=== PATIENT | male | born 1935 | race Caucasian/White ===

== ENCOUNTER → 2016-04-11 | Outpatient (REF) | payer MEDICARE, OTHER, MEDICAID ==
[2016-04-11 12:24] LABS: VITAMIN B12 LEVEL 876 PG/ML
[2016-04-11 12:25] LABS: FOLATE > 24.0 NG/ML
== END | disposition home or self-care (01) ==
LOC: M LABNEURO 11:05
PROVIDERS: ATTEND Psychiatry & Neurology Neurology
DX: G62.9 Polyneuropathy, unspecified (principal); E03.9 Hypothyroidism, unspecified; R41.3 Other amnesia

== ENCOUNTER 2017-04-18 11:20 | Inpatient (IN) | payer MEDICARE, OTHER, MEDICAID ==
[2017-04-18 11:52] LABS: BASO # 0.1 10^3/uL (0.0-0.2); BASO % 0.4 % (0.0-1.0); EOS # 0.2 10^3/uL (0.0-0.50); EOS % 1.3 % (0.0-3.0); HEMATOCRIT 38.5 % (42.0-52.0); HEMOGLOBIN 12.9 g/dl (14.0-18.0); IMMATURE GRANULOCYTE % 0.6 % (0-3.0); LYMPH # 1.1 10^3/uL (1.5-4.5); LYMPH % 8.5 % (24.0-44.0); MEAN CORPUSCULAR HEMOGLOBIN 30.1 pg (27.0-33.0); MEAN CORPUSCULAR HGB CONC 33.5 g/dl (32.0-36.5); MEAN CORPUSCULAR VOLUME 89.7 fl (80.0-96.0); MONO # 1.5 10^3/uL (0.0-0.8); NEUTROPHILS # 10.4 10^3/uL (1.8-7.7); NEUTROPHILS % 78.2 % (36.0-66.0); PLATELET COUNT, AUTOMATED 210 10^3/uL (150-450); RED BLOOD COUNT 4.29 10^6/uL (4.30-6.10); RED CELL DISTRIBUTION WIDTH 13.1 % (11.5-14.5); WHITE BLOOD COUNT 13.2 10^3/uL (4.0-10.0)
[2017-04-18 12:08] LABS: INR 0.98; PROTHROMBIN TIME 13.1 SECONDS (12.4-14.5)
[2017-04-18 12:16] LABS: CPK CREATINE PHOSPHOKINASE 37 U/L (39-308); TROPONIN I < 0.02 NG/ML (< 0.10)
[2017-04-18] MEDS: NS 500 ML IV (12:27)
[2017-04-18 13:41] LABS: ANION GAP 5 MEQ/L (8-16); BLOOD UREA NITROGEN 17 MG/DL (7-18); CALCIUM LEVEL 8.4 MG/DL (8.8-10.2); CARBON DIOXIDE LEVEL 31 MEQ/L (21-32); CHLORIDE LEVEL 94 MEQ/L (98-107); CREATININE FOR GFR 0.87 MG/DL (0.70-1.30); GLOMERULAR FILTRATION RATE > 60.0 (>35); GLUCOSE, FASTING 189 MG/DL (70-100); MAGNESIUM LEVEL 2.5 MG/DL (1.8-2.4); POTASSIUM SERUM 4.8 MEQ/L (3.5-5.1); SODIUM LEVEL 130 MEQ/L (136-145)
[2017-04-18] MEDS ORDERED: ONDANSETRON 4MG/2ML VIAL (J2405) IV (15:00)
[2017-04-18] MEDS: FUROSEMIDE 40 MG TAB PO (17:02)
[2017-04-18] MEDS: DOCUSATE SODIUM 100 MG CAP PO (17:02)
[2017-04-18] MEDS: ASPIRIN 81 MG ENTERIC TAB PO (17:03)
[2017-04-18] MEDS: CETIRIZINE (ZyrTEC) 10 MG TAB PO (17:03)
[2017-04-18 17:24] LABS: BEDSIDE GLUCOSE 148 MG/DL (83-110)
[2017-04-18] MEDS ORDERED: GLUCOSE 4 GM CHEW TABLET PO (17:45)
[2017-04-18] MEDS ORDERED: GLUCAGON FOR INJ 1 MG VIAL (J1610) SC (17:45)
[2017-04-18] MEDS ORDERED: DEXTROSE 50% 50 ML SYRINGE IV (17:45)
[2017-04-18] MEDS: HumaLOG INSULIN (NovoLOG) PER UNIT SC ×2 (18:07→21:00)
[2017-04-18 18:57] LABS: CK-MB VALUE MASS 1.1 NG/ML (0.0-3.6); CPK CREATINE PHOSPHOKINASE 36 U/L (39-308); MB/CK RELATIVE INDEX 3.05 (< OR =4); TROPONIN I < 0.02 NG/ML (< 0.10)
[2017-04-18] MEDS: HEPARIN SOD (PORCINE) 5000 UNITS/ML VIAL SC (22:08)
[2017-04-18] MEDS: COSOPT OCUMETER PLUS 10ML (DORZOLAMIDE/TIMOLOL) OU (22:08)
[2017-04-18] MEDS: LATANOPROST 0.005% OPHTH SOLN 2.5 ML OU (22:09)
[2017-04-18] MEDS: TAMSULOSIN 0.4 MG CAP PO (22:09)
[2017-04-18] MEDS: CARVedilol 3.125 MG TAB PO (22:09)
[2017-04-18] MEDS: MEMANTINE 5MG TABLET (NAMENDA) PO (22:09)
[2017-04-18] MEDS: SIMVASTATIN 20 MG TAB PO (22:10)
[2017-04-18] MEDS: FINASTERIDE 5 MG TAB PO (22:10)
[2017-04-18] MEDS: LACTOBACILLUS ACIDOPHILUS CAP (BACID) PO (22:10)
[2017-04-19 00:27] LABS: CPK CREATINE PHOSPHOKINASE 55 U/L (39-308); MB/CK RELATIVE INDEX 1.81 (< OR =4); TROPONIN I < 0.02 NG/ML (< 0.10)
[2017-04-19 06:08] LABS: HEMATOCRIT 36.3 % (42.0-52.0); HEMOGLOBIN 12.2 g/dl (14.0-18.0); MEAN CORPUSCULAR HEMOGLOBIN 29.8 pg (27.0-33.0); MEAN CORPUSCULAR HGB CONC 33.6 g/dl (32.0-36.5); MEAN CORPUSCULAR VOLUME 88.5 fl (80.0-96.0); PLATELET COUNT, AUTOMATED 193 10^3/uL (150-450); WHITE BLOOD COUNT 8.9 10^3/uL (4.0-10.0)
[2017-04-19 06:40] LABS: ESTIMATED AVERAGE GLUCOSE 143 MG/DL (60-110); HEMOGLOBIN A1c 6.6 %
[2017-04-19 07:01] LABS: ANION GAP 8 MEQ/L (8-16); BLOOD UREA NITROGEN 13 MG/DL (7-18); CALCIUM LEVEL 8.1 MG/DL (8.8-10.2); CARBON DIOXIDE LEVEL 28 MEQ/L (21-32); CHLORIDE LEVEL 93 MEQ/L (98-107); CREATININE FOR GFR 0.66 MG/DL (0.70-1.30); FREE THYROXINE INDEX 2.4 % (1.4-3.8); GLOMERULAR FILTRATION RATE > 60.0 (>35); GLUCOSE, FASTING 154 MG/DL (70-100); POTASSIUM SERUM 3.9 MEQ/L (3.5-5.1); SODIUM LEVEL 129 MEQ/L (136-145); T UPTAKE 36 % (33-40); THYROXINE (T4) 6.7 UG/DL (4.5-12.0)
[2017-04-19 08:37] LABS: BEDSIDE GLUCOSE 156 MG/DL (83-110)
[2017-04-19] MEDS: OCUVITE 1 TAB PO (09:01)
[2017-04-19] MEDS: BENZONATATE 100 MG CAP PO ×2 (09:03→21:03)
[2017-04-19] MEDS: ASPIRIN 81 MG ENTERIC TAB PO (09:03)
[2017-04-19] MEDS: MEMANTINE 5MG TABLET (NAMENDA) PO ×2 (09:03→21:04)
[2017-04-19] MEDS: DONEPEZIL 5 MG TAB PO (09:05)
[2017-04-19] MEDS: FUROSEMIDE 40 MG TAB PO (09:06)
[2017-04-19] MEDS: DOCUSATE SODIUM 100 MG CAP PO (09:06)
[2017-04-19] MEDS: CARVedilol 3.125 MG TAB PO ×2 (09:06→21:04)
[2017-04-19] MEDS: CETIRIZINE (ZyrTEC) 10 MG TAB PO (09:06)
[2017-04-19] MEDS: COSOPT OCUMETER PLUS 10ML (DORZOLAMIDE/TIMOLOL) OU ×2 (09:07→21:05)
[2017-04-19] MEDS: LATANOPROST 0.005% OPHTH SOLN 2.5 ML OU ×2 (09:07→21:05)
[2017-04-19] MEDS: HEPARIN SOD (PORCINE) 5000 UNITS/ML VIAL SC ×2 (09:07→21:03)
[2017-04-19] MEDS: HumaLOG INSULIN (NovoLOG) PER UNIT SC ×4 (09:11→21:00)
[2017-04-19 17:35] LABS: BEDSIDE GLUCOSE 237 MG/DL (83-110)
[2017-04-19 17:35] LABS: BEDSIDE GLUCOSE 165 MG/DL (83-110)
[2017-04-19] MEDS: FINASTERIDE 5 MG TAB PO (21:04)
[2017-04-19] MEDS: LACTOBACILLUS ACIDOPHILUS CAP (BACID) PO (21:04)
[2017-04-19] MEDS: SIMVASTATIN 20 MG TAB PO (21:05)
[2017-04-19] MEDS: TAMSULOSIN 0.4 MG CAP PO (21:05)
[2017-04-19 22:56] LABS: BEDSIDE GLUCOSE 170 MG/DL (83-110)
[2017-04-20] MEDS: ALBUTEROL SULFATE 2.5 MG/0.5 ML INH NEB SOLN NEB (03:18)
[2017-04-20 05:48] LABS: HEMATOCRIT 35.3 % (42.0-52.0); MEAN CORPUSCULAR HEMOGLOBIN 30.2 pg (27.0-33.0); MEAN CORPUSCULAR VOLUME 88.7 fl (80.0-96.0); PLATELET COUNT, AUTOMATED 177 10^3/uL (150-450); RED BLOOD COUNT 3.98 10^6/uL (4.30-6.10); RED CELL DISTRIBUTION WIDTH 12.8 % (11.5-14.5); WHITE BLOOD COUNT 9.6 10^3/uL (4.0-10.0)
[2017-04-20 06:06] LABS: ANION GAP 8 MEQ/L (8-16); BLOOD UREA NITROGEN 12 MG/DL (7-18); CALCIUM LEVEL 7.9 MG/DL (8.8-10.2); CARBON DIOXIDE LEVEL 28 MEQ/L (21-32); CHLORIDE LEVEL 90 MEQ/L (98-107); CREATININE FOR GFR 0.53 MG/DL (0.70-1.30); GLOMERULAR FILTRATION RATE > 60.0 (>35); GLUCOSE, FASTING 150 MG/DL (70-100); MAGNESIUM LEVEL 1.8 MG/DL (1.8-2.4); POTASSIUM SERUM 3.7 MEQ/L (3.5-5.1); SODIUM LEVEL 126 MEQ/L (136-145)
[2017-04-20] MEDS: HumaLOG INSULIN (NovoLOG) PER UNIT SC ×4 (07:30→20:45)
[2017-04-20 08:23] LABS: OSMOLALITY SERUM 260 MOSM/KG (280-301)
[2017-04-20] MEDS ORDERED: IPRATROPIUM 0.5MG/ALBUTEROL 2.5MG INH SOL UD 3ML (DUONEB)(J7620) NEB (10:30)
[2017-04-20] MEDS: DOCUSATE SODIUM 100 MG CAP PO (10:40)
[2017-04-20] MEDS: HEPARIN SOD (PORCINE) 5000 UNITS/ML VIAL SC ×2 (10:40→20:53)
[2017-04-20] MEDS: MEMANTINE 5MG TABLET (NAMENDA) PO ×2 (10:40→20:52)
[2017-04-20] MEDS: CARVedilol 3.125 MG TAB PO ×2 (10:41→20:52)
[2017-04-20] MEDS: CETIRIZINE (ZyrTEC) 10 MG TAB PO (10:42)
[2017-04-20] MEDS: FUROSEMIDE 40 MG TAB PO (10:42)
[2017-04-20] MEDS: ASPIRIN 81 MG ENTERIC TAB PO (10:42)
[2017-04-20] MEDS: DONEPEZIL 5 MG TAB PO (10:43)
[2017-04-20] MEDS: OCUVITE 1 TAB PO (10:43)
[2017-04-20] MEDS: NS 500 ML IV (10:44)
[2017-04-20 10:59] LABS: SODIUM,RANDOM URINE 94 MEQ/L
[2017-04-20] MEDS: LATANOPROST 0.005% OPHTH SOLN 2.5 ML OU ×2 (11:20→20:54)
[2017-04-20] MEDS: COSOPT OCUMETER PLUS 10ML (DORZOLAMIDE/TIMOLOL) OU ×2 (11:20→20:53)
[2017-04-20 11:35] LABS: OSMOLALITY URINE 670 MOSM/KG (500-800)
[2017-04-20 12:35] LABS: BEDSIDE GLUCOSE 191 MG/DL (83-110)
[2017-04-20 13:18] LABS: SODIUM LEVEL 125 MEQ/L (136-145)
[2017-04-20] MEDS: IPRATROPIUM 0.5MG/ALBUTEROL 2.5MG INH SOL UD 3ML (DUONEB)(J7620) NEB ×2 (13:31→21:03)
[2017-04-20] MEDS: CEFTRIAXONE SOD 1 GM in APPROPRIATE DILUENT 1 EA IV (17:22)
[2017-04-20 17:26] LABS: BEDSIDE GLUCOSE 150 MG/DL (83-110)
[2017-04-20] MEDS: TAMSULOSIN 0.4 MG CAP PO (20:52)
[2017-04-20] MEDS: LACTOBACILLUS ACIDOPHILUS CAP (BACID) PO (20:52)
[2017-04-20] MEDS: FINASTERIDE 5 MG TAB PO (20:52)
[2017-04-20] MEDS: SIMVASTATIN 20 MG TAB PO (20:52)
[2017-04-20] MEDS: SODIUM CHLORIDE 1 GM TAB PO (22:31)
[2017-04-21] MEDS: IPRATROPIUM 0.5MG/ALBUTEROL 2.5MG INH SOL UD 3ML (DUONEB)(J7620) NEB ×4 (01:21→21:19)
[2017-04-21 06:08] LABS: HEMATOCRIT 34.9 % (42.0-52.0); HEMOGLOBIN 11.9 g/dl (14.0-18.0); MEAN CORPUSCULAR HGB CONC 34.1 g/dl (32.0-36.5); MEAN CORPUSCULAR VOLUME 87.9 fl (80.0-96.0); PLATELET COUNT, AUTOMATED 162 10^3/uL (150-450); RED BLOOD COUNT 3.97 10^6/uL (4.30-6.10); RED CELL DISTRIBUTION WIDTH 12.6 % (11.5-14.5)
[2017-04-21 06:23] LABS: ANION GAP 9 MEQ/L (8-16); BLOOD UREA NITROGEN 15 MG/DL (7-18); CALCIUM LEVEL 7.8 MG/DL (8.8-10.2); CARBON DIOXIDE LEVEL 27 MEQ/L (21-32); CHLORIDE LEVEL 91 MEQ/L (98-107); GLOMERULAR FILTRATION RATE > 60.0 (>35); GLUCOSE, FASTING 131 MG/DL (70-100); MAGNESIUM LEVEL 1.9 MG/DL (1.8-2.4); POTASSIUM SERUM 3.3 MEQ/L (3.5-5.1); SODIUM LEVEL 127 MEQ/L (136-145)
[2017-04-21] MEDS: MEMANTINE 5MG TABLET (NAMENDA) PO ×2 (08:54→21:29)
[2017-04-21] MEDS: CETIRIZINE (ZyrTEC) 10 MG TAB PO (08:55)
[2017-04-21] MEDS: OCUVITE 1 TAB PO (08:55)
[2017-04-21] MEDS: ASPIRIN 81 MG ENTERIC TAB PO (08:55)
[2017-04-21] MEDS: DOCUSATE SODIUM 100 MG CAP PO (08:55)
[2017-04-21] MEDS: DONEPEZIL 5 MG TAB PO (08:55)
[2017-04-21] MEDS: FUROSEMIDE 40 MG TAB PO (08:55)
[2017-04-21] MEDS: CARVedilol 3.125 MG TAB PO ×2 (08:56→21:29)
[2017-04-21] MEDS: POTASSIUM CHLORIDE 10 MEQ SR TABLET PO (08:56)
[2017-04-21] MEDS: LATANOPROST 0.005% OPHTH SOLN 2.5 ML OU ×2 (08:57→21:29)
[2017-04-21] MEDS: HEPARIN SOD (PORCINE) 5000 UNITS/ML VIAL SC ×2 (08:57→21:29)
[2017-04-21] MEDS: HumaLOG INSULIN (NovoLOG) PER UNIT SC ×4 (08:57→20:31)
[2017-04-21] MEDS: SODIUM CHLORIDE 1 GM TAB PO ×2 (08:57→21:28)
[2017-04-21] MEDS: COSOPT OCUMETER PLUS 10ML (DORZOLAMIDE/TIMOLOL) OU ×2 (08:58→21:30)
[2017-04-21 14:21] LABS: BEDSIDE GLUCOSE 223 MG/DL (83-110)
[2017-04-21 14:21] LABS: BEDSIDE GLUCOSE 168 MG/DL (83-110)
[2017-04-21] MEDS: CEFTRIAXONE SOD 1 GM in APPROPRIATE DILUENT 1 EA IV (14:21)
[2017-04-21 16:45] LABS: BEDSIDE GLUCOSE 91 MG/DL (83-110)
[2017-04-21 20:37] LABS: BEDSIDE GLUCOSE 112 MG/DL (83-110)
[2017-04-21] MEDS: LACTOBACILLUS ACIDOPHILUS CAP (BACID) PO (21:28)
[2017-04-21] MEDS: TAMSULOSIN 0.4 MG CAP PO (21:29)
[2017-04-21] MEDS: SIMVASTATIN 20 MG TAB PO (21:29)
[2017-04-21] MEDS: FINASTERIDE 5 MG TAB PO (21:29)
[2017-04-22] MEDS: IPRATROPIUM 0.5MG/ALBUTEROL 2.5MG INH SOL UD 3ML (DUONEB)(J7620) NEB ×4 (01:42→21:18)
[2017-04-22 06:02] LABS: HEMATOCRIT 35.5 % (42.0-52.0); HEMOGLOBIN 12.1 g/dl (14.0-18.0); MEAN CORPUSCULAR HEMOGLOBIN 29.4 pg (27.0-33.0); MEAN CORPUSCULAR HGB CONC 34.1 g/dl (32.0-36.5); MEAN CORPUSCULAR VOLUME 86.4 fl (80.0-96.0); PLATELET COUNT, AUTOMATED 194 10^3/uL (150-450); RED BLOOD COUNT 4.11 10^6/uL (4.30-6.10); RED CELL DISTRIBUTION WIDTH 12.9 % (11.5-14.5); WHITE BLOOD COUNT 6.4 10^3/uL (4.0-10.0)
[2017-04-22 06:22] LABS: ANION GAP 7 MEQ/L (8-16); BLOOD UREA NITROGEN 12 MG/DL (7-18); CALCIUM LEVEL 7.8 MG/DL (8.8-10.2); CARBON DIOXIDE LEVEL 28 MEQ/L (21-32); CHLORIDE LEVEL 91 MEQ/L (98-107); CREATININE FOR GFR 0.52 MG/DL (0.70-1.30); GLOMERULAR FILTRATION RATE > 60.0 (>35); GLUCOSE, FASTING 144 MG/DL (70-100); MAGNESIUM LEVEL 1.9 MG/DL (1.8-2.4); POTASSIUM SERUM 3.8 MEQ/L (3.5-5.1); SODIUM LEVEL 126 MEQ/L (136-145)
[2017-04-22] MEDS: HumaLOG INSULIN (NovoLOG) PER UNIT SC ×4 (07:30→20:35)
[2017-04-22] MEDS: DONEPEZIL 5 MG TAB PO (08:27)
[2017-04-22] MEDS: CETIRIZINE (ZyrTEC) 10 MG TAB PO (08:28)
[2017-04-22] MEDS: DOCUSATE SODIUM 100 MG CAP PO (08:28)
[2017-04-22] MEDS: OCUVITE 1 TAB PO (08:28)
[2017-04-22] MEDS: MEMANTINE 5MG TABLET (NAMENDA) PO ×2 (08:28→22:25)
[2017-04-22] MEDS: ASPIRIN 81 MG ENTERIC TAB PO (08:28)
[2017-04-22] MEDS: COSOPT OCUMETER PLUS 10ML (DORZOLAMIDE/TIMOLOL) OU ×2 (08:29→22:26)
[2017-04-22] MEDS: HEPARIN SOD (PORCINE) 5000 UNITS/ML VIAL SC ×2 (08:29→22:24)
[2017-04-22] MEDS: LATANOPROST 0.005% OPHTH SOLN 2.5 ML OU ×2 (08:29→22:26)
[2017-04-22] MEDS: FUROSEMIDE 40 MG TAB PO ×2 (09:00)
[2017-04-22] MEDS: CARVedilol 3.125 MG TAB PO ×2 (09:00→22:25)
[2017-04-22 09:40] LABS: CORTISOL AM 22.4 UG/DL (4.3-22.4)
[2017-04-22] MEDS: SODIUM CHLORIDE 1 GM TAB PO ×3 (10:26→22:28)
[2017-04-22 12:01] LABS: BEDSIDE GLUCOSE 188 MG/DL (83-110)
[2017-04-22] MEDS: CEFTRIAXONE SOD 1 GM in APPROPRIATE DILUENT 1 EA IV (13:32)
[2017-04-22 17:07] LABS: BEDSIDE GLUCOSE 136 MG/DL (83-110)
[2017-04-22 20:31] LABS: BEDSIDE GLUCOSE 173 MG/DL (83-110)
[2017-04-22] MEDS: LACTOBACILLUS ACIDOPHILUS CAP (BACID) PO (22:24)
[2017-04-22] MEDS: TAMSULOSIN 0.4 MG CAP PO (22:25)
[2017-04-22] MEDS: SIMVASTATIN 20 MG TAB PO (22:25)
[2017-04-22] MEDS: FINASTERIDE 5 MG TAB PO (22:25)
[2017-04-23] MEDS: IPRATROPIUM 0.5MG/ALBUTEROL 2.5MG INH SOL UD 3ML (DUONEB)(J7620) NEB ×4 (01:29→19:44)
[2017-04-23 06:49] LABS: HEMATOCRIT 36.7 % (42.0-52.0); HEMOGLOBIN 12.5 g/dl (14.0-18.0); MEAN CORPUSCULAR HEMOGLOBIN 29.6 pg (27.0-33.0); MEAN CORPUSCULAR HGB CONC 34.1 g/dl (32.0-36.5); PLATELET COUNT, AUTOMATED 215 10^3/uL (150-450); RED BLOOD COUNT 4.22 10^6/uL (4.30-6.10); RED CELL DISTRIBUTION WIDTH 12.9 % (11.5-14.5); WHITE BLOOD COUNT 8.4 10^3/uL (4.0-10.0)
[2017-04-23 07:05] LABS: ANION GAP 7 MEQ/L (8-16); BLOOD UREA NITROGEN 11 MG/DL (7-18); CALCIUM LEVEL 8.1 MG/DL (8.8-10.2); CARBON DIOXIDE LEVEL 29 MEQ/L (21-32); CHLORIDE LEVEL 91 MEQ/L (98-107); CREATININE FOR GFR 0.58 MG/DL (0.70-1.30); GLOMERULAR FILTRATION RATE > 60.0 (>35); GLUCOSE, FASTING 141 MG/DL (70-100); MAGNESIUM LEVEL 1.9 MG/DL (1.8-2.4); POTASSIUM SERUM 3.9 MEQ/L (3.5-5.1); SODIUM LEVEL 127 MEQ/L (136-145)
[2017-04-23] MEDS: HumaLOG INSULIN (NovoLOG) PER UNIT SC ×4 (07:30→20:42)
[2017-04-23] MEDS: SODIUM CHLORIDE 1 GM TAB PO ×3 (09:47→20:53)
[2017-04-23] MEDS: HEPARIN SOD (PORCINE) 5000 UNITS/ML VIAL SC ×2 (09:47→20:53)
[2017-04-23] MEDS: DOCUSATE SODIUM 100 MG CAP PO (09:47)
[2017-04-23] MEDS: MEMANTINE 5MG TABLET (NAMENDA) PO ×2 (09:48→20:53)
[2017-04-23] MEDS: ASPIRIN 81 MG ENTERIC TAB PO (09:48)
[2017-04-23] MEDS: OCUVITE 1 TAB PO (09:48)
[2017-04-23] MEDS: FUROSEMIDE 40 MG TAB PO (09:49)
[2017-04-23] MEDS: CETIRIZINE (ZyrTEC) 10 MG TAB PO (09:49)
[2017-04-23] MEDS: DONEPEZIL 5 MG TAB PO (09:49)
[2017-04-23] MEDS: CARVedilol 3.125 MG TAB PO ×2 (09:50→20:54)
[2017-04-23] MEDS: LATANOPROST 0.005% OPHTH SOLN 2.5 ML OU ×2 (09:52→20:53)
[2017-04-23] MEDS: COSOPT OCUMETER PLUS 10ML (DORZOLAMIDE/TIMOLOL) OU ×2 (09:53→20:53)
[2017-04-23 11:57] LABS: BEDSIDE GLUCOSE 307 MG/DL (83-110)
[2017-04-23] MEDS: CEFTRIAXONE SOD 1 GM in APPROPRIATE DILUENT 1 EA IV (13:06)
[2017-04-23] MEDS: ACETAMINOPHEN TAB 650MG DOSE (2X325MG) PO (13:10)
[2017-04-23 17:34] LABS: BEDSIDE GLUCOSE 133 MG/DL (83-110)
[2017-04-23] MEDS: FINASTERIDE 5 MG TAB PO (20:53)
[2017-04-23] MEDS: LACTOBACILLUS ACIDOPHILUS CAP (BACID) PO (20:53)
[2017-04-23] MEDS: TAMSULOSIN 0.4 MG CAP PO (20:53)
[2017-04-23] MEDS: SIMVASTATIN 20 MG TAB PO (20:54)
[2017-04-23 21:22] LABS: BEDSIDE GLUCOSE 129 MG/DL (83-110)
[2017-04-24] MEDS: IPRATROPIUM 0.5MG/ALBUTEROL 2.5MG INH SOL UD 3ML (DUONEB)(J7620) NEB ×4 (01:21→21:49)
[2017-04-24 06:28] LABS: HEMATOCRIT 34.6 % (42.0-52.0); HEMOGLOBIN 11.8 g/dl (14.0-18.0); MEAN CORPUSCULAR HEMOGLOBIN 29.8 pg (27.0-33.0); MEAN CORPUSCULAR HGB CONC 34.1 g/dl (32.0-36.5); MEAN CORPUSCULAR VOLUME 87.4 fl (80.0-96.0); PLATELET COUNT, AUTOMATED 218 10^3/uL (150-450); RED BLOOD COUNT 3.96 10^6/uL (4.30-6.10); RED CELL DISTRIBUTION WIDTH 12.5 % (11.5-14.5); WHITE BLOOD COUNT 8.1 10^3/uL (4.0-10.0)
[2017-04-24 06:38] LABS: ANION GAP 7 MEQ/L (8-16); BLOOD UREA NITROGEN 10 MG/DL (7-18); CALCIUM LEVEL 8.1 MG/DL (8.8-10.2); CARBON DIOXIDE LEVEL 30 MEQ/L (21-32); CHLORIDE LEVEL 90 MEQ/L (98-107); CREATININE FOR GFR 0.46 MG/DL (0.70-1.30); GLOMERULAR FILTRATION RATE > 60.0 (>35); GLUCOSE, FASTING 129 MG/DL (70-100); MAGNESIUM LEVEL 1.8 MG/DL (1.8-2.4); POTASSIUM SERUM 3.7 MEQ/L (3.5-5.1); SODIUM LEVEL 127 MEQ/L (136-145)
[2017-04-24] MEDS: HumaLOG INSULIN (NovoLOG) PER UNIT SC ×4 (07:30→22:07)
[2017-04-24] MEDS: DONEPEZIL 5 MG TAB PO (10:31)
[2017-04-24] MEDS: OCUVITE 1 TAB PO (10:32)
[2017-04-24] MEDS: CARVedilol 3.125 MG TAB PO ×2 (10:32→22:08)
[2017-04-24] MEDS: ASPIRIN 81 MG ENTERIC TAB PO (10:32)
[2017-04-24] MEDS: DOCUSATE SODIUM 100 MG CAP PO (10:32)
[2017-04-24] MEDS: FUROSEMIDE 40 MG TAB PO (10:33)
[2017-04-24] MEDS: SODIUM CHLORIDE 1 GM TAB PO ×3 (10:33→22:07)
[2017-04-24] MEDS: MEMANTINE 5MG TABLET (NAMENDA) PO ×2 (10:33→22:08)
[2017-04-24] MEDS: CETIRIZINE (ZyrTEC) 10 MG TAB PO (10:33)
[2017-04-24] MEDS: HEPARIN SOD (PORCINE) 5000 UNITS/ML VIAL SC ×2 (10:34→22:07)
[2017-04-24] MEDS: COSOPT OCUMETER PLUS 10ML (DORZOLAMIDE/TIMOLOL) OU ×2 (10:34→22:06)
[2017-04-24] MEDS: LATANOPROST 0.005% OPHTH SOLN 2.5 ML OU ×2 (10:34→22:06)
[2017-04-24 12:09] LABS: BEDSIDE GLUCOSE 260 MG/DL (83-110)
[2017-04-24] MEDS: CEFTRIAXONE SOD 1 GM in APPROPRIATE DILUENT 1 EA IV (14:41)
[2017-04-24 20:53] LABS: BEDSIDE GLUCOSE 202 MG/DL (83-110)
[2017-04-24 21:30] LABS: BEDSIDE GLUCOSE 109 MG/DL (83-110)
[2017-04-24] MEDS: LACTOBACILLUS ACIDOPHILUS CAP (BACID) PO (22:07)
[2017-04-24] MEDS: TAMSULOSIN 0.4 MG CAP PO (22:08)
[2017-04-24] MEDS: SIMVASTATIN 20 MG TAB PO (22:08)
[2017-04-24] MEDS: FINASTERIDE 5 MG TAB PO (22:08)
[2017-04-25] MEDS: IPRATROPIUM 0.5MG/ALBUTEROL 2.5MG INH SOL UD 3ML (DUONEB)(J7620) NEB ×4 (02:00→21:55)
[2017-04-25 06:08] LABS: HEMATOCRIT 35.9 % (42.0-52.0); HEMOGLOBIN 12.2 g/dl (14.0-18.0); MEAN CORPUSCULAR HEMOGLOBIN 29.4 pg (27.0-33.0); MEAN CORPUSCULAR VOLUME 86.5 fl (80.0-96.0); PLATELET COUNT, AUTOMATED 244 10^3/uL (150-450); RED BLOOD COUNT 4.15 10^6/uL (4.30-6.10); RED CELL DISTRIBUTION WIDTH 12.7 % (11.5-14.5); WHITE BLOOD COUNT 7.8 10^3/uL (4.0-10.0)
[2017-04-25 06:25] LABS: ANION GAP 8 MEQ/L (8-16); BLOOD UREA NITROGEN 10 MG/DL (7-18); CALCIUM LEVEL 8.2 MG/DL (8.8-10.2); CARBON DIOXIDE LEVEL 28 MEQ/L (21-32); CHLORIDE LEVEL 92 MEQ/L (98-107); CREATININE FOR GFR 0.45 MG/DL (0.70-1.30); GLOMERULAR FILTRATION RATE > 60.0 (>35); GLUCOSE, FASTING 120 MG/DL (70-100); POTASSIUM SERUM 3.8 MEQ/L (3.5-5.1); SODIUM LEVEL 128 MEQ/L (136-145)
[2017-04-25] MEDS: HumaLOG INSULIN (NovoLOG) PER UNIT SC ×4 (07:13→21:00)
[2017-04-25] MEDS: FUROSEMIDE 40 MG TAB PO (08:13)
[2017-04-25] MEDS: ASPIRIN 81 MG ENTERIC TAB PO (08:13)
[2017-04-25] MEDS: DOCUSATE SODIUM 100 MG CAP PO (08:13)
[2017-04-25] MEDS: CARVedilol 3.125 MG TAB PO ×2 (08:14→21:33)
[2017-04-25] MEDS: DONEPEZIL 5 MG TAB PO (08:14)
[2017-04-25] MEDS: CETIRIZINE (ZyrTEC) 10 MG TAB PO (08:14)
[2017-04-25] MEDS: MEMANTINE 5MG TABLET (NAMENDA) PO ×2 (08:14→21:32)
[2017-04-25] MEDS: SODIUM CHLORIDE 1 GM TAB PO ×3 (08:14→21:32)
[2017-04-25] MEDS: OCUVITE 1 TAB PO (08:14)
[2017-04-25] MEDS: COSOPT OCUMETER PLUS 10ML (DORZOLAMIDE/TIMOLOL) OU ×2 (08:15→21:34)
[2017-04-25] MEDS: HEPARIN SOD (PORCINE) 5000 UNITS/ML VIAL SC ×2 (08:15→21:34)
[2017-04-25] MEDS: LATANOPROST 0.005% OPHTH SOLN 2.5 ML OU ×2 (08:15→21:34)
[2017-04-25 11:44] LABS: BEDSIDE GLUCOSE 159 MG/DL (83-110)
[2017-04-25] MEDS: CEFTRIAXONE SOD 1 GM in APPROPRIATE DILUENT 1 EA IV (14:33)
[2017-04-25 16:39] LABS: BEDSIDE GLUCOSE 152 MG/DL (83-110)
[2017-04-25] MEDS: FINASTERIDE 5 MG TAB PO (21:32)
[2017-04-25] MEDS: LACTOBACILLUS ACIDOPHILUS CAP (BACID) PO (21:32)
[2017-04-25] MEDS: TAMSULOSIN 0.4 MG CAP PO (21:33)
[2017-04-25] MEDS: SIMVASTATIN 20 MG TAB PO (21:33)
[2017-04-25 22:33] LABS: BEDSIDE GLUCOSE 163 MG/DL (83-110)
[2017-04-26] MEDS: IPRATROPIUM 0.5MG/ALBUTEROL 2.5MG INH SOL UD 3ML (DUONEB)(J7620) NEB ×4 (02:00→19:17)
[2017-04-26 06:07] LABS: BEDSIDE GLUCOSE 126 MG/DL (83-110)
[2017-04-26] MEDS: HumaLOG INSULIN (NovoLOG) PER UNIT SC ×4 (07:30→22:41)
[2017-04-26] MEDS: OCUVITE 1 TAB PO (09:50)
[2017-04-26] MEDS: DOCUSATE SODIUM 100 MG CAP PO (09:50)
[2017-04-26] MEDS: HEPARIN SOD (PORCINE) 5000 UNITS/ML VIAL SC ×2 (09:50→20:10)
[2017-04-26] MEDS: DONEPEZIL 5 MG TAB PO (09:50)
[2017-04-26] MEDS: LATANOPROST 0.005% OPHTH SOLN 2.5 ML OU ×2 (09:51→20:10)
[2017-04-26] MEDS: ASPIRIN 81 MG ENTERIC TAB PO (09:51)
[2017-04-26] MEDS: FUROSEMIDE 40 MG TAB PO (09:51)
[2017-04-26] MEDS: CETIRIZINE (ZyrTEC) 10 MG TAB PO (09:51)
[2017-04-26] MEDS: SODIUM CHLORIDE 1 GM TAB PO ×3 (09:51→20:12)
[2017-04-26] MEDS: MEMANTINE 5MG TABLET (NAMENDA) PO ×2 (09:51→20:11)
[2017-04-26] MEDS: CARVedilol 3.125 MG TAB PO ×2 (09:51→21:26)
[2017-04-26] MEDS: COSOPT OCUMETER PLUS 10ML (DORZOLAMIDE/TIMOLOL) OU ×2 (09:52→20:10)
[2017-04-26 12:55] LABS: BEDSIDE GLUCOSE 145 MG/DL (83-110)
[2017-04-26 18:00] LABS: BEDSIDE GLUCOSE 142 MG/DL (83-110)
[2017-04-26] MEDS: FINASTERIDE 5 MG TAB PO (20:11)
[2017-04-26] MEDS: SIMVASTATIN 20 MG TAB PO (20:11)
[2017-04-26] MEDS: TAMSULOSIN 0.4 MG CAP PO (20:11)
[2017-04-26] MEDS: CEFDINIR 300 MG CAP (OMNICEF) PO (20:12)
[2017-04-26] MEDS: LACTOBACILLUS ACIDOPHILUS CAP (BACID) PO (20:12)
[2017-04-26 22:20] LABS: BEDSIDE GLUCOSE 275 MG/DL (83-110)
[2017-04-27] MEDS: IPRATROPIUM 0.5MG/ALBUTEROL 2.5MG INH SOL UD 3ML (DUONEB)(J7620) NEB ×4 (01:27→20:00)
[2017-04-27 06:07] LABS: HEMATOCRIT 35.3 % (42.0-52.0); MEAN CORPUSCULAR HEMOGLOBIN 29.6 pg (27.0-33.0); MEAN CORPUSCULAR VOLUME 87.2 fl (80.0-96.0); PLATELET COUNT, AUTOMATED 270 10^3/uL (150-450); RED BLOOD COUNT 4.05 10^6/uL (4.30-6.10); RED CELL DISTRIBUTION WIDTH 12.8 % (11.5-14.5)
[2017-04-27 06:25] LABS: ANION GAP 6 MEQ/L (8-16); BLOOD UREA NITROGEN 16 MG/DL (7-18); CALCIUM LEVEL 8.3 MG/DL (8.8-10.2); CARBON DIOXIDE LEVEL 31 MEQ/L (21-32); CHLORIDE LEVEL 94 MEQ/L (98-107); CREATININE FOR GFR 0.62 MG/DL (0.70-1.30); GLOMERULAR FILTRATION RATE > 60.0 (>35); GLUCOSE, FASTING 104 MG/DL (70-100); POTASSIUM SERUM 3.9 MEQ/L (3.5-5.1); SODIUM LEVEL 131 MEQ/L (136-145)
[2017-04-27] MEDS: HumaLOG INSULIN (NovoLOG) PER UNIT SC ×4 (07:40→21:00)
[2017-04-27] MEDS: CARVedilol 3.125 MG TAB PO ×3 (08:23→21:31)
[2017-04-27] MEDS: OCUVITE 1 TAB PO (08:44)
[2017-04-27] MEDS: DOCUSATE SODIUM 100 MG CAP PO (08:44)
[2017-04-27] MEDS: MEMANTINE 5MG TABLET (NAMENDA) PO ×2 (08:44→21:31)
[2017-04-27] MEDS: CETIRIZINE (ZyrTEC) 10 MG TAB PO (08:45)
[2017-04-27] MEDS: CEFDINIR 300 MG CAP (OMNICEF) PO (08:45)
[2017-04-27] MEDS: SODIUM CHLORIDE 1 GM TAB PO ×3 (08:45→21:29)
[2017-04-27] MEDS: DONEPEZIL 5 MG TAB PO (08:45)
[2017-04-27] MEDS: ASPIRIN 81 MG ENTERIC TAB PO (08:45)
[2017-04-27] MEDS: FUROSEMIDE 40 MG TAB PO (08:45)
[2017-04-27] MEDS: LATANOPROST 0.005% OPHTH SOLN 2.5 ML OU ×2 (08:47→21:31)
[2017-04-27] MEDS: HEPARIN SOD (PORCINE) 5000 UNITS/ML VIAL SC ×2 (08:47→21:29)
[2017-04-27] MEDS: COSOPT OCUMETER PLUS 10ML (DORZOLAMIDE/TIMOLOL) OU ×2 (08:47→21:31)
[2017-04-27 12:03] LABS: BEDSIDE GLUCOSE 161 MG/DL (83-110)
[2017-04-27 17:31] LABS: BEDSIDE GLUCOSE 137 MG/DL (83-110)
[2017-04-27 20:41] LABS: BEDSIDE GLUCOSE 161 MG/DL (83-110)
[2017-04-27] MEDS: FINASTERIDE 5 MG TAB PO (21:29)
[2017-04-27] MEDS: LACTOBACILLUS ACIDOPHILUS CAP (BACID) PO (21:29)
[2017-04-27] MEDS: TAMSULOSIN 0.4 MG CAP PO (21:29)
[2017-04-27] MEDS: SIMVASTATIN 20 MG TAB PO (21:30)
[2017-04-28] MEDS: IPRATROPIUM 0.5MG/ALBUTEROL 2.5MG INH SOL UD 3ML (DUONEB)(J7620) NEB ×4 (01:52→19:53)
[2017-04-28 07:19] LABS: BEDSIDE GLUCOSE 112 MG/DL (83-110)
[2017-04-28] MEDS: HumaLOG INSULIN (NovoLOG) PER UNIT SC ×4 (07:30→21:00)
[2017-04-28] MEDS: OCUVITE 1 TAB PO (08:50)
[2017-04-28] MEDS: HEPARIN SOD (PORCINE) 5000 UNITS/ML VIAL SC ×2 (08:50→21:57)
[2017-04-28] MEDS: DONEPEZIL 5 MG TAB PO (08:51)
[2017-04-28] MEDS: DOCUSATE SODIUM 100 MG CAP PO (08:51)
[2017-04-28] MEDS: MEMANTINE 5MG TABLET (NAMENDA) PO ×2 (08:51→21:56)
[2017-04-28] MEDS: SODIUM CHLORIDE 1 GM TAB PO ×3 (08:51→22:00)
[2017-04-28] MEDS: FUROSEMIDE 40 MG TAB PO (08:51)
[2017-04-28] MEDS: CARVedilol 3.125 MG TAB PO ×2 (08:52→21:57)
[2017-04-28] MEDS: ASPIRIN 81 MG ENTERIC TAB PO (08:53)
[2017-04-28] MEDS: LATANOPROST 0.005% OPHTH SOLN 2.5 ML OU ×2 (08:53→21:00)
[2017-04-28] MEDS: CETIRIZINE (ZyrTEC) 10 MG TAB PO (08:53)
[2017-04-28] MEDS: COSOPT OCUMETER PLUS 10ML (DORZOLAMIDE/TIMOLOL) OU ×2 (08:53→21:00)
[2017-04-28 12:18] LABS: BEDSIDE GLUCOSE 182 MG/DL (83-110)
[2017-04-28 17:22] LABS: BEDSIDE GLUCOSE 131 MG/DL (83-110)
[2017-04-28 20:30] LABS: BEDSIDE GLUCOSE 241 MG/DL (83-110)
[2017-04-28] MEDS: LACTOBACILLUS ACIDOPHILUS CAP (BACID) PO (21:56)
[2017-04-28] MEDS: FINASTERIDE 5 MG TAB PO (21:56)
[2017-04-28] MEDS: TAMSULOSIN 0.4 MG CAP PO (21:56)
[2017-04-28] MEDS: SIMVASTATIN 20 MG TAB PO (21:57)
[2017-04-29] MEDS: IPRATROPIUM 0.5MG/ALBUTEROL 2.5MG INH SOL UD 3ML (DUONEB)(J7620) NEB ×4 (02:00→19:38)
[2017-04-29 05:55] LABS: BEDSIDE GLUCOSE 112 MG/DL (83-110)
[2017-04-29] MEDS: HumaLOG INSULIN (NovoLOG) PER UNIT SC ×4 (07:29→20:46)
[2017-04-29] MEDS: FUROSEMIDE 40 MG TAB PO ×2 (09:00→10:01)
[2017-04-29] MEDS: CARVedilol 3.125 MG TAB PO ×2 (09:00→21:26)
[2017-04-29] MEDS: CETIRIZINE (ZyrTEC) 10 MG TAB PO (10:00)
[2017-04-29] MEDS: SODIUM CHLORIDE 1 GM TAB PO (10:00)
[2017-04-29] MEDS: OCUVITE 1 TAB PO (10:01)
[2017-04-29] MEDS: MEMANTINE 5MG TABLET (NAMENDA) PO ×2 (10:01→21:25)
[2017-04-29] MEDS: ASPIRIN 81 MG ENTERIC TAB PO (10:01)
[2017-04-29] MEDS: HEPARIN SOD (PORCINE) 5000 UNITS/ML VIAL SC ×2 (10:02→21:26)
[2017-04-29] MEDS: DOCUSATE SODIUM 100 MG CAP PO (10:02)
[2017-04-29] MEDS: DONEPEZIL 5 MG TAB PO (10:02)
[2017-04-29] MEDS: COSOPT OCUMETER PLUS 10ML (DORZOLAMIDE/TIMOLOL) OU ×2 (10:05→21:27)
[2017-04-29] MEDS: LATANOPROST 0.005% OPHTH SOLN 2.5 ML OU ×2 (10:06→21:27)
[2017-04-29] MEDS: NS 500 ML IV (10:30)
[2017-04-29 13:31] LABS: HEMATOCRIT 37.4 % (42.0-52.0); HEMOGLOBIN 12.3 g/dl (14.0-18.0); MEAN CORPUSCULAR HEMOGLOBIN 29.6 pg (27.0-33.0); MEAN CORPUSCULAR HGB CONC 32.9 g/dl (32.0-36.5); MEAN CORPUSCULAR VOLUME 90.1 fl (80.0-96.0); PLATELET COUNT, AUTOMATED 278 10^3/uL (150-450); RED BLOOD COUNT 4.15 10^6/uL (4.30-6.10); RED CELL DISTRIBUTION WIDTH 13.2 % (11.5-14.5); WHITE BLOOD COUNT 9.3 10^3/uL (4.0-10.0)
[2017-04-29 13:51] LABS: ANION GAP 4 MEQ/L (8-16); BLOOD UREA NITROGEN 24 MG/DL (7-18); CALCIUM LEVEL 8.5 MG/DL (8.8-10.2); CARBON DIOXIDE LEVEL 31 MEQ/L (21-32); CHLORIDE LEVEL 101 MEQ/L (98-107); CREATININE FOR GFR 0.75 MG/DL (0.70-1.30); GLOMERULAR FILTRATION RATE > 60.0 (>35); GLUCOSE, FASTING 163 MG/DL (70-100); POTASSIUM SERUM 3.9 MEQ/L (3.5-5.1); SODIUM LEVEL 136 MEQ/L (136-145)
[2017-04-29] MEDS: LACTOBACILLUS ACIDOPHILUS CAP (BACID) PO (21:25)
[2017-04-29] MEDS: TAMSULOSIN 0.4 MG CAP PO (21:26)
[2017-04-29] MEDS: SIMVASTATIN 20 MG TAB PO (21:26)
[2017-04-29] MEDS: FINASTERIDE 5 MG TAB PO (21:26)
[2017-04-30] MEDS: IPRATROPIUM 0.5MG/ALBUTEROL 2.5MG INH SOL UD 3ML (DUONEB)(J7620) NEB ×4 (02:00→19:52)
[2017-04-30 05:56] LABS: HEMATOCRIT 35.9 % (42.0-52.0); HEMOGLOBIN 11.9 g/dl (14.0-18.0); MEAN CORPUSCULAR HEMOGLOBIN 29.8 pg (27.0-33.0); MEAN CORPUSCULAR HGB CONC 33.1 g/dl (32.0-36.5); PLATELET COUNT, AUTOMATED 273 10^3/uL (150-450); RED BLOOD COUNT 3.99 10^6/uL (4.30-6.10); RED CELL DISTRIBUTION WIDTH 13.2 % (11.5-14.5); WHITE BLOOD COUNT 8.9 10^3/uL (4.0-10.0)
[2017-04-30 06:15] LABS: ANION GAP 4 MEQ/L (8-16); BLOOD UREA NITROGEN 22 MG/DL (7-18); CALCIUM LEVEL 8.2 MG/DL (8.8-10.2); CARBON DIOXIDE LEVEL 33 MEQ/L (21-32); CHLORIDE LEVEL 100 MEQ/L (98-107); CREATININE FOR GFR 0.63 MG/DL (0.70-1.30); GLOMERULAR FILTRATION RATE > 60.0 (>35); GLUCOSE, FASTING 121 MG/DL (70-100); SODIUM LEVEL 137 MEQ/L (136-145)
[2017-04-30] MEDS: HumaLOG INSULIN (NovoLOG) PER UNIT SC ×4 (07:26→21:00)
[2017-04-30] MEDS: CARVedilol 3.125 MG TAB PO ×2 (08:51→20:29)
[2017-04-30] MEDS: FUROSEMIDE 40 MG TAB PO (08:52)
[2017-04-30 09:06] LABS: BEDSIDE GLUCOSE 168 MG/DL (83-110)
[2017-04-30 09:13] LABS: BEDSIDE GLUCOSE 141 MG/DL (83-110)
[2017-04-30 09:13] LABS: BEDSIDE GLUCOSE 189 MG/DL (83-110)
[2017-04-30] MEDS: CETIRIZINE (ZyrTEC) 10 MG TAB PO (09:17)
[2017-04-30] MEDS: DOCUSATE SODIUM 100 MG CAP PO (09:17)
[2017-04-30] MEDS: ASPIRIN 81 MG ENTERIC TAB PO (09:17)
[2017-04-30] MEDS: OCUVITE 1 TAB PO (09:17)
[2017-04-30] MEDS: MEMANTINE 5MG TABLET (NAMENDA) PO ×2 (09:17→20:28)
[2017-04-30] MEDS: DONEPEZIL 5 MG TAB PO (09:18)
[2017-04-30] MEDS: LATANOPROST 0.005% OPHTH SOLN 2.5 ML OU ×2 (09:18→20:29)
[2017-04-30] MEDS: HEPARIN SOD (PORCINE) 5000 UNITS/ML VIAL SC ×2 (09:18→20:28)
[2017-04-30] MEDS: COSOPT OCUMETER PLUS 10ML (DORZOLAMIDE/TIMOLOL) OU ×2 (09:18→20:29)
[2017-04-30] MEDS: SODIUM CHLORIDE 1 GM TAB PO (09:18)
[2017-04-30 12:40] LABS: BEDSIDE GLUCOSE 120 MG/DL (83-110)
[2017-04-30 17:07] LABS: BEDSIDE GLUCOSE 130 MG/DL (83-110)
[2017-04-30] MEDS: LACTOBACILLUS ACIDOPHILUS CAP (BACID) PO (20:27)
[2017-04-30] MEDS: TAMSULOSIN 0.4 MG CAP PO (20:28)
[2017-04-30] MEDS: FINASTERIDE 5 MG TAB PO (20:28)
[2017-04-30] MEDS: SIMVASTATIN 20 MG TAB PO (20:28)
[2017-04-30 21:12] LABS: BEDSIDE GLUCOSE 133 MG/DL (83-110)
[2017-05-01] MEDS: IPRATROPIUM 0.5MG/ALBUTEROL 2.5MG INH SOL UD 3ML (DUONEB)(J7620) NEB ×4 (00:35→20:00)
[2017-05-01 06:05] LABS: BEDSIDE GLUCOSE 116 MG/DL (83-110)
[2017-05-01] MEDS: ASPIRIN 81 MG ENTERIC TAB PO (08:43)
[2017-05-01] MEDS: HumaLOG INSULIN (NovoLOG) PER UNIT SC ×4 (08:43→21:00)
[2017-05-01] MEDS: CETIRIZINE (ZyrTEC) 10 MG TAB PO (08:43)
[2017-05-01] MEDS: OCUVITE 1 TAB PO (08:43)
[2017-05-01] MEDS: DONEPEZIL 5 MG TAB PO (08:43)
[2017-05-01] MEDS: MEMANTINE 5MG TABLET (NAMENDA) PO ×2 (08:44→20:25)
[2017-05-01] MEDS: FUROSEMIDE 40 MG TAB PO (08:44)
[2017-05-01] MEDS: DOCUSATE SODIUM 100 MG CAP PO (08:44)
[2017-05-01] MEDS: CARVedilol 3.125 MG TAB PO ×2 (08:44→20:26)
[2017-05-01] MEDS: HEPARIN SOD (PORCINE) 5000 UNITS/ML VIAL SC ×2 (08:45→20:26)
[2017-05-01] MEDS: COSOPT OCUMETER PLUS 10ML (DORZOLAMIDE/TIMOLOL) OU ×2 (08:45→20:27)
[2017-05-01] MEDS: LATANOPROST 0.005% OPHTH SOLN 2.5 ML OU ×2 (08:45→20:27)
[2017-05-01] MEDS: SODIUM CHLORIDE 1 GM TAB PO (08:47)
[2017-05-01 12:21] LABS: BEDSIDE GLUCOSE 176 MG/DL (83-110)
[2017-05-01 13:01] LABS: ANION GAP 8 MEQ/L (8-16); BLOOD UREA NITROGEN 23 MG/DL (7-18); CALCIUM LEVEL 8.6 MG/DL (8.8-10.2); CARBON DIOXIDE LEVEL 29 MEQ/L (21-32); CHLORIDE LEVEL 99 MEQ/L (98-107); CREATININE FOR GFR 1.06 MG/DL (0.70-1.30); GLUCOSE, FASTING 176 MG/DL (70-100); POTASSIUM SERUM 3.8 MEQ/L (3.5-5.1); SODIUM LEVEL 136 MEQ/L (136-145)
[2017-05-01 13:04] LABS: GLOMERULAR FILTRATION RATE > 60.0 (>35)
[2017-05-01 17:03] LABS: BEDSIDE GLUCOSE 114 MG/DL (83-110)
[2017-05-01] MEDS: TAMSULOSIN 0.4 MG CAP PO (20:25)
[2017-05-01] MEDS: LACTOBACILLUS ACIDOPHILUS CAP (BACID) PO (20:25)
[2017-05-01] MEDS: SIMVASTATIN 20 MG TAB PO (20:25)
[2017-05-01] MEDS: FINASTERIDE 5 MG TAB PO (20:25)
[2017-05-02 00:28] LABS: BEDSIDE GLUCOSE 202 MG/DL (83-110)
[2017-05-02] MEDS: IPRATROPIUM 0.5MG/ALBUTEROL 2.5MG INH SOL UD 3ML (DUONEB)(J7620) NEB ×4 (02:08→20:00)
[2017-05-02 06:42] LABS: BEDSIDE GLUCOSE 117 MG/DL (83-110)
[2017-05-02] MEDS: HumaLOG INSULIN (NovoLOG) PER UNIT SC ×4 (07:30→21:00)
[2017-05-02] MEDS: HEPARIN SOD (PORCINE) 5000 UNITS/ML VIAL SC ×2 (08:02→20:19)
[2017-05-02] MEDS: CETIRIZINE (ZyrTEC) 10 MG TAB PO (08:03)
[2017-05-02] MEDS: MEMANTINE 5MG TABLET (NAMENDA) PO ×2 (08:03→20:19)
[2017-05-02] MEDS: FUROSEMIDE 40 MG TAB PO (08:03)
[2017-05-02] MEDS: SODIUM CHLORIDE 1 GM TAB PO (08:03)
[2017-05-02] MEDS: CARVedilol 3.125 MG TAB PO ×2 (08:03→20:23)
[2017-05-02] MEDS: ASPIRIN 81 MG ENTERIC TAB PO (08:03)
[2017-05-02] MEDS: DOCUSATE SODIUM 100 MG CAP PO (08:03)
[2017-05-02] MEDS: DONEPEZIL 5 MG TAB PO (08:03)
[2017-05-02] MEDS: OCUVITE 1 TAB PO (08:03)
[2017-05-02] MEDS: COSOPT OCUMETER PLUS 10ML (DORZOLAMIDE/TIMOLOL) OU ×2 (08:04→20:20)
[2017-05-02] MEDS: LATANOPROST 0.005% OPHTH SOLN 2.5 ML OU ×2 (08:15→20:20)
[2017-05-02 12:07] LABS: BEDSIDE GLUCOSE 196 MG/DL (83-110)
[2017-05-02 17:16] LABS: BEDSIDE GLUCOSE 221 MG/DL (83-110)
[2017-05-02] MEDS: SIMVASTATIN 20 MG TAB PO (20:19)
[2017-05-02] MEDS: LACTOBACILLUS ACIDOPHILUS CAP (BACID) PO (20:19)
[2017-05-02] MEDS: FINASTERIDE 5 MG TAB PO (20:19)
[2017-05-02] MEDS: TAMSULOSIN 0.4 MG CAP PO (20:20)
[2017-05-02 21:24] LABS: BEDSIDE GLUCOSE 267 MG/DL (83-110)
[2017-05-03] MEDS: IPRATROPIUM 0.5MG/ALBUTEROL 2.5MG INH SOL UD 3ML (DUONEB)(J7620) NEB ×2 (02:00→07:07)
[2017-05-03 06:55] LABS: HEMATOCRIT 35.9 % (42.0-52.0); HEMOGLOBIN 11.8 g/dl (14.0-18.0); MEAN CORPUSCULAR HEMOGLOBIN 29.4 pg (27.0-33.0); MEAN CORPUSCULAR HGB CONC 32.9 g/dl (32.0-36.5); MEAN CORPUSCULAR VOLUME 89.5 fl (80.0-96.0); PLATELET COUNT, AUTOMATED 279 10^3/uL (150-450); RED BLOOD COUNT 4.01 10^6/uL (4.30-6.10); RED CELL DISTRIBUTION WIDTH 13.2 % (11.5-14.5); WHITE BLOOD COUNT 8.9 10^3/uL (4.0-10.0)
[2017-05-03 07:06] LABS: ANION GAP 5 MEQ/L (8-16); BLOOD UREA NITROGEN 21 MG/DL (7-18); CALCIUM LEVEL 8.2 MG/DL (8.8-10.2); CARBON DIOXIDE LEVEL 33 MEQ/L (21-32); CHLORIDE LEVEL 100 MEQ/L (98-107); GLOMERULAR FILTRATION RATE > 60.0 (>35); GLUCOSE, FASTING 111 MG/DL (70-100); POTASSIUM SERUM 3.6 MEQ/L (3.5-5.1); SODIUM LEVEL 138 MEQ/L (136-145)
[2017-05-03] MEDS: HumaLOG INSULIN (NovoLOG) PER UNIT SC (07:08)
[2017-05-03] MEDS: ASPIRIN 81 MG ENTERIC TAB PO (08:41)
[2017-05-03] MEDS: OCUVITE 1 TAB PO (08:41)
[2017-05-03] MEDS: DOCUSATE SODIUM 100 MG CAP PO (08:41)
[2017-05-03] MEDS: CETIRIZINE (ZyrTEC) 10 MG TAB PO (08:41)
[2017-05-03] MEDS: DONEPEZIL 5 MG TAB PO (08:42)
[2017-05-03] MEDS: CARVedilol 3.125 MG TAB PO (08:42)
[2017-05-03] MEDS: COSOPT OCUMETER PLUS 10ML (DORZOLAMIDE/TIMOLOL) OU (08:42)
[2017-05-03] MEDS: MEMANTINE 5MG TABLET (NAMENDA) PO (08:42)
[2017-05-03] MEDS: HEPARIN SOD (PORCINE) 5000 UNITS/ML VIAL SC (08:42)
[2017-05-03] MEDS: FUROSEMIDE 40 MG TAB PO (08:42)
[2017-05-03] MEDS: SODIUM CHLORIDE 1 GM TAB PO (08:42)
[2017-05-03] MEDS: LATANOPROST 0.005% OPHTH SOLN 2.5 ML OU (08:43)
== END 2017-05-03 11:03 | DRG 312 ==
LOC: M ED 11:20 → M ED INP 14:54 → M MSPAV 16:25
DX: R55 Syncope and collapse (principal); J18.9 Pneumonia, unspecified organism; E22.2 Syndrome of inappropriate secretion of antidiuretic hormone; I10 Essential (primary) hypertension; E11.9 Type 2 diabetes mellitus without complications; N40.0 Benign prostatic hyperplasia without lower urinary tract symptoms; F03.90 Unspecified dementia, unspecified severity, without behavioral disturbance, psychotic disturbance, mood disturbance, and anxiety; G43.909 Migraine, unspecified, not intractable, without status migrainosus; E78.5 Hyperlipidemia, unspecified; F32.9 Major depressive disorder, single episode, unspecified; J30.9 Allergic rhinitis, unspecified; J44.9 Chronic obstructive pulmonary disease, unspecified; I71.4 Abdominal aortic aneurysm, without rupture; Z79.82 Long term (current) use of aspirin; Z79.899 Other long term (current) drug therapy; Z88.8 Allergy status to other drugs, medicaments and biological substances; Z87.891 Personal history of nicotine dependence; Z79.84 Long term (current) use of oral hypoglycemic drugs

== ENCOUNTER → 2017-08-21 | Outpatient (REF) | payer MEDICARE, OTHER ==
[2017-08-21 21:01] LABS: ESTIMATED AVERAGE GLUCOSE 163 MG/DL (60-110); HEMOGLOBIN A1c 7.3 %
[2017-08-21 21:06] LABS: ALBUMIN 3.4 GM/DL (3.2-5.2); ALBUMIN/GLOBULIN RATIO 0.92 (1.00-1.93); ALKALINE PHOSPHATASE 77 U/L (45-117); ALT/SGPT 21 U/L (12-78); ANION GAP 8 MEQ/L (8-16); AST/SGOT 14 U/L (7-37); BILIRUBIN,TOTAL 0.4 MG/DL (0.2-1.0); BLOOD UREA NITROGEN 23 MG/DL (7-18); CALCIUM LEVEL 8.4 MG/DL (8.8-10.2); CARBON DIOXIDE LEVEL 30 MEQ/L (21-32); CHLORIDE LEVEL 94 MEQ/L (98-107); CHOLESTEROL LEVEL 104 MG/DL (<200); CHOLESTEROL RISK RATIO 2.363 (<5); GLOMERULAR FILTRATION RATE > 60.0 (>35); GLUCOSE, FASTING 124 MG/DL (70-100); HDL CHOLESTEROL 44 MG/DL (>40); LDL CHOLESTEROL 36.6 MG/DL (<100); NON-HDL-C 60 MG/DL; POTASSIUM SERUM 4.8 MEQ/L (3.5-5.1); SODIUM LEVEL 132 MEQ/L (136-145); TOTAL PROTEIN 7.1 GM/DL (6.4-8.2); TRIGLYCERIDES LEVEL 117 MG/DL (<150)
[2017-08-21 21:16] LABS: CREATININE, URINE 85.2 MG/DL; MALB URINE SIEMENS 16.4 MG/L; MAU/CREAT RATIO 19.2 MCG/MG (0.0-30.0)
[2017-08-21 21:20] LABS: BASO # 0.1 10^3/uL (0.0-0.2); BASO % 0.6 % (0.0-1.0); EOS # 0.3 10^3/uL (0.0-0.50); EOS % 3.5 % (0.0-3.0); HEMOGLOBIN 12.3 g/dl (13.5-17.5); IMMATURE GRANULOCYTE % 0.5 % (0-3.0); LYMPH # 2.7 10^3/uL (1.5-4.5); MEAN CORPUSCULAR HEMOGLOBIN 29.5 pg (27.0-33.0); MEAN CORPUSCULAR HGB CONC 32.4 g/dl (32.0-36.5); MEAN CORPUSCULAR VOLUME 91.1 fl (80.0-96.0); MONO # 1.2 10^3/uL (0.0-0.8); MONO % 11.8 % (0.0-5.0); NEUTROPHILS # 5.4 10^3/uL (1.8-7.7); NEUTROPHILS % 55.6 % (36.0-66.0); PLATELET COUNT, AUTOMATED 220 10^3/uL (150-450); RED BLOOD COUNT 4.17 10^6/uL (4.30-6.10); RED CELL DISTRIBUTION WIDTH 14.2 % (11.5-14.5); WHITE BLOOD COUNT 9.7 10^3/uL (4.0-10.0)
== END ==
LOC: M SFHCLERA 15:13
DX: E11.9 Type 2 diabetes mellitus without complications (principal)
CPT/HCPCS: 84443

== ENCOUNTER → 2017-08-26 | Outpatient (REF) | payer MEDICARE, OTHER ==
[2017-08-26 19:14] LABS: CREATININE, URINE 80.4 MG/DL; MALB URINE SIEMENS 13.1 MG/L; MAU/CREAT RATIO 16.2 MCG/MG (0.0-30.0)
== END ==
LOC: M SFHCLERA 16:36
DX: E11.9 Type 2 diabetes mellitus without complications (principal)
CPT/HCPCS: 82043

== ENCOUNTER → 2017-10-22 | Outpatient (CLI) | payer MEDICARE, OTHER, MEDICAID | LOC: M RAD 10:50 | DX: I71.4 Abdominal aortic aneurysm, without rupture (principal) | CPT/HCPCS: 74176 ==

== ENCOUNTER 2017-11-18 12:25 | Emergency (ER) | payer MEDICARE, OTHER, MEDICAID ==
[2017-11-18 13:34] LABS: BASO # 0.1 10^3/uL (0.0-0.2); BASO % 0.6 % (0.0-1.0); EOS # 0.3 10^3/uL (0.0-0.50); HEMATOCRIT 40.1 % (42.0-52.0); HEMOGLOBIN 13.3 g/dl (13.5-17.5); IMMATURE GRANULOCYTE % 0.7 % (0-3.0); LYMPH # 2.5 10^3/uL (1.5-4.5); LYMPH % 19.9 % (24.0-44.0); MEAN CORPUSCULAR HEMOGLOBIN 29.6 pg (27.0-33.0); MEAN CORPUSCULAR HGB CONC 33.2 g/dl (32.0-36.5); MEAN CORPUSCULAR VOLUME 89.1 fl (80.0-96.0); MONO # 1.4 10^3/uL (0.0-0.8); MONO % 11.1 % (0.0-5.0); NEUTROPHILS # 8.4 10^3/uL (1.8-7.7); NEUTROPHILS % 65.7 % (36.0-66.0); PLATELET COUNT, AUTOMATED 216 10^3/uL (150-450); RED CELL DISTRIBUTION WIDTH 13.6 % (11.5-14.5); WHITE BLOOD COUNT 12.7 10^3/uL (4.0-10.0)
[2017-11-18 14:21] LABS: BLOOD UREA NITROGEN 20 MG/DL (7-18); CARBON DIOXIDE LEVEL 31 MEQ/L (21-32); CHLORIDE LEVEL 93 MEQ/L (98-107); CREATININE FOR GFR 1.12 MG/DL (0.70-1.30); GLOMERULAR FILTRATION RATE > 60.0 (>35); GLUCOSE, FASTING 140 MG/DL (70-100); POTASSIUM SERUM 5.1 MEQ/L (3.5-5.1); SODIUM LEVEL 130 MEQ/L (136-145)
[2017-11-18 14:22] LABS: ALT/SGPT 28 U/L (12-78); ANION GAP 6 MEQ/L (8-16); AST/SGOT 22 U/L (7-37); CALCIUM LEVEL 8.9 MG/DL (8.8-10.2); CPK CREATINE PHOSPHOKINASE 47 U/L (39-308)
[2017-11-18 14:23] LABS: ALBUMIN 3.5 GM/DL (3.2-5.2); ALKALINE PHOSPHATASE 76 U/L (45-117); BILIRUBIN,DIRECT 0.1 MG/DL (0.0-0.2); BILIRUBIN,TOTAL 0.5 MG/DL (0.2-1.0); CK-MB VALUE MASS 1.5 NG/ML (<3.6); MB/CK RELATIVE INDEX 0.03 (< OR =4); TOTAL PROTEIN 7.5 GM/DL (6.4-8.2)
[2017-11-18 14:24] LABS: ALBUMIN/GLOBULIN RATIO 0.88 (1.00-1.93); TROPONIN I < 0.02 NG/ML (< 0.10)
[2017-11-18 15:54] LABS: BEDSIDE GLUCOSE 136 MG/DL (83-110)
== END 2017-11-18 15:33 | disposition home or self-care (01) ==
LOC: M ED 12:25
DX: R56.9 Unspecified convulsions (principal)
CPT/HCPCS: 71045

== ENCOUNTER → 2018-01-28 | Outpatient (CLI) | payer MEDICARE, OTHER | LOC: M RAD 13:48 | DX: R33.9 Retention of urine, unspecified (principal) | CPT/HCPCS: 76857 ==

== ENCOUNTER → 2018-03-26 | Outpatient (REF) | payer MEDICARE, OTHER ==
[~2018-03-26] MED LIST: ALAW0.02 OU; AMLO2.5T3; AMLO2.5T3 PO; ASPI1TAB PO; ASPI81TA85 PO; BACITAB PO; BRIM0.2S13 OU; BRIM2OPD OU; BRIMONIDINE; CARV3.12; CARV3.12 PO; CENT1TAB20 PO; DIPR0.05 TOP; DOCU100C16 PO; DONEPEZIL; DONETAB6 PO; DORZ2SOL5 OU; DORZOLAMIDE-TIMOLOL; FINA5TAB2; FINA5TAB2 PO; FLOM0.4C39 PO; FURO40TA2; FURO40TA2 PO; GLIP5TAB20; LATA5OPD; LATA5OPD OU; MEMA1TAB2; NAME10TA PO; REFR0.5D8 OU; SIMV20TA2; TAMSULOSIN; TRAD5TAB; TRAD5TAB PO; ZOCO20TA PO; ZYRT10CA5 PO
[2018-03-26 21:05] LABS: HEMOGLOBIN A1c 7.5 %
== END ==
LOC: M SFHCLERA 15:18
PROVIDERS: ATTEND Family Medicine
DX: E11.9 Type 2 diabetes mellitus without complications (principal)

== ENCOUNTER → 2018-07-01 | Outpatient (REF) | payer MEDICARE, OTHER ==
[~2018-07-01] MED LIST changes: -ASPI1TAB PO; +ASPI81TA26 PO; +LATA0.0013; +LATA0.0013 OU; -LATA5OPD; -LATA5OPD OU
== END ==
LOC: M LAB REF 18:47
PROVIDERS: ATTEND Internal Medicine Nephrology
DX: N39.0 Urinary tract infection, site not specified (principal)

== ENCOUNTER → 2018-07-08 | Outpatient (REF) | payer MEDICARE, OTHER ==
[2018-07-08 13:04] LABS: BASO # 0.1 10^3/uL (0.0-0.2); BASO % 0.6 % (0.0-1.0); EOS # 0.3 10^3/uL (0.0-0.50); EOS % 3.1 % (0.0-3.0); HEMATOCRIT 40.7 % (42.0-52.0); LYMPH # 2.1 10^3/uL (1.5-4.5); LYMPH % 21.2 % (24.0-44.0); MEAN CORPUSCULAR HEMOGLOBIN 29.1 pg (27.0-33.0); MEAN CORPUSCULAR HGB CONC 31.9 g/dl (32.0-36.5); MEAN CORPUSCULAR VOLUME 91.1 fl (80.0-96.0); MONO # 1.3 10^3/uL (0.0-0.8); MONO % 12.9 % (0.0-5.0); NEUTROPHILS % 61.8 % (36.0-66.0); PLATELET COUNT, AUTOMATED 212 10^3/uL (150-450); RED BLOOD COUNT 4.47 10^6/uL (4.30-6.10); WHITE BLOOD COUNT 9.7 10^3/uL (4.0-10.0)
[2018-07-08 13:07] LABS: BLOOD UREA NITROGEN 21 MG/DL (7-18); CALCIUM LEVEL 8.1 MG/DL (8.8-10.2); CARBON DIOXIDE LEVEL 32 MEQ/L (21-32); CHLORIDE LEVEL 97 MEQ/L (98-107); GLOMERULAR FILTRATION RATE > 60.0 (>35); GLUCOSE, FASTING 214 MG/DL (70-100); POTASSIUM SERUM 4.3 MEQ/L (3.5-5.1); SODIUM LEVEL 134 MEQ/L (136-145)
[2018-07-08 14:10] LABS: HEMOGLOBIN A1c 7.6 %
== END ==
LOC: M SFHCLERA 09:58
PROVIDERS: ATTEND Family Medicine
DX: E11.9 Type 2 diabetes mellitus without complications (principal)
CPT/HCPCS: 80048; 83036; 85025; G0463

== ENCOUNTER → 2018-10-07 | Outpatient (REF) | payer MEDICARE, OTHER ==
[2018-10-07 17:09] LABS: BASO # 0.1 10^3/uL (0.0-0.2); BASO % 0.7 % (0.0-1.0); EOS # 0.3 10^3/uL (0.0-0.50); EOS % 2.6 % (0.0-3.0); HEMATOCRIT 41.1 % (42.0-52.0); LYMPH # 2.1 10^3/uL (1.5-4.5); LYMPH % 19.2 % (24.0-44.0); MEAN CORPUSCULAR HEMOGLOBIN 29.5 pg (27.0-33.0); MEAN CORPUSCULAR HGB CONC 31.6 g/dl (32.0-36.5); MEAN CORPUSCULAR VOLUME 93.4 fl (80.0-96.0); MONO # 1.3 10^3/uL (0.0-0.8); MONO % 11.9 % (0.0-5.0); PLATELET COUNT, AUTOMATED 210 10^3/uL (150-450); WHITE BLOOD COUNT 10.7 10^3/uL (4.0-10.0)
[2018-10-07 17:13] LABS: HEMOGLOBIN A1c 8.8 %
== END ==
LOC: M SFHCLERA 13:54
PROVIDERS: ATTEND Family Medicine
DX: E11.9 Type 2 diabetes mellitus without complications (principal); D63.8 Anemia in other chronic diseases classified elsewhere
CPT/HCPCS: 83036; 85025; G0463

== ENCOUNTER → 2019-01-06 | Outpatient (REF) | payer MEDICARE, OTHER ==
[2019-01-06 16:35] LABS: HEMATOCRIT 40.3 % (42.0-52.0); HEMOGLOBIN 12.8 g/dl (13.5-17.5)
[2019-01-06 16:56] LABS: BLOOD UREA NITROGEN 22 MG/DL (7-18); CALCIUM LEVEL 8.3 MG/DL (8.8-10.2); CARBON DIOXIDE LEVEL 32 MEQ/L (21-32); CHLORIDE LEVEL 97 MEQ/L (98-107); CREATININE FOR GFR 0.89 MG/DL (0.70-1.30); GLOMERULAR FILTRATION RATE > 60.0 (>35); GLUCOSE, FASTING 174 MG/DL (70-100); POTASSIUM SERUM 4.2 MEQ/L (3.5-5.1); SODIUM LEVEL 135 MEQ/L (136-145)
[2019-01-06 17:01] LABS: HEMOGLOBIN A1c 7.1 %
== END ==
LOC: M SFHCLERA 13:51
PROVIDERS: ATTEND Family Medicine
DX: E11.9 Type 2 diabetes mellitus without complications (principal); D63.8 Anemia in other chronic diseases classified elsewhere
CPT/HCPCS: 80048; 83036; 85014; 85018; 90682; G0008; G0463

== ENCOUNTER → 2019-02-26 | Outpatient (REF) | payer MEDICARE, OTHER ==
[~2019-02-26] MED LIST changes: +MEMA10TA19; -MEMA1TAB2; -SIMV20TA2; +SIMV20TA22
[2019-02-26 18:09] LABS: BASO # 0.1 10^3/uL (0.0-0.2); EOS # 0.4 10^3/uL (0.0-0.5); EOS % 3.8 % (0.0-3.0); HEMATOCRIT 40.7 % (42.0-52.0); HEMOGLOBIN 12.9 g/dl (13.5-17.5); LYMPH # 2.5 10^3/uL (1.5-5.0); LYMPH % 23.5 % (24.0-44.0); MEAN CORPUSCULAR HEMOGLOBIN 28.5 pg (27.0-33.0); MEAN CORPUSCULAR HGB CONC 31.7 g/dl (32.0-36.5); MONO # 1.4 10^3/uL (0.0-0.8); MONO % 13.3 % (0.0-5.0); NEUTROPHILS # 6.1 10^3/uL (1.5-8.5); NEUTROPHILS % 58.1 % (36.0-66.0); PLATELET COUNT, AUTOMATED 211 10^3/uL (150-450); RED BLOOD COUNT 4.52 10^6/uL (4.30-6.10); WHITE BLOOD COUNT 10.4 10^3/uL (4.0-10.0)
[2019-02-26 18:22] LABS: BLOOD UREA NITROGEN 26 MG/DL (7-18); CALCIUM LEVEL 8.5 MG/DL (8.8-10.2); CARBON DIOXIDE LEVEL 32 MEQ/L (21-32); CHLORIDE LEVEL 100 MEQ/L (98-107); CREATININE FOR GFR 0.88 MG/DL (0.70-1.30); FERRITIN 62 NG/ML (26-388); GLOMERULAR FILTRATION RATE > 60.0 (>35); GLUCOSE, FASTING 124 MG/DL (70-100); IRON (FE) 52 UG/DL (65-175); PERCENT SATURATION 19.8 % (19.7-50.0); POTASSIUM SERUM 4.2 MEQ/L (3.5-5.1); SODIUM LEVEL 138 MEQ/L (136-145); TOTAL IRON BINDING CAPACITY 262 UG/DL (250-450)
== END ==
LOC: M SFHCLERA 15:36
PROVIDERS: ATTEND Family Medicine
DX: K92.1 Melena (principal)
CPT/HCPCS: 80048; 82728; 83550; 85025; G0463

== ENCOUNTER → 2019-03-20 | Outpatient (REF) | payer MEDICARE, OTHER ==
[2019-03-20 13:19] LABS: HEMATOCRIT 38.5 % (42.0-52.0); HEMOGLOBIN 12.2 g/dl (13.5-17.5)
== END ==
LOC: SKLABADC 10:40
PROVIDERS: ATTEND Family Medicine
DX: N18.9 Chronic kidney disease, unspecified (principal); D63.8 Anemia in other chronic diseases classified elsewhere

== ENCOUNTER 2019-05-15 19:10 | Emergency (ER) | payer MEDICARE, OTHER ==
[~2019-05-15] VITALS: Ht 182.9 cm; Wt 81.8 kg
[2019-05-15 19:11] VITALS: BP 131/65
[2019-05-15 22:37] LABS: BASO # 0.1 10^3/uL (0.0-0.2); BASO % 0.7 % (0.0-1.0); EOS # 0.2 10^3/uL (0.0-0.5); EOS % 2.6 % (0.0-3.0); HEMATOCRIT 39.3 % (42.0-52.0); HEMOGLOBIN 12.6 g/dl (13.5-17.5); LYMPH # 2.4 10^3/uL (1.5-5.0); LYMPH % 26.7 % (24.0-44.0); MEAN CORPUSCULAR HEMOGLOBIN 28.5 pg (27.0-33.0); MEAN CORPUSCULAR HGB CONC 32.1 g/dl (32.0-36.5); MEAN CORPUSCULAR VOLUME 88.9 fl (80.0-96.0); MONO # 0.9 10^3/uL (0.0-0.8); MONO % 10.5 % (0.0-5.0); NEUTROPHILS # 5.3 10^3/uL (1.5-8.5); NEUTROPHILS % 59.2 % (36.0-66.0); PLATELET COUNT, AUTOMATED 192 10^3/uL (150-450); RED BLOOD COUNT 4.42 10^6/uL (4.30-6.10); WHITE BLOOD COUNT 8.9 10^3/uL (4.0-10.0)
[2019-05-15 23:08] LABS: BLOOD UREA NITROGEN 24 MG/DL (7-18); CALCIUM LEVEL 8.1 MG/DL (8.8-10.2); CARBON DIOXIDE LEVEL 31 MEQ/L (21-32); CHLORIDE LEVEL 103 MEQ/L (98-107); CK-MB VALUE MASS < 1.0 NG/ML (<3.6); CPK CREATINE PHOSPHOKINASE 40 U/L (39-308); CREATININE FOR GFR 0.79 MG/DL (0.70-1.30); GLOMERULAR FILTRATION RATE > 60.0 (>35); GLUCOSE, FASTING 133 MG/DL (70-100); POTASSIUM SERUM 4.2 MEQ/L (3.5-5.1); SODIUM LEVEL 139 MEQ/L (136-145); TROPONIN I < 0.02 NG/ML (< 0.10)
== END 2019-05-16 | disposition home or self-care (01) ==
LOC: M ED 19:10
DX: F03.90 Unspecified dementia, unspecified severity, without behavioral disturbance, psychotic disturbance, mood disturbance, and anxiety (principal); M79.89 Other specified soft tissue disorders; Z88.8 Allergy status to other drugs, medicaments and biological substances; Z79.899 Other long term (current) drug therapy; Z79.82 Long term (current) use of aspirin

== ENCOUNTER 2019-06-04 11:23 | Inpatient (IN) | payer MEDICARE, OTHER ==
[~2019-06-04] VITALS: Ht 188 cm; Wt 79.2 kg
[2019-06-04 11:52] LABS: BASO % 0.2 % (0.0-1.0); EOS # 0.2 10^3/uL (0.0-0.5); EOS % 1.2 % (0.0-3.0); HEMATOCRIT 42.1 % (42.0-52.0); HEMOGLOBIN 13.4 g/dl (13.5-17.5); LYMPH # 1.2 10^3/uL (1.5-5.0); LYMPH % 8.4 % (24.0-44.0); MEAN CORPUSCULAR HEMOGLOBIN 28.6 pg (27.0-33.0); MEAN CORPUSCULAR HGB CONC 31.8 g/dl (32.0-36.5); MONO # 0.9 10^3/uL (0.0-0.8); MONO % 6.2 % (0.0-5.0); NEUTROPHILS # 12.2 10^3/uL (1.5-8.5); NEUTROPHILS % 83.4 % (36.0-66.0); PLATELET COUNT, AUTOMATED 193 10^3/uL (150-450); RED BLOOD COUNT 4.68 10^6/uL (4.30-6.10); WHITE BLOOD COUNT 14.6 10^3/uL (4.0-10.0)
[2019-06-04 12:30] LABS: BLOOD UREA NITROGEN 29 MG/DL (7-18); CALCIUM LEVEL 8.6 MG/DL (8.8-10.2); CARBON DIOXIDE LEVEL 31 MEQ/L (21-32); CHLORIDE LEVEL 103 MEQ/L (98-107); CK-MB VALUE MASS < 1.0 NG/ML (<3.6); CPK CREATINE PHOSPHOKINASE 24 U/L (39-308); CREATININE FOR GFR 0.89 MG/DL (0.70-1.30); FREE T4 1.12 NG/DL (0.76-1.46); GLOMERULAR FILTRATION RATE > 60.0 (>35); GLUCOSE, FASTING 142 MG/DL (70-100); MAGNESIUM LEVEL 2.3 MG/DL (1.8-2.4); MB/CK RELATIVE INDEX 4.17 (< OR =4); POTASSIUM SERUM 4.3 MEQ/L (3.5-5.1); SODIUM LEVEL 137 MEQ/L (136-145); TROPONIN I < 0.02 NG/ML (< 0.10)
--- NOTE | 2019-06-04 12:40 | REP ---
CT BRAIN WITHOUT CONTRAST: HISTORY: Syncope. Comparison head CT study November 18, 2017. CT FINDINGS: Preliminary digital director of scout work radiograph is unremarkable. Bone window settings demonstrate an intact bony calvarium. Visualized paranasal sinuses remain clear. No intraorbital abnormality is seen. There is moderate vascular calcification in the distal carotid and to some degree distal vertebral arteries bilaterally. There is generalized volume loss. There is no evidence of intracranial hemorrhage. No infarct, extra-axial fluid collection, or midline shift is seen. IMPRESSION: Vascular calcification and generalized volume loss again noted. No acute intracranial abnormality. Electronically Signed by Darian Yusuf MD 06/04/2019 12:56 P
[2019-06-04] MEDS ORDERED: NS 250 ML IV ONE (14:00)
[2019-06-04] MEDS ORDERED: NS 1,000 ML IV SCH (14:45)
[2019-06-04] MEDS ORDERED: MOM 30ML SUSPENSION UDC PO PRN (16:15)
[2019-06-04] MEDS ORDERED: GLUCAGON FOR INJ 1 MG VIAL (J1610) SC PRN (16:15)
[2019-06-04] MEDS ORDERED: ACETAMINOPHEN TAB 650MG DOSE (2X325MG) PO PRN (16:15)
[2019-06-04] MEDS ORDERED: GLUCOSE 4 GM CHEW TABLET PO PRN (16:15)
[2019-06-04] MEDS ORDERED: MAALOX 30 ML SUSP *UDC PO PRN (16:15)
[2019-06-04] MEDS ORDERED: DEXTROSE 50% 50 ML SYRINGE IV PRN (16:15)
[2019-06-04] MEDS ORDERED: TIMOXEOPD OU (16:47)
[2019-06-04] MEDS ORDERED: DEPA250T2 PO (16:47)
[2019-06-04] MEDS ORDERED: GLIP2.5T6 PO (16:47)
[2019-06-04] MEDS ORDERED: SALI0.6530 NARES (16:47)
[2019-06-04] MEDS ORDERED: DONE10TA90 PO (16:47)
[2019-06-04] MEDS ORDERED: CENTTAB16 PO (16:47)
[2019-06-04] MEDS ORDERED: SODI1TAB6 PO (16:47)
[2019-06-04] MEDS ORDERED: HYDR5TAB PO (16:47)
[2019-06-04] MEDS ORDERED: XALA0.007 OU (16:47)
[2019-06-04] MEDS ORDERED: VITS42.53 TOP (16:47)
[2019-06-04] MEDS ORDERED: ALL10TAB29 PO (16:47)
--- NOTE | 2019-06-04 16:52 | HPEPDOC ---
[facility] Medical History & Physical Date of Admission Jun 04, 2019 Date of Service: Jun 04, 2019 Primary Care Physician: GEORGETTE NICHOLSON DO Attending Physician: MAXIMILIANO CASTILLO DO History and Physical CHIEF COMPLAINT: Syncope HISTORY OF PRESENT ILLNESS: Patient is an 83-year-old male who presents to the emergency department via EMS. Patient carries a past medical history significant for advanced dementia, CKD3, diabetes, hypertension, glaucoma, hyperlipidemia, seizures and AAA. Given patient's advanced dementia, the majority of the history and physical was obtained from patient's daughter, the ED provider in the medical record. Patient's daughter was contacted by patient's lifeline and an ambulance was sent to the patient's house. Upon their arrival, patient was found seated awake and alert on the toilet covered in excrement. Patient nor his were able to recall the events leading to EMS dispatch. Of note, patient does carry a history of seizures for which she was started on Depakote by Dr. Waterman approximately 2 years ago. He has not had any known seizures within that time period. Upon arrival to the emergency department, patient was found to be afebrile with a temperature of 96.3. Pulse of 63, respiratory rate of 16, BP of 152/71 and maintaining saturation of 95% on room air. Patient to demonstrate a mild leukocytosis of 14.6. BUN/CR of 29/0.89. Thyroid studies were within normal limits. Glucose of 128. Depakote level of 15.8. A head CT was performed and negative for any acute pathology. The ED provider attempted to discharge the patient home however, patient's family made it clear they unwilling to take him home in his current condition. Despite the providers continued advice against admission to decrease risk of nosocomial infection, since family was resilient. As such, hospice team was contacted for admission to the hospital for management of patient's suboptimal Depakote level and potential placement. PAST MEDICAL HISTORY: Diabetes mellitus type 2 Hypertension Dementia, advanced Glaucoma Hyperlipidemia AAA, 5.3 cm PAST SURGICAL HISTORY: Hernia repair Bilateral cataract Left neck cyst removal SOCIAL HISTORY: Marital status: Resides in: Alone home Children: 2 daughters and one son Employment: Retired Tobacco use: Lifelong nonsmoker ETOH: No recent alcohol use Illicit drug use: History of illicit drug use, including IV drug use or marijuana. Other relevant social factors: Advanced dementia, requires assistance with daily activities FAMILY HISTORY: Noncontributory given patient's advanced age ALLERGIES: Gustavo inhibitors, cough Amiloride, rash REVIEW OF SYSTEMS: Given patient's advanced dementia and inability for patient's accompanying daughter to provide any significant information, review of systems was unable to be fully collected. Respiratory: Patient denied cough or trouble breathing Cardiac: Patient denied any chest pain Abdomen: Patient denied any abdominal pain HOME MEDICATIONS: Please see below. PHYSICAL EXAMINATION: VITAL SIGNS: Please see belo GENERAL APPEARANCE: Examined in the emergency department. Patient's daughter was at bedside. Patient was found resting comfortably in emergency room bed. She was arousable. He was able to answer direct questions only, responding with yes or no. Did not appear to be in any acute distress. He was nontoxic appearing. HEENT: Cephalic, atraumatic, EOMI, no rhinorrhea or nasal congestion, no po sterior pharyngeal erythema or oral lesions. No lateral tongue lesions or lacerations. CARDIOVASCULAR: Regular rate and rhythm, no murmurs rubs or gallops. No peripheral edema. LUNGS: Clear to auscultation bilaterally without any wheezes rales or rhonchi. Fair air movement was symmetric chest rise ABDOMEN: Soft, nontender, nondistended. Bowel sounds present throughout. No masses. MUSCULOSKELETAL: No pain or discomfort with palpation of patient's neck shoulders back arms or legs. EXTREMITIES: Radial and posterior tibial pulses 2+ bilaterally. No lower extremity edema or calf tenderness appreciated. NEUROLOGICAL: Alert though not oriented to person place or time. PSYCHIATRIC: Blunted affect, deficit a fund of knowledge, patient is able to follow basic commands LABORATORY DATA: See below. IMAGING: Head CT (06/04/19): Vascular calcification and generalized volume loss again noted. No acute intracranial abnormality. ASSESSMENT: Patient is an 83-year-old gentleman who presented to the emergency department on 06/04/2019 after EMS was called to his home for what is suspected to be a syncopal episode. History of the events is unreliable as both patient and his have advanced dementia. Patient does carry a history of seizure and is treated with Depakote. His level was found to be low. He does not have any indication of acute infection. Patient's vital signs are stable. He was attempted to be discharged home with his family however, the ED provider did encounter significant pushback from his family. Patient will be admitted for optimization of his seizure medication and for PFS evaluation for potential placement. PLAN: #Syncope, possibly 2/2 to seizure, vasovagal, orthostatic hypotension * Valproic Acid level of 15.8 * Head CT negative for acute pathology * Troponins negative, NSR on EKG, Pt to be placed on tele * Orthostats negative following a 1 L fluid bolus in the emergency department #Seizure history * Unclear if patient has actually been compliant with his Depakote. * Given his low levels, we will increase patient's Depakote dose from 250 to 375mg. * Seizure precautions #Deconditioning * PT/OT consultation * Potential SNF placement * Fall precautions #NIDDMII * A1c of 7.1 on 12/27 * CC Diet * SSI #Advanced Dementia * Complicating care * Follows with Dr. Waterman * Continue home medications #hypertension * Continue home medications * Carvedilol, hydralazine, Lasix #CKDIII * BUN/Cr of 29/0.89 * Follows with nephrology #Hyperlipidemia * Continue with home simvastatin #AAA * 5.3 cm * Seen in consultation with vascular surgery * Observational management #BPH * Continue with home finasteride and tamsulosin DVT PROPHYLAXIS: Teds and Sequentials, POS iFOBT 02/26 DISPOSITION: Potential placement Vital Signs Vital Signs Date Time Temp Pulse Resp B/P (MAP) Pulse Ox O2 Delivery O2 Flow Rate FiO2 06/04/19 13:53 72 175/81 (112) 75 159/72 (101) 76 145/66 (92) 06/04/19 13:45 18 96 Room Air 06/04/19 11:38 96.3 Laboratory Data Labs 24H Laboratory Tests 2 06/04/19 11:41: Immature Granulocyte % (Auto) 0.6, Neutrophils (%) (Auto) 83.4H, Lymphocytes (%) (Auto) 8.4L, Monocytes (%) (Auto) 6.2H, Eosinophils (%) (Auto) 1.2, Basophils (%) (Auto) 0.2, Neutrophils # (Auto) 12.2H, Lymphocytes # (Auto) 1.2L, Monocytes # (Auto) 0.9H, Eosinophils # (Auto) 0.2, Basophils # (Auto) 0.0, Nucleated Red Blood Cells % (auto) 0.0, Anion Gap 3L, Glomerular Filtration Rate > 60.0, Calcium Level 8.6L, Magnesium Level 2.3, Total Creatine Kinase 24L, Creatine Kinase MB < 1.0, Creatine Kinase MB Relative Index 4.17H, Troponin I < 0.02, Thyroid Stimulating Hormone (TSH) 3.120, Free Thyroxine 1.12, Valproic Acid (Depakene) Level 15.8L 06/04/19 12:00: Bedside Glucose (Misc Panel) 128H CBC/BMP Laboratory Tests 06/04/19 11:41 Home Medications Scheduled Brimonidine Tartrate (Brimonidine Tartrate) 0.2 % Betty, 1 DROP OU TID Carvedilol (Carvedilol) 3.125 Mg Tab, 3.125 MG PO BID Cetirizine HCl (Cetirizine HCl) 10 Mg Tablet, 10 MG PO QHS Divalproex Sodium (Depakote ER) 250 Mg Tab.er.24h, 250 MG PO QHS Docusate Sodium (Docusate Sodium) 100 Mg Cap, 100 MG PO BID Donepezil HCl (Donepezil HCl) 10 Mg Tablet, 10 MG PO QHS Finasteride (Finasteride) 5 Mg Tab, 5 MG PO QHS Furosemide (Furosemide) 40 Mg Tab, 40 MG PO DAILY Glipizide (Glipizide ER) 2.5 Mg Tab.er.24, 2.5 MG PO DAILY Hydralazine HCl (Hydralazine HCl) 10 Mg Tablet, 10 MG PO BID Ketotifen Fumarate (Alaway) 0.025 % [place]our, 1 DROP OU BID L.acidoph/L.bulg/B.bif/S.therm (Bacid Caplet) 1 Tab Tab, 1 TAB PO QHS Latanoprost (Xalatan) 0.005% 2.5ML Drops, 1 DROP OU QHS Linagliptin (Tradjenta) 5 Mg Tab, 5 MG PO QHS Memantine HCl (Namenda) 10 Mg Tab, 10 MG PO BID Multivit-Min/FA/Lycopen/Lutein (Centrum Silver Ultra Men's Tab) 1 Each Tablet, 1 TAB PO DAILY Simvastatin (Zocor) 20 Mg Tab, 20 MG PO QHS Sodium Chloride (Sodium Chloride) 1 Gm Tablet, 1 GM PO DAILY Tamsulosin HCl (Flomax) 0.4 Mg Cap, 0.4 MG PO QHS Timolol Maleate (Timolol Maleate) 0.25% Betty.gel, 1 DROP OU DAILY Vits A and D/White Pet/Lanolin (A and D Ointment) 42.5 Gm Oint...g., 1 APLCT TOP QID APPLIES TO BUTTOCKS Scheduled PRN Sodium Chloride (Saline Nasal [place]) 88 Ml [place], 1 SPRAY NARES QID PRN for NASAL CONGESTION Allergies Coded Allergies: SEASONAL ALLERGIES (Verified Allergy, Unknown, 06/04/19) GUSTAVO Inhibitors (Verified Adverse Reaction, Unknown, "sick", 05/15/19) A-FIB/CHADSVASC A-FIB History Current/History of A-Fib/PAF?: No WEI SWAIN DO Jun 04, 2019 16:52
[2019-06-04] MEDS ORDERED: SODIUM CHLORIDE NASAL 0.65% SPRAY BTL (OCEAN) PRN (17:00)
[2019-06-04] MEDS: HumaLOG INSULIN (NovoLOG) PER UNIT SC SCH (17:49)
[2019-06-04 18:05] VITALS: BP 168/66
[2019-06-04] MEDS ORDERED: LATANOPROST 0.005% OPHTH SOLN 2.5 ML OU SCH (21:00)
[2019-06-04] MEDS ORDERED: SIMVASTATIN 20 MG TAB PO SCH (21:00)
[2019-06-04] MEDS ORDERED: FINASTERIDE 5 MG TAB PO SCH (21:00)
[2019-06-04] MEDS ORDERED: DIVALPROEX 250MG *ER* TAB PO SCH (21:00)
[2019-06-04] MEDS: CARVedilol 3.125 MG TAB PO SCH (21:00)
[2019-06-04] MEDS ORDERED: LACTOBACILLUS ACIDOPHILUS CAP (BACID) PO SCH (21:00)
[2019-06-04] MEDS ORDERED: TAMSULOSIN 0.4 MG CAP PO SCH (21:00)
[2019-06-04] MEDS ORDERED: HumaLOG INSULIN (NovoLOG) PER UNIT SC SCH (21:00)
[2019-06-04] MEDS: **hydrALAZINE** 10 MG TAB PO SCH (21:00)
[2019-06-04] MEDS: DOCUSATE SODIUM 100 MG CAP PO SCH (21:00)
[2019-06-04] MEDS: MEMANTINE 5MG TABLET (NAMENDA) PO SCH (21:00)
[2019-06-04] MEDS ORDERED: DIVALPROEX 125 MG TAB PO SCH (21:00)
[2019-06-04 22:00] VITALS: BP 132/65
[2019-06-05 05:57] LABS: HEMATOCRIT 42.4 % (42.0-52.0); HEMOGLOBIN 13.6 g/dl (13.5-17.5); MEAN CORPUSCULAR HEMOGLOBIN 28.7 pg (27.0-33.0); MEAN CORPUSCULAR HGB CONC 32.1 g/dl (32.0-36.5); MEAN CORPUSCULAR VOLUME 89.5 fl (80.0-96.0); PLATELET COUNT, AUTOMATED 196 10^3/uL (150-450); RED BLOOD COUNT 4.74 10^6/uL (4.30-6.10); WHITE BLOOD COUNT 9.8 10^3/uL (4.0-10.0)
[2019-06-05 06:00] VITALS: BP 144/59
[2019-06-05 06:17] LABS: BLOOD UREA NITROGEN 24 MG/DL (7-18); CALCIUM LEVEL 8.3 MG/DL (8.8-10.2); CARBON DIOXIDE LEVEL 31 MEQ/L (21-32); CHLORIDE LEVEL 105 MEQ/L (98-107); GLOMERULAR FILTRATION RATE > 60.0 (>35); GLUCOSE, FASTING 148 MG/DL (70-100); POTASSIUM SERUM 3.8 MEQ/L (3.5-5.1); SODIUM LEVEL 139 MEQ/L (136-145)
[2019-06-05] MEDS: HumaLOG INSULIN (NovoLOG) PER UNIT SC SCH ×2 (08:36→12:51)
[2019-06-05] MEDS: **hydrALAZINE** 10 MG TAB PO SCH (08:37)
[2019-06-05] MEDS: DOCUSATE SODIUM 100 MG CAP PO SCH (08:37)
[2019-06-05] MEDS: MEMANTINE 5MG TABLET (NAMENDA) PO SCH (08:37)
[2019-06-05 08:38] VITALS: BP 145/66
[2019-06-05] MEDS: CARVedilol 3.125 MG TAB PO SCH (08:38)
[2019-06-05] MEDS ORDERED: MULTIVITAMINS/MINERALS THERAP 1 TAB PO SCH (09:00)
[2019-06-05] MEDS ORDERED: FUROSEMIDE 40 MG TAB PO SCH (09:00)
--- NOTE | 2019-06-05 11:57 | IPNPDOC ---
Text Note Date of Service The patient was seen on 06/05/19. NOTE SUBJECTIVE: Pt was interviewed and examined in his room. No events overnight. He denies and chest pain, SOB or trouble or breathing. He is eating and drinking without any difficulty. OBJECTIVE: PHYSICAL EXAMINATION: VITAL SIGNS: Please see below GENERAL APPEARANCE: Examined on 4 PAV. Found to be seated in bedside chair eating breakfast. He did not appear to be in any distress. He was non-toxic in appearance. He was awake and alert. Able to answer yes and no questions. HEENT: Cephalic, atraumatic, EOMI, no rhinorrhea or nasal congestion, no posterior pharyngeal erythema or oral lesions. CARDIOVASCULAR: Regular rate and rhythm, no murmurs rubs or gallops. LUNGS: Clear to auscultation bilaterally without any wheezes rales or rhonchi. Fair air movement was symmetric chest rise ABDOMEN: Soft, nontender, nondistended. Bowel sounds present throughout. No masses. MUSCULOSKELETAL: No pain or discomfort with palpation of patient's neck shoulders back arms or legs. EXTREMITIES: Radial and posterior tibial pulses 2+ bilaterally. No lower extremity edema or calf tenderness appreciated. NEUROLOGICAL: Alert though not oriented to person place or time. PSYCHIATRIC: Blunted affect, deficit a fund of knowledge, patient is able to f ollow basic commands LABORATORY DATA: See below. IMAGING: Head CT (06/04/19): Vascular calcification and generalized volume loss again noted. No acute intracranial abnormality. ASSESSMENT: Patient is an 83-year-old gentleman who presented to the emergency department on 06/04/2019 after EMS was called to his home for what is suspected to be a syncopal episode. History of the events is unreliable as both patient and his have advanced dementia. Patient does carry a history of seizure and is treated with Depakote. His level was found to be low. He does not have any indication of acute infection. Patient's vital signs are stable. He was attempted to be discharged home with his family however, the ED provider did encounter significant pushback from his family. Patient will be admitted for optimization of his seizure medication and for PFS evaluation for potential placement. PLAN: #Syncope, possibly 2/2 to seizure, vasovagal, orthostatic hypotension * Valproic Acid level of 15.8 * Head CT negative for acute pathology * Troponins negative, NSR on EKG. No tele events overnight. * Orthostats negative #Seizure history * Unclear if patient has actually been compliant with his Depakote. * Given his low levels, we increased patient's Depakote dose from 250 to 375mg. * Seizure precautions #Deconditioning * PT/OT consultation * Potential SNF placement * Fall precautions #NIDDMII * A1c of 7.1 on 12/27 * CC Diet * SSI #Advanced Dementia * Complicating care * Follows with Dr. Waterman * Continue home medications #hypertension * Continue home medications * Carvedilol, hydralazine, Lasix #CKDIII * BUN/Cr of 29/0.89 * Follows with nephrology #Hyperlipidemia * Continue with home simvastatin #AAA * 5.3 cm * Seen in consultation with vascular surgery * Observational management #BPH * Continue with home finasteride and tamsulosin DVT PROPHYLAXIS: Teds and Sequentials, POS iFOBT 02/26 DISPOSITION: Potential placement VS,Fishbone, I+O VS, Fishbone, I+O Laboratory Tests 06/05/19 05:27 Vital Signs Date Time Temp Pulse Resp B/P (MAP) Pulse Ox O2 Delivery O2 Flow Rate FiO2 06/05/19 08:38 78 145/66 06/05/19 06:00 98.4 18 95 Room Air I&O- Last 24 Hours up to 6 AM 06/05/19 06:00 Intake Total 490 ml Output Total 200 ml Balance 290 ml WEI SWAIN DO Jun 05, 2019 11:57
[2019-06-05 14:00] VITALS: BP 137/63
--- NOTE | 2019-06-05 16:16 | DS.PDOC ---
Discharge Summary General Date of Admission Jun 04, 2019 at 16:12 Date of Discharge 06/05/2019 Primary Care Physician: GEORGETTE NICHOLSON DO Attending Physician: MAXIMILIANO CASTILLO DO Discharge Summary PROCEDURES PERFORMED DURING STAY: ADMITTING DIAGNOSES: Syncope, secondary to seizure, vasovagal, orthostatic hypotension Seizure history Deconditioning NIDDMII Advanced dementia Hypertension CKD3 Hyperlipidemia AAA BPH DISCHARGE DIAGNOSES: Syncope, secondary to seizure Seizure history Deconditioning NIDDMII Advanced dementia Hypertension CKD3 Hyperlipidemia AAA BPH COMPLICATIONS/CHIEF COMPLAINT: Syncope. HISTORY OF PRESENT ILLNESS: Patient is an 83-year-old male who presents to the emergency department via EMS. Patient carries a past medical history significant for advanced dementia, CKD3, diabetes, hypertension, glaucoma, hyperlipidemia, seizures and AAA. Given patient's advanced dementia, the majority of the history and physical was obtained from patient's daughter, the ED provider and the medical record. Patient's daughter was contacted by patient's lifeline and an ambulance was sent to the patient's home. Upon their arrival, patient was found seated, awake and alert on the toilet covered in excrement. Patient nor his were able to recall the events leading to EMS dispatch. Of note, patient does carry a history of seizures for which she was started on Depakote by Dr. Waterman approximately 2 years ago. He has not had any known seizures within that time period. Upon arrival to the emergency department, patient was found to be afebrile with a temperature of 96.3. Pulse of 63, respiratory rate of 16, BP of 152/71 and maintaining saturation of 95% on room air. Patient to demonstrate a mild leukocytosis of 14.6. BUN/CR of 29/0.89. Thyroid studies were within normal limits. Glucose of 128. Depakote level of 15.8. A head CT was performed and negative for any acute pathology. The ED provider attempted to discharge the patient home however, patient's family made it clear they unwilling to take him home in his current condition. Despite the providers continued advice against admission to decrease risk of nosocomial infection, since family was resilient. As such, hospice team was contacted for admission to the hospital for management of patient's suboptimal Depakote level and potential placement. HOSPITAL COURSE: Patient was admitted to the hospital for overnight observation with telemetry monitoring. No events noted overnight. Patient's mental status remained unchanged. PFS consult for potential placement. Kelly from [facility] discussed care with patient's states that she is able to assist him at home. does provide some degree of supervision and patient does have health aides multiple times per week. On the day of discharge, patient was interviewed and examined and found to be at his baseline status. Given that he does not carry any acute medical condition that requires hospitalization, patient will be discharged home with self care and asked to follow-up with neurology regarding his depakote level. We will not increase his depakote level at this time, as we suspect his reason for sub-therapeutic levels is related to less-than perfect for compliance. DISCHARGE MEDICATIONS: Please see below. ALLERGIES: Please see below. PHYSICAL EXAMINATION ON DISCHARGE: VITAL SIGNS: Please see below. GENERAL APPEARANCE: Examined in the emergency department. Patient's daughter was at bedside. Patient was found resting comfortably in emergency room bed. She was arousable. He was able to answer direct questions only, responding with yes or no. Did not appear to be in any acute distress. He was nontoxic appearing. HEENT: Cephalic, atraumatic, EOMI, no rhinorrhea or nasal congestion, no posterior pharyngeal erythema or oral lesions. No lateral tongue lesions or lacerations. CARDIOVASCULAR: Regular rate and rhythm, no murmurs rubs or gallops. No peripheral edema. LUNGS: Clear to auscultation bilaterally without any wheezes rales or rhonchi. Fair air movement was symmetric chest rise ABDOMEN: Soft, nontender, nondistended. Bowel sounds present throughout. No masses. MUSCULOSKELETAL: No pain or discomfort with palpation of patient's neck shoulders back arms or legs. EXTREMITIES: Radial and posterior tibial pulses 2+ bilaterally. No lower extremity edema or calf tenderness appreciated. NEUROLOGICAL: Alert though not oriented to person place or time. PSYCHIATRIC: Blunted affect, deficit a fund of knowledge, patient is able to follow basic commands LABORATORY DATA: Please see below. IMAGING: Head CT (06/04/19): Vascular calcification and generalized volume loss again noted. No acute intracranial abnormality. PROGNOSIS: Fair ACTIVITY: As tolerated DIET: Diabetic Diet DISCHARGE PLAN: Home with home health ITEMS TO FOLLOWUP ON ON OUTPATIENT: Follow-up with PCP in 1 week Follow-up with Neuro in 1 week Please take medications as prescribed. DISCHARGE CONDITION: Stable TIME SPENT ON DISCHARGE: Greater than 25 minutes. Vital Signs/I&Os Vital Signs Date Time Temp Pulse Resp B/P (MAP) Pulse Ox O2 Delivery O2 Flow Rate FiO2 06/05/19 14:00 97.6 68 17 137/63 (87) 96 Room Air I&O- Last 24 Hours up to 6 AM 06/05/19 06:00 Intake Total 490 ml Output Total 200 ml Balance 290 ml Laboratory Data Labs 24H Laboratory Tests 2 06/04/19 17:22: Bedside Glucose (Misc Panel) 146H 06/04/19 20:42: Bedside Glucose (Misc Panel) 173H 06/05/19 05:27: Nucleated Red Blood Cells % (auto) 0.0, Anion Gap 3L, Glomerular Filtration Rate > 60.0, Calcium Level 8.3L 06/05/19 11:50: Bedside Glucose (Misc Panel) 160H CBC/BMP Laboratory Tests 06/05/19 05:27 FSBS Laboratory Tests Test 06/04/19 17:22 06/04/19 20:42 06/05/19 11:50 Range/Units Bedside Glucose (Misc Panel) 146 173 160 83-110 MG/DL Discharge Medications Scheduled Brimonidine Tartrate (Brimonidine Tartrate) 0.2 % Betty, 1 DROP OU TID, (Reported) Carvedilol (Carvedilol) 3.125 Mg Tab, 3.125 MG PO BID, (Reported) Cetirizine HCl (Cetirizine HCl) 10 Mg Tablet, 10 MG PO QHS, (Reported) Divalproex Sodium (Depakote ER) 250 Mg Tab.er.24h, 250 MG PO QHS, (Reported) Docusate Sodium (Docusate Sodium) 100 Mg Cap, 100 MG PO BID, (Reported) Donepezil HCl (Donepezil HCl) 10 Mg Tablet, 10 MG PO QHS, (Reported) Finasteride (Finasteride) 5 Mg Tab, 5 MG PO QHS, (Reported) Furosemide (Furosemide) 40 Mg Tab, 40 MG PO DAILY, (Reported) Glipizide (Glipizide ER) 2.5 Mg Tab.er.24, 2.5 MG PO DAILY, (Reported) Hydralazine HCl (Hydralazine HCl) 10 Mg Tablet, 10 MG PO BID, (Reported) Ketotifen Fumarate (Alaway) 0.025 % [place], 1 DROP OU BID, (Reported) L.acidoph/L.bulg/B.bif/S.therm (Bacid Caplet) 1 Tab Tab, 1 TAB PO QHS, (Reported) Latanoprost (Xalatan) 0.005% 2.5ML Drops, 1 DROP OU QHS, (Reported) Linagliptin (Tradjenta) 5 Mg Tab, 5 MG PO QHS, (Reported) Memantine HCl (Namenda) 10 Mg Tab, 10 MG PO BID, (Reported) Multivit-Min/FA/Lycopen/Lutein (Centrum Silver Ultra Men's Tab) 1 Each Tablet, 1 TAB PO DAILY, (Reported) Simvastatin (Zocor) 20 Mg Tab, 20 MG PO QHS, (Reported) Sodium Chloride (Sodium Chloride) 1 Gm Tablet, 1 GM PO DAILY, (Reported) Tamsulosin HCl (Flomax) 0.4 Mg Cap, 0.4 MG PO QHS, (Reported) Timolol Maleate (Timolol Maleate) 0.25% Betty.gel, 1 DROP OU DAILY, (Reported) Vits A and D/White Pet/Lanolin (A and D Ointment) 42.5 Gm Oint...g., 1 APLCT TOP QID, (Reported) APPLIES TO BUTTOCKS Scheduled PRN Sodium Chloride (Saline Nasal [place]) 88 Ml [place], 1 SPRAY NARES QID PRN for NASAL CONGESTION, (Reported) Allergies Coded Allergies: SEASONAL ALLERGIES (Verified Allergy, Unknown, 06/04/19) EDUARDO Inhibitors (Verified Adverse Reaction, Unknown, "sick", 05/15/19) WEI SWAIN DO Jun 05, 2019 16:16
--- NOTE | 2019-06-06 08:31 | ECGEPIP ---
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
== END 2019-06-05 16:30 | disposition home health service (06) | DRG 101 ==
LOC: EDBD 11:23 → M ED 11:23 → M ED INP 16:12 → ENRESERVTM 16:36 → ENRESERVDT 16:36 → M MSPAV 18:05
PROVIDERS: ADMIT Internal Medicine; ATTEND Internal Medicine
DX: R56.9 Unspecified convulsions (principal); F03.90 Unspecified dementia, unspecified severity, without behavioral disturbance, psychotic disturbance, mood disturbance, and anxiety; N18.3 Chronic kidney disease, stage 3 (moderate); E11.22 Type 2 diabetes mellitus with diabetic chronic kidney disease; I12.9 Hypertensive chronic kidney disease with stage 1 through stage 4 chronic kidney disease, or unspecified chronic kidney disease; H40.9 Unspecified glaucoma; J30.2 Other seasonal allergic rhinitis; E78.5 Hyperlipidemia, unspecified; R55 Syncope and collapse; N40.0 Benign prostatic hyperplasia without lower urinary tract symptoms; I71.4 Abdominal aortic aneurysm, without rupture; Z98.41 Cataract extraction status, right eye; Z98.42 Cataract extraction status, left eye; Z79.84 Long term (current) use of oral hypoglycemic drugs; Z79.899 Other long term (current) drug therapy; Z91.14 Patient's other noncompliance with medication regimen

== ENCOUNTER → 2019-07-08 | Outpatient (REF) | payer MEDICARE, OTHER ==
[~2019-07-08] MED LIST changes: -ASPI81TA85 PO; +ASPI81TA86 PO; +CENTTAB16 PO; +CETI-24 PO; +DEPA250T2 PO; +DIVA500T9 PO; +DONE10TA90 PO; +GLIP2.5T6 PO; +HYDR5TAB PO; +LEVO250T12 PO; +PROP15DR12 OU; +SALI0.6530 NARES; +SODI1TAB6 PO; +TIMOXEOPD OU; +VITS42.53 TOP; +XALA0.007 OU
[2019-07-08 16:37] LABS: BASO # 0.1 10^3/uL (0.0-0.2); BASO % 0.6 % (0.0-1.0); EOS # 0.3 10^3/uL (0.0-0.5); EOS % 3.1 % (0.0-3.0); HEMATOCRIT 42.7 % (42.0-52.0); HEMOGLOBIN 13.5 g/dl (13.5-17.5); LYMPH # 2.9 10^3/uL (1.5-5.0); LYMPH % 26.5 % (24.0-44.0); MEAN CORPUSCULAR HEMOGLOBIN 28.3 pg (27.0-33.0); MEAN CORPUSCULAR HGB CONC 31.6 g/dl (32.0-36.5); MEAN CORPUSCULAR VOLUME 89.5 fl (80.0-96.0); MONO # 1.5 10^3/uL (0.0-0.8); NEUTROPHILS % 55.2 % (36.0-66.0); PLATELET COUNT, AUTOMATED 203 10^3/uL (150-450); RED BLOOD COUNT 4.77 10^6/uL (4.30-6.10); WHITE BLOOD COUNT 10.8 10^3/uL (4.0-10.0)
[2019-07-08 16:48] LABS: BLOOD UREA NITROGEN 23 MG/DL (7-18); CALCIUM LEVEL 8.8 MG/DL (8.8-10.2); CARBON DIOXIDE LEVEL 30 MEQ/L (21-32); CHLORIDE LEVEL 99 MEQ/L (98-107); CHOLESTEROL LEVEL 105 MG/DL (<200); CREATININE FOR GFR 0.77 MG/DL (0.70-1.30); GLOMERULAR FILTRATION RATE > 60.0 (>35); GLUCOSE, FASTING 103 MG/DL (70-100); HDL CHOLESTEROL 35 MG/DL (>40); LDL CHOLESTEROL 55 MG/DL (<100); NON-HDL-C 70 MG/DL; POTASSIUM SERUM 3.9 MEQ/L (3.5-5.1); SODIUM LEVEL 136 MEQ/L (136-145); TRIGLYCERIDES LEVEL 73 MG/DL (<150)
[2019-07-08 17:29] LABS: HEMOGLOBIN A1c 6.7 %
== END ==
LOC: M SFHCLERA 12:22
PROVIDERS: ATTEND Family Medicine
DX: E11.9 Type 2 diabetes mellitus without complications (principal)
CPT/HCPCS: 80048; 80061; 83036; 85025; G0463

== ENCOUNTER → 2019-07-09 | Outpatient (REF) | payer MEDICARE, OTHER ==
[~2019-07-09] MED LIST changes: +ALL10TAB29 PO; +ASPI81TA85 PO; -ASPI81TA86 PO; -CETI-24 PO; -DIVA500T9 PO; -LEVO250T12 PO; -PROP15DR12 OU
[2019-07-09 16:56] LABS: MAU/CREAT RATIO 114.9 MCG/MG (0.0-30.0)
== END ==
LOC: M SFHCLERA 16:00
PROVIDERS: ATTEND Family Medicine
DX: E11.9 Type 2 diabetes mellitus without complications (principal)

== ENCOUNTER → 2019-10-29 | Outpatient (REF) | payer MEDICARE, OTHER ==
[~2019-10-29] MED LIST changes: -ALL10TAB29 PO; -ASPI81TA85 PO; +ASPI81TA86 PO; +CETI-24 PO
== END ==
LOC: M LAB REF 17:07
PROVIDERS: ATTEND Nurse Practitioner Family
DX: N39.0 Urinary tract infection, site not specified (principal)

== ENCOUNTER → 2020-03-22 | Outpatient (CLI) | payer MEDICARE, OTHER ==
[2020-03-22 18:13] LABS: BASO # 0.1 10^3/uL (0.0-0.2); BASO % 0.7 % (0.0-1.0); EOS # 0.2 10^3/uL (0.0-0.5); HEMOGLOBIN 11.4 g/dl (13.5-17.5); LYMPH # 1.8 10^3/uL (1.5-5.0); LYMPH % 20.8 % (24.0-44.0); MEAN CORPUSCULAR HEMOGLOBIN 26.8 pg (27.0-33.0); MEAN CORPUSCULAR HGB CONC 30.8 g/dl (32.0-36.5); MEAN CORPUSCULAR VOLUME 86.9 fl (80.0-96.0); MONO # 1.2 10^3/uL (0.0-0.8); MONO % 13.8 % (0.0-5.0); NEUTROPHILS # 5.2 10^3/uL (1.5-8.5); NEUTROPHILS % 61.9 % (36.0-66.0); PLATELET COUNT, AUTOMATED 245 10^3/uL (150-450); RED BLOOD COUNT 4.26 10^6/uL (4.30-6.10); WHITE BLOOD COUNT 8.5 10^3/uL (4.0-10.0)
[2020-03-22 18:44] LABS: HEMOGLOBIN A1c 8.4 %
[2020-03-22 18:48] LABS: ALT/SGPT 17 U/L (12-78); BLOOD UREA NITROGEN 22 MG/DL (7-18); CALCIUM LEVEL 8.7 MG/DL (8.8-10.2); CARBON DIOXIDE LEVEL 29 MEQ/L (21-32); CHLORIDE LEVEL 101 MEQ/L (98-107); CREATININE FOR GFR 0.82 MG/DL (0.70-1.30); GLOMERULAR FILTRATION RATE > 60.0 (>35); GLUCOSE, FASTING 258 MG/DL (70-100); SODIUM LEVEL 138 MEQ/L (136-145)
[2020-03-22 18:49] LABS: ALBUMIN 2.6 GM/DL (3.2-5.2); BILIRUBIN,TOTAL 0.5 MG/DL (0.2-1.0); CHOLESTEROL LEVEL 112 MG/DL (<200); CHOLESTEROL RISK RATIO 2.871 (<5); HDL CHOLESTEROL 39 MG/DL (>40); LDL CHOLESTEROL 58 MG/DL (<100); NON-HDL-C 73 MG/DL; TOTAL PROTEIN 7.2 GM/DL (6.4-8.2); TRIGLYCERIDES LEVEL 74 MG/DL (<150)
== END ==
LOC: M LAB 17:41
PROVIDERS: ATTEND Family Medicine
DX: E11.9 Type 2 diabetes mellitus without complications (principal); R19.5 Other fecal abnormalities

== ENCOUNTER 2020-03-24 12:22 | Inpatient (IN) | payer MEDICARE, OTHER ==
[~2020-03-24] VITALS: Ht 185.4 cm; Wt 72.7 kg
[2020-03-24] MEDS ORDERED: LIDOCAINE 2% 5ML JELLY UROJET TOP ONE (13:00)
--- OUTSIDE RECORDS SUMMARY | 2020-03-24 13:06 | CCD ---
Author Author [facility] Organization [facility] Address Unknown Phone Unavailable Care Team Providers Care Shagger Name Role Phone Vipin Torres Unavailable PROBLEMS Type Condition ICD9-CM Code [id number] Code Onset Dates Condition S tatus SNOMED Code Notes Problem Glaucoma, unspecified glaucoma type, unspecified lateralit y H40.9 Active 84440603 Problem Abdominal aortic aneurysm (AAA) without rupture I7 1.4 Active 20818856 Problem Type 2 diabetes mellitus wit hout complication, without long-term current use of insulin E11.9 Active 445655918 Problem Dyslipidemia E78.5 Active 125762484 Problem Hypertension, unspecified type I10 Active 3 5778714 Problem Constipation, unspecified constipation type K59.00 Active 89832327 Problem Seizure R56.9 Active 31118618 Problem Hyperlipidemia, unspecified hyperlipidemia type E7 8.5 Active 73880146 Problem Dementia without behavioral disturbance, unspeci fied dementia type F03.90 Active 15221023 Problem Anemia, chronic disease D63.8 Active 01560215 6 Problem Iron deficiency anemia, unspecified iron deficiency an emia type D50.9 Active 12407445 ALLERGIES Allergen (clinical drug ingredient) Drug/Non Drug Allergy do cumented on EMR Reaction Allergy Type Onset Date Status amiloride Amiloride HCl([facility] Code:[address]-88) Rash Drug Jimmy rgy Active Gustavo inhibitor (for allergies use only) cough Drug All ergy Active ENCOUNTERS from 1933 to 2020-01-14 Encounter Location Date Provider Diagnosis [facility] [address] [place] [address] Dec, 2019 Vipin Torres Dementia without behavioral disturbance, unspecified dementia type F03.90 ; Encounter for immunization Z23 ; Type 2 diabetes mellitus without complication, without long-term current use of insulin E11.9 ; Hypertension, unspecified type I10 and Constipation, unspecified constipation type K59.00 IMMUNIZATIONS Vaccine Route Administration Date Status Influenza (18 yrs & older) Flublok IM Intramuscular Dec 22, 2019 Administered Influenza (18 yrs & older) Flublok IM Intramuscular Jan 06, 2019 Administered Influenza (6mo & up) Fluzone IM Intramuscular Dec 24, 2017 Ad ministered SOCIAL HISTORY Tobacco Use: Social History Observation Description Date Details (start date - stop date) Never Smoker Sex Assigned At : Social History Observation Description Sex Assigned At Unknown Education: Question Answer Notes Level of Education: High School Audit Question Answer Notes Total Score: 0 Interpretation: Alcohol Education Language: Question Answer Notes Languages spoken: Hungarian Adventism: Question Answer Notes Adventism 03 Mandaeism Sexual Hx: Question Answer Notes Had sex in the last 12 months (vaginal, oral, or anal)? No Have you ever had an STD? No Drug and Alcohol Question Answer Notes Total Score: 0 Interpretation: No problems reported Alcohol Screening: Question Answer Notes Did you have a drink containing alcohol in the past year? No Points 0 Interpretation Negative Tobacco Use: Question Answer Notes Are you a: never smoker REASON FOR REFERRAL No Information VITAL SIGNS Weight 170 lbs Dec, Height 73 in Dec, BMI 22.43 kg/m2 Dec, Heart Rate 60 /min Dec, Respiratory Rate 18 /min Dec, Temperature 96.0 degrees Fahrenheit Dec, Oximetry 97% Dec, Blood pressure systolic 120 mm Hg Dec, Blood pressure diastolic 71 mm Hg Dec, MEDICATIONS Medication SIG (Take, Route, Frequency, Duration) Start Date En d Date Status Sodium Chloride 1 GM 1 tablet Orally Once a day Active Lasix 40 MG 1 tablet Orally Once a day A ctive Flomax 0.4 MG 1 capsule Orally-dr philippe before bedtime Active Donepezil HCl 10 MG 1 tablet at bedtime Orally Once a day Active Tradjenta 5 MG 1 tablet Orally-dr philippe before bedtime Active Stool Softener 100 MG Colace 1 capsule as needed Orally twice daily Active Divalproex Sodium ER 500 MG as directed Orally Daily Active Memantine HCl 10 MG 1 tablet Orally-dr aebbe Twice a day Active Proscar 5 MG 1 tablet Orally-dr denae before bedtime Active Zyrtec Allergy 10 MG 1 tablet Orally Once a day Active Centrum Silver - as directed Orally Activ e Simvastatin 20 MG 1 tab orally before bedtime Active PROCEDURES Procedure Date Ordered Result Body Site Immunization: Flublok Quadrivalent (18 years & older) 0.5mL IM (Influenza) 2019-12-22 N/A RESULTS No Results REASON FOR VISIT 3 MONTH FU MEDICAL (GENERAL) HISTORY Type Description Date Medical History Type 2 diabetes, not on insulin Medical History Glaucoma Medical History hypertension Medical History dementia Medical History BPH, no history of surgery on prostate o r urinary tract Medical History AAA without surgery, Infrare nal abdominal aortic aneurysm measuring 5.3 cm maximal diameter 04/2017 Medical History Hyperlipidemia Medical History Shingles around 1999 Medical History emphysema Surgical History hernias Surgical History bilateral catarac Surgical History cyst removed off left neck Hospitalization History [facility]-syncope, hyponatremia, hypotensi on 04/18/2017 Hospitalization History [facility] seizures 06/04/2019-06/05-2 020 Goals Section No Information Health Concerns No Information MEDICAL EQUIPMENT No Information MENTAL STATUS No Information FUNCTIONAL STATUS No Information ASSESSMENTS Encounter Date Diagnosis Notes Dec, Type 2 diabetes mellitus wit hout complication, without long-term current use of insulin (ICD-10 - E11.9) Dec, Encounter for immunization (ICD-10 - Z23 ) Dec, Constipation, unspecified constipation t ype (ICD-10 - K59.00) Dec, Hypertension, unspecified type (ICD-10 - I10) Dec, Dementia without behavioral disturbance, unspecified dementia type (ICD-10 - F03.90) PLAN OF TREATMENT Treatment Notes Assessment Notes Clinical Notes Dementia without behavioral disturbance, unspecified dementi a type Patient mostly nonverbal. Lives with and caregivers.As with , would benefit from assisted living facility. In the past would rather live at home. Again she expresses not to live anywhere else but home. Discuss again in future. Encounter for immunization Patient Educated with: FLU Vaccine, Inactivated [id number] (FLU Vaccine, Inactivated [id number]) Flu shot recommended. Administered. Type 2 diabetes mellitus without complic ation, without long-term current use of insulin Continue to monitor home glu cose, fingersticks. Hypertension, unspecified type Continue to monitor BP. Constipation, unspecified constipation type Patient continues to have loose stools, sometimes accidents. Discussed in past and at visit, decrease bowel medications. notes history of AAA and concern for rupture despite not persuing surgery and therefore will continue medication. If worsens consider GI evaluation. Next Appt Details 3 mth Reason: Provider Name:Vipin Torres, 2020-03-22 02:30:00 PM, [address] [place], [address], Insurance Providers Payer Name Payer Address Payer Phone Insured Name Patient Relati onship to Insured Coverage Start Date Coverage End Date MEDICARE Part A and B [address] [facility] [address] MALORIE PIEDRA self [facility] [address] [id number] [facility] [id number] MALORIE PIEDRA self
--- OUTSIDE RECORDS SUMMARY | 2020-03-24 13:06 | CCD ---
Author Author [facility] Organization [facility] Address Unknown Phone Unavailable Care Team Providers Care Gym Manager Name Role Phone TorresVipin Unavailable PROBLEMS Type Condition ICD9-CM Code [id number] Code Onset Dates Condition S tatus SNOMED Code Notes Problem Glaucoma, unspecified glaucoma type, unspecified lateralit y H40.9 Active 91179343 Problem Abdominal aortic aneurysm (AAA) without rupture I7 1.4 Active 62251985 Problem Type 2 diabetes mellitus wit hout complication, without long-term current use of insulin E11.9 Active 669960172 Problem Dyslipidemia E78.5 Active 061089363 Problem Hypertension, unspecified type I10 Active 3 0171675 Problem Constipation, unspecified constipation type K59.00 Active 62669500 Problem Seizure R56.9 Active 61561519 Problem Hyperlipidemia, unspecified hyperlipidemia type E7 8.5 Active 34729175 Problem Dementia without behavioral disturbance, unspeci fied dementia type F03.90 Active 09310392 Problem Anemia, chronic disease D63.8 Active 52532994 6 Problem Iron deficiency anemia, unspecified iron deficiency an emia type D50.9 Active 08199821 ALLERGIES Allergen (clinical drug ingredient) Drug/Non Drug Allergy do cumented on EMR Reaction Allergy Type Onset Date Status amiloride Amiloride HCl([facility] Code:[address]-79) Rash Drug Jimmy rgy Active Gustavo inhibitor (for allergies use only) cough Drug All ergy Active ENCOUNTERS from 1933 to 2020-01-26 Encounter Location Date Provider Diagnosis [facility] [address] [place] [address] Jan, Vipin Torres IMMUNIZATIONS Vaccine Route Administration Date Status Influenza [...] Education Language: Question Answer Notes Languages spoken: Wallisian Anglican: Question Answer Notes Anglican 03 Yazidism Sexual Hx: Question Answer Notes Had sex [...] REASON FOR REFERRAL No Information VITAL SIGNS No information MEDICATIONS Medication SIG (Take, Route, Frequency, Duration) Notes Start Da te End Date Status Sodium Chloride 1 GM 1 tablet Orally Once a day Active Lasix 40 MG 1 tablet Orally Once a day Active Flomax 0.4 MG 1 capsule Orally-dr philippe before bedtime Active Donepezil HCl 10 MG 1 tablet at bedtime Orally Once a day Active Tradjenta 5 MG 1 tablet Orally-dr philippe before bedtime Active Stool Softener 100 MG Colace 1 capsule as needed Orally twice daily Active Divalproex Sodium ER 500 MG as directed Orally Daily Active Memantine HCl 10 MG 1 tablet Orally-dr abebe Twice a day Active Proscar 5 MG 1 tablet Orally-dr philippe before bedtime Active Zyrtec Allergy 10 MG 1 tablet Orally Once a day Active Centrum Silver - as directed Orally Active Simvastatin 20 MG 1 tab orally before bedtime Active PROCEDURES No Information RESULTS No Results REASON FOR VISIT diarrhea MEDICAL (GENERAL) HISTORY Type Description Date Medical History Type 2 diabetes, not on insulin Medical History Glaucoma Medical History hypertension Medical History dementia Medical History BPH, no history of surgery on prostate o r urinary tract Medical History AAA without surgery, Infrare nal abdominal aortic aneurysm measuring 5.3 cm maximal diameter 04/2017 Medical History Hyperlipidemia Medical History Shingles around 2000 Medical History emphysema Surgical History hernias Surgical History bilateral catarac Surgical History cyst removed off left neck Hospitalization History [facility]-syncope, hyponatremia, hypotensi on 04/18/2017 Hospitalization History [facility] seizures 06/04/2019-06/05-2 020 Goals Section No Information Health Concerns No Information MEDICAL EQUIPMENT No Information MENTAL STATUS No Information FUNCTIONAL STATUS No Information ASSESSMENTS No Information PLAN OF TREATMENT Next Appt Details Provider Name:Vipin Torres, 2020-03-22 02:30:00 PM, [address] [place], [address], Insurance Providers Payer Name Payer Address Payer Phone Insured Name Patient Relati onship to Insured Coverage Start Date Coverage End Date R [facility] [address] [id number] [facility] [phone] MALORIE PIEDRA self MEDICARE Part A and B [address] [facility] [id number] MALORIE PIEDRA self
--- OUTSIDE RECORDS SUMMARY | 2020-03-24 13:06 | CCD | Continuity of Care Document ---
Author Author Victor M ANTONIO [facility] Organization Unknown Address [address] [place] [address] Phone [phone] Care Team Providers Care Documentation Supervisor Name Role Phone [facility] AUTM [phone] Problems Active Problems Provider Date Peripheral circulatory disorder associated with type 2 diabetes mellitus Natividad Antonio DPM-pc Onset: 04/29/2018 Callus of heel Natividad Antonio DPM-pc Onset: 11/06/2017 Pain in limb Natividad Antonio DPM-pc Onset: 11/06/2017 Edema Natividad Antonio DPM-pc Onset: 11/06/2017 Onychomycosis Natividad Antonio DPM-pc Onset: 11/06/2017 Atherosclerosis of arteries of the extremities Natividad deluca DPM-pc Onset: 11/06/2017 Social History Type Date Description Comments Sex Unknown Tobacco Use Start: Unknown End: Unknown Former Cigarette Smo ker Tobacco Use Start: Unknown Never Smoked Cigars Tobacco Use Start: Unknown Never Smoked A Pipe Smoking Status Reviewed: 01/13/20 Never Smoked A Pipe Tobacco Use Start: Unknown Never Used Smokeless Tobacco ETOH Use Denies alcohol use Tobacco Use Start: Unknown End: Unknown Patient is a former smoker Allergies, Adverse Reactions, Alerts Active Allergies Reaction Severity Comments Date Seasonal 11/06/2017 Medications Active Medications SIG Qnty Indications Ordering Provide r Date Sodium Chloride 1gm Tablets Unknown Zyrtec Allergy 10mg Capsules 1 by mouth every day Unknown Yxggznt-Auhwxhdbqqh-Hzuaotdlho 0.5-0.15-2% Solution Unknown Divalproex Sodium 250mg Tablets DR Unknown Docusate Sodium 100mg Capsules 1 cap by mouth twice a day Unknown Multivitamin Adult Chewtabs Unknown Nystatin-Triamcinolone 903102-0.1Unit/GM-% Cream Fish, Ga Dumont, DO Simvastatin 20mg Tablets Unknown Tradjenta [facility]mg [facility]ts [facility], Donepezil HCL 10mg Tablets Ali, [facility] Tamsulosin HCL 0.4mg Capsules [facility], Furosemide 40mg Tablets Unknown Memantine HCL 10mg Tablets Ali, [facility] Finasteride 5mg Tablets [facility], Latanoprost 0.005% Solution Emile Thomas Dorzolamide HCL/Timolol Maleate 22.3-6.8mg/ml Solution Emile Simmons Brimonidine Tartrate 0.2% Solution Emile Simmons Immunizations Description No Information Available Vital Signs Date Vital Result Comment 02/13/2018 1:06pm Weight 189.00 lb Weight 85.730 kg Height 73 inches 6'1" BMI (Body Mass Index) 24.9 kg/m2 BSA (Body Surface Area) 2.10 m2 11/06/2017 3:26pm Weight 185.00 lb Weight 83.916 kg Height 73 inches 6'1" BMI (Body Mass Index) 24.4 kg/m2 BSA (Body Surface Area) 2.08 m2 Results Description No Information Available Procedures Date Code Description Status 10/28/2019 47944 Debridement Nails Any Method 6 O r More Completed 10/28/2019 85621 Pare Hyperkeratotic Lesion, 2-4 Completed 08/19/2019 10347 Debridement Nails Any Method 6 O r More Completed 08/19/2019 21008 Pare Hyperkeratotic Lesion, 2-4 Completed Medical Devices Description No Information Available Encounters Description No Information Available Assessments Date Code Description Provider 01/13/2020 E11.51 Type 2 diabetes mellitus with di abetic peripheral angiopathy Isai Small 01/13/2020 R60.1 Generalized edema Isai Small 01/13/2020 L84 Corns and callosities Natividad Will iams, DPM-pc 01/13/2020 B35.1 Tinea unguium Natividad Antonio DPM-pc 01/13/2020 M79.671 Pain in right foot Natividad delucaZOILAM-pc 01/13/2020 M79.672 Pain in left foot Natividad ZOILA AntonioM-pc 10/28/2019 E11.51 Type 2 diabetes mellitus with di abetic peripheral angiopathy Natividad ZOILA AntonioM-pc 10/28/2019 R60.1 Generalized edema Natividad Antonio ZOILAM-pc 10/28/2019 L84 Corns and callosities Natividad Will iams, DPM-pc 10/28/2019 B35.1 Tinea unguium Natividad Rad DPM-pc 10/28/2019 M79.671 Pain in right foot Natividad delucaZOILAM-pc 08/19/2019 E11.51 Type 2 diabetes mellitus with di abetic peripheral angiopathy Natividad ZOILA AntonioM-pc 08/19/2019 L84 Corns and callosities Natividad Will iams, DPM-pc 08/19/2019 B35.1 Tinea unguium Natividad AntonioZOILAM-pc 08/19/2019 M79.671 Pain in right foot Natividad delucaZOILAM-pc 08/19/2019 R60.1 Generalized edema Isai mSall Plan of Treatment Future Appointment(s):* 03/23/2020 2:45 pm - Isai Small at [facility] Pod[facility] 01/13/2020 - Isai Small* E11.51 Type 2 diabetes mellitus with diabetic peripheral angiopathy * R60.1 Generalized edema * L84 Corns and callosities* Comments:* I removed hyperkeratosis from the heels bilaterally with scalpel and burred to normal thickness. I debrided mycotic nails: x10 with nippers and burred to normal thickness. I will continue to monitor hammertoes. He will continue wearing support hose to control edema and will continue using cane for ambulation. Lotioned feet. Follow up in 10 weeks. * B35.1 Tinea unguium * M79.671 Pain in right foot * M79.672 Pain in left foot Functional Status Description No Information Available Mental Status Description No Information Available Referrals Description No Information Available
--- OUTSIDE RECORDS SUMMARY | 2020-03-24 13:06 | CCD | Continuity of Care Document ---
Author Author Victor M WATERMAN M.D. Organization Unknown Address [address] [place] [address] Phone [phone] Care Team Providers Care Psychology Intern Name Role Phone Sancho Hsu M.D. AUTM [phone] Problems Active Problems Provider Date Mild cognitive disorder Teresa Waterman M.D. Onset: 7 Alzheimer's disease Teresa Waterman M.D. Onset: 04/11/2016 Normal pressure hydrocephalus Teresa Waterman M.D. Onset: 03/2016 Diabetic distal sensorimotor polyneuropathy Teresa Waterman M.D. Onset: 04/11/2016 Complex partial epileptic seizure Teresa Waterman M.D. Onset: 12/31/2017 Social History Type Date Description Comments Sex Unknown Tobacco Use Start: Unknown End: Unknown Patient is a former smoker Allergies, Adverse Reactions, Alerts Active Allergies Reaction Severity Comments Date Lisinopril 04/11/2016 Amiloride 07/30/2017 Medications Active Medications SIG Qnty Indications Ordering Provide r Date Divalproex Sodium ER 500mg Tablets ER 24HR 1 by mouth qhs. 90tabs Teresa Waterman M.D. 08/26/19 20 Donepezil HCL 10mg Tablets Take 1 Tablet By Mouth Every Day. Maximum Daily Dose Is 1. 90tabs Tina Waterman M.D. 09/25/2016 Memantine HCL 10mg Tablets Take 1 Tablet By Mouth Twice Daily. Maximum Daily Dose Is 2. 180tabs Ruslan Waterman M.D. 04/11/2016 Immunizations Description No Information Available Vital Signs Date Vital Result Comment 05/23/2016 1:44pm BP Systolic 135 mmHg BP Diastolic 85 mmHg Heart Rate 72 /min Respiratory Rate 16 /min 04/11/2016 9:21am BP Systolic 130 mmHg BP Diastolic 70 mmHg Heart Rate 70 /min Respiratory Rate 16 /min Height 73 inches 6'1" Weight 200.00 lb BMI (Body Mass Index) 26.4 kg/m2 [place] Body Weight 184 lb Results Description No Information Available Procedures Description No Information Available Medical Devices Description No Information Available Encounters Type Date Location Provider Dx Diagnosis Office Visit 08/26/2019 12:45p Main office - [place] Dionisio Mcgowan G30.1 Alzheimer's disease with late onset G31.84 Mild cognitive impairment, s o stated E11.42 Type 2 diabetes mellitus wit h diabetic polyneuropathy G40.209 Local-rel symptc epi w cmplx prt seiz,not ntrct,w/o stat epi Assessments Date Code Description Provider 08/26/2019 G30.1 Alzheimer's disease with late on set Teresa Waterman M.D. 08/26/2019 G31.84 Mild cognitive impairment, so st ated Teresa Waterman M.D. 08/26/2019 E11.42 Type 2 diabetes mellitus with di abetic polyneuropathy Teresa Waterman M.D. 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 Plan of Treatment No Information Available Functional Status Description No Information Available Mental Status Description No Information Available Referrals Description No Information Available
--- OUTSIDE RECORDS SUMMARY | 2020-03-24 13:06 | CCD | Continuity of Care Document ---
Author Author Victor M WATERMAN M.D. Organization Unknown Address [address] [place] [address] Phone [phone] Care Team Providers Care Bonsai Culturist Name Role Phone Sancho Hsu M.D. AUTM [phone] Problems Active Problems Provider Date Mild cognitive [...] qhs. 90tabs Teresa Waterman M.D. 08/26/19 20 Memantine HCL 10mg Tablets take 1 tablet by mouth twice daily. maximum daily dose is 2. 180tabs Ruslan Waterman M.D. 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 01/26/2020 E11.42 Type 2 diabetes mellitus with di abetic polyneuropathy Teresa Waterman M.D. 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 08/26/2019 G30.1 Alzheimer's disease with late on [...]
--- OUTSIDE RECORDS SUMMARY | 2020-03-24 13:07 | CCD ---
Author Author [facility] Organization [facility] Address Unknown Phone Unavailable Care Team Providers Care Recruiting Manager Name Role Phone Ron ANTONIO DPM PC Unavailable Unavailable Ron ANTONIO ALFONSO DPM PC Unavailable Unavailable Ron ANTONIO ALFONSO DPM PC Unavailable Unavailable Ron ANTONIO ALFONSO DPM PC Unavailable Unavailable Ron ANTONIO ALFONSO DPM PC Unavailable Unavailable Ron ANTONIO ALFONSO DPM PC Unavailable Unavailable Ron ANTONIO ALFONSO DPM PC Unavailable Unavailable Ron ANTONIO ALFONSO DPM PC Unavailable Unavailable Ron ANTONIO ALFONSO DPM PC Unavailable Unavailable Ron ANTONIO ALFONSO DPM PC Unavailable Unavailable Ron ANTONIO ALFONSO DPM PC Unavailable Unavailable Ron ANTONIO ALFONSO DPM PC Unavailable Unavailable Ron ANTONIO ALFONSO DPM PC Unavailable Unavailable Ron ANTONIO ALFONSO DPM PC Unavailable Unavailable Ron ANTONIO ALFONSO DPM PC Unavailable Unavailable Ron ANTONIO ALFONSO DPM PC Unavailable Unavailable Ron ANTONIO ALFONSO DPM PC Unavailable Unavailable Ron ANTONIO ALFONSO DPM PC Unavailable Unavailable Ron ANTONIO ALFONSO DPM PC Unavailable Unavailable Ron ANTONIO ALFONSO DPM PC Unavailable Unavailable MARISELA, J ALFONSO DPM PC Unavailable Unavailable MARISELA, J ALFONSO DPM PC Unavailable Unavailable MARISELA, J ALFONSO DPM PC Unavailable Unavailable MARISELA, J ALFONSO DPM PC Unavailable Unavailable MARISELA, J LAFONSO DPM PC Unavailable Unavailable Fish, J Ga Unavailable Unavailable Fish, J Ga Unavailable Unavailable Fish, J Ga Unavailable Unavailable Fish, J Ga Unavailable Unavailable Fish, J Ga Unavailable Unavailable Fish, J Ga Unavailable Unavailable Fish, J Ga Unavailable Unavailable Fish, J Ga Unavailable Unavailable Fish, J Ga Unavailable Unavailable Fish, J Ga Unavailable Unavailable Fish, J Ga Unavailable Unavailable Fish, J Ga Unavailable Unavailable Fish, J Ga Unavailable Unavailable Fish, J Ga Unavailable Unavailable Fish, J Ga Unavailable Unavailable Fish, J Ga Unavailable Unavailable Fish, J Ga Unavailable Unavailable Fish, J Ga Unavailable Unavailable Fish, J Ga Unavailable Unavailable Fish, J Ga Unavailable Unavailable Fish, J Ga Unavailable Unavailable Fish, J Ga Unavailable Unavailable Fish, J Ga Unavailable Unavailable Fish, J Ga Unavailable Unavailable Fish, J Ga Unavailable Unavailable Fish, J Ga Unavailable Unavailable Fish, J Ga Unavailable Unavailable Fish, J Ga Unavailable Unavailable Fish, J Ga Unavailable Unavailable Fish, J Ga Unavailable Unavailable Fish, J Ga Unavailable Unavailable Fish, J Ga Unavailable Unavailable Fish, J Ga Unavailable Unavailable Fish, J Ga Unavailable Unavailable Fish, J Ga Unavailable Unavailable Fish, J Ga Unavailable Unavailable Fish, J Ga Unavailable Unavailable Fish, J Ga Unavailable Unavailable Fish, J Ga Unavailable Unavailable Fish, J Ga Unavailable Unavailable Fish, J Ga Unavailable Unavailable Fish, J Ga Unavailable Unavailable Fish, J Ga Unavailable Unavailable Fish, J Ga Unavailable Unavailable Fish, J Ga Unavailable Unavailable Fish, J Ga Unavailable Unavailable Fish, J Ga Unavailable Unavailable Fish, J Ga Unavailable Unavailable Fish, J Ga Unavailable Unavailable Fish, J Ga Unavailable Unavailable Fish, J Ga Unavailable Unavailable Fish, J Ga Unavailable Unavailable Fish, J Ga Unavailable Unavailable Fish, J Ga Unavailable Unavailable Fish, J Ga Unavailable Unavailable Fish, J Ga Unavailable Unavailable Fish, J Ga Unavailable Unavailable Fish, J Ga Unavailable Unavailable Fish, J Ga Unavailable Unavailable Fish, J Ga Unavailable Unavailable Fish, J Ga Unavailable Unavailable Fish, J Ga Unavailable Unavailable Fish, J Ga Unavailable Unavailable Fish, J Ga Unavailable Unavailable Fish, J Ga Unavailable Unavailable Fish, J Ga Unavailable Unavailable Fish, J Ga Unavailable Unavailable Fish, J Ga Unavailable Unavailable Fish, J Ga Unavailable Unavailable Fish, J Ga Unavailable Unavailable Fish, J Ga Unavailable Unavailable Fish, J Ga Unavailable Unavailable Fish, J Ga Unavailable Unavailable Fish, J Ga Unavailable Unavailable Fish, J Ga Unavailable Unavailable Fish, J Ga Unavailable Unavailable Fish, J Ga Unavailable Unavailable Fish, J Ga Unavailable Unavailable Fish, J Ga Unavailable Unavailable Fish, J Ga Unavailable Unavailable Fish, J Ga Unavailable Unavailable Fish, J Ga Unavailable Unavailable Fish, J Ga Unavailable Unavailable Fish, J Ga Unavailable Unavailable Teresa Waterman MD Unavailable Unavailable Teresa Waterman MD Unavailable Unavailable Teresa Waterman MD Unavailable Unavailable Teresa Waterman MD Unavailable Unavailable Teresa Waterman MD Unavailable Unavailable Teresa Waterman MD Unavailable Unavailable Teresa Waterman MD Unavailable Unavailable Teresa Waterman MD Unavailable Unavailable Teresa Waterman MD Unavailable Unavailable Teresa Waterman MD Unavailable Unavailable Teresa Waterman MD Unavailable Unavailable Teresa Waterman MD Unavailable Unavailable Teresa Waterman MD Unavailable Unavailable Teresa Waterman MD Unavailable Unavailable Teresa Waterman MD Unavailable Unavailable Teresa Waterman MD Unavailable Unavailable Teresa Waterman MD Unavailable Unavailable Teresa Waterman MD Unavailable Unavailable Teresa Waterman MD Unavailable Unavailable Teresa Waterman MD Unavailable Unavailable AliTeresa MD Unavailable Unavailable AliTeresa MD Unavailable Unavailable AliTeresa MD Unavailable Unavailable Teresa Waterman MD Unavailable Unavailable Teresa Waterman MD Unavailable Unavailable Teresa Waterman MD Unavailable Unavailable Teresa Waterman MD Unavailable Unavailable Teresa Waterman MD Unavailable Unavailable Teresa Waterman MD Unavailable Unavailable Teresa Waterman MD Unavailable Unavailable Teresa Waterman MD Unavailable Unavailable Teresa Waterman MD Unavailable Unavailable Teresa Waterman MD Unavailable Unavailable Teresa Waterman MD Unavailable Unavailable Teresa Waterman MD Unavailable Unavailable Teresa Waterman MD Unavailable Unavailable Teresa Waterman MD Unavailable Unavailable Teresa Waterman MD Unavailable Unavailable Teresa Waterman MD Unavailable Unavailable Ali, Teresa MD Unavailable Unavailable Ali, Teresa MD Unavailable Unavailable Ali, Teresa MD Unavailable Unavailable Ali, Teresa MD Unavailable Unavailable Ali, Teresa MD Unavailable Unavailable Ali, Teresa MD Unavailable Unavailable Ali, Teresa MD Unavailable Unavailable Ali, Teresa MD Unavailable Unavailable Ali, Teresa MD Unavailable Unavailable Ali, Teresa MD Unavailable Unavailable Ali, Teresa MD Unavailable Unavailable Ali, Teresa MD Unavailable Unavailable Ali, Teresa MD Unavailable Unavailable Re-disclosure Warning The records that you are about to access may contain information from federally-assisted alcohol or drug abuse programs. If such information is present, then the following federally mandated warning applies: This information has been disclosed to you from records protected by federal confidentiality rules (42 CFR part 2). The federal rules prohibit you from making any further disclosure of this information unless further disclosure is expressly permitted by the written consent of the person to whom it pertains or as otherwise permitted by 42 CFR part 2. A general authorization for the release of medical or other information is NOT sufficient for this purpose. The Federal rules restrict any use of the information to criminally investigate or prosecute any alcohol or drug abuse patient.The records that you are about to access may contain highly sensitive health information, the redisclosure of which is protected by Article 27-F of the [facility] Public Health law. If you continue you may have access to information: Regarding HIV / AIDS; Provided by facilities licensed or operated by the [facility] Office of Mental Health; or Provided by the [facility] Office for People With Developmental Disabilities. If such information is present, then the following [facility] mandated warning applies: This information has been disclosed to you from confidential records which are protected by state law. State law prohibits you from making any further disclosure of this information without the specific written consent of the person to whom it pertains, or as otherwise permitted by law. Any unauthorized further disclosure in violation of state law may result in a fine or long-term sentence or both. A general authorization for the release of medical or other information is NOT sufficient authorization for further disc losure. Allergies and Adverse Reactions Type Description Substance Reaction Status Data Source(s ) Drug allergy Amiloride HCl Amiloride Rash Active eCW1 ([facility]) Family History Family Member Name Family Member Gender Family Member Status Date o f Status Description Data Source(s) Unknown Male Problem MEDENT ([facility] Encounters Encounter Providers Location Date Indications Data Source(s ) Office Visit Attender: Teresa Waterman MD Main office - [place] 01/26/2020 11:15:00 AM EST MEDENT ([facility] DAVID Sapp) [place] [address] [address] 01/21/2020 12:00:00 AM EST eCW1 ([facility]) Outpatient Attender: ALFONSO ANTONIO DPM PCConsultant: Vero Jade 01/19/2020 12:55:00 PM EST - 01/13/2020 12:55:00 PM EST [facility] Patient discharged. Outpatient [address] [facility] [place] [address] 12/22/2019 12:00:00 AM EDT eCW1 ([facility]) Outpatient Attender: ALFONSO ANTONIO DPM 10/28/2019 03:32:00 PM EDT - 10/28/2019 03:32:00 PM EDT [facility] [place] [address] [address] 09/14/2019 12:00:00 AM EDT eCW1 ([facility]) [facility] [place] [address] [facility] [place] [address] 09/01/2019 12:00:00 AM EDT eCW1 ([facility]) Office Visit Attender: Teresa Waterman MD Main office - [place] 08/26/2019 12:45:00 PM EDT MEDENT ([facility] Emreald stuart ) Outpatient Attender: ALFONSO ANTONIO DPM PCConsultant: Vero Jade 08/19/2019 03:25:00 PM EDT - 08/19/2019 03:25:00 PM EDT [facility] [place] [address] [address] 08/06/2019 12:00:00 AM EDT eCW1 ([facility]) [facility] [place] [address] [facility] [place] [address] 07/15/2019 12:00:00 AM EDT eCW1 ([facility]) [facility] [place] [address] [address] 07/08/2019 12:00:00 AM EDT eCW1 ([facility]) [facility] [address] [address] 07/06/2019 12:00:00 AM EDT eCW1 ([facility]) [facility] [address] [address] 07/01/2019 12:00:00 AM EDT eCW1 ([facility]) [facility] [address] [address] 06/29/2019 12:00:00 AM EDT eCW1 ([facility]) [facility] [address] [address] 06/22/2019 12:00:00 AM EDT eCW1 ([facility]) [facility] [address] [address] 06/17/2019 12:00:00 AM EDT eCW1 ([facility]) [facility] [address] [address] 06/12/2019 12:00:00 AM EDT eCW1 ([facility]) Outpatient Attender: ALFONSO ANTONIO DPM PCConsultant: Vero Jade 06/10/2019 03:28:00 PM EDT - 06/10/2019 03:28:00 PM EDT [facility] [address] [address] 06/09/2019 12:00:00 AM EDT eCW1 ([facility]) [facility] [address] [place] [address], [place] [address] 06/08/2019 12:00:00 AM EDT eCW1 ([facility]) [facility] [address] [place] [address], [place] [address] 06/04/2019 12:00:00 AM EDT eCW1 ([facility]) [facility] [address] [address] 05/21/2019 12:00:00 AM EDT eCW1 ([facility]) [facility] [address] [place] [address] 05/21/2019 12:00:00 AM EDT eCW1 ([facility] [address] [address] 04/09/2019 12:00:00 AM EST eCW1 ([facility]) Outpatient Attender: ALFONSO ANTONIO DPM 04/01/2019 09:18:00 AM EST - 04/01/2019 09:18:00 AM EST [facility] [address] [place] [address], [place] [address] 03/20/2019 12:00:00 AM EST eCW1 ([facility]) [facility] [address] [place] [address], [place] [address] 03/13/2019 12:00:00 AM EST eCW1 ([facility]) [facility] [address] [place] [address], [place] [address] 03/13/2019 12:00:00 AM EST eCW1 ([facility]) [facility] [address] [place] [address], [place] [address] 02/26/2019 12:00:00 AM EST eCW1 ([facility]) [facility] [address] [place] [address], [place] [address] 02/26/2019 12:00:00 AM EST eCW1 ([facility]) [facility] [address] [address] 02/24/2019 12:00:00 AM EST eCW1 ([facility]) Outpatient Attender: ALFONSO ANTONIO DPM PCConsultant: Vero cheatham Fish 01/27/2019 03:42:00 PM EST - 01/27/2019 03:42:00 PM [facility] Immunizations Vaccine Date Status Description Data Source(s) influenza, recombinant, quadrIvalent,injectable, prese rvative free 12/22/2019 03:23:00 PM EDT completed eCW1 ([facility]) influenza, recombinant, quadrIvalent,injectable, prese rvative free 12/22/2019 03:23:00 PM EDT completed eCW1 ([facility]) Medications Medication Brand Name Start Date Product Form Dose Route Admi nistrative Instructions Pharmacy Instructions Status Indications Reaction Description Data Source(s) 24 HR Divalproex Sodium 500 MG Extended Release Oral T ablet Divalproex Sodium ER 08/26/2019 12:00:00 AM EDT ORAL active MEDENT ([facility], ) OneTouch Ultra 2 w/Device OneTouch Ultra 2 w/Device 08/06/2019 1 2:00:00 AM EDT active OneTouch Ultra 2 w/Device eCW1 ([facility]) OneTouch Ultra 2 w/Device OneTouch Ultra 2 w/Device 08/06/2019 1 2:00:00 AM EDT active as directed eCW1 ([facility]) Timolol 0.005 MG/MG Ophthalmic Gel Timol ol Maleate 0.5% Ophthalmic Gel Forming Solution Timolol Maleate 0.5% Ophthalmic Gel Forming Solution 0 07/10/2018 12:00:00 AM EDT 1 active Timolol 0.005 MG/MG Ophthalmic Gel RENA (Emile Gao [facility]) Brimonidine tartrate 2 MG/ML Ophthalmic Solution Brimonidine Tartrate 0.2% Ophthalmic Solution Brimonidine Tartrate 0.2% Ophthalmic Solution 07/08/19 19 12:00:00 AM EDT active Brimonidine tartrate 2 MG/ML Ophthalmic Solution RENA (Em[facility] G[facility]) Insurance Providers Payer name Policy type / Coverage type Policy ID Covered libertarian ID Covered libertarian's relationship to eckert Policy Eckert Plan Information MEDICARE [id number] SP [id number] [facility] [id number] MEDICAID -PHYSICIAN [id number] MEDICAID [id number] [facility] [id number] 18 [id number] MEDICARE PART A [facility] [id number] [id number] [facility] [id number] SP [id number] [facility] [id number] SP [id number] VNA HOMECARE OPTIONS [id number] SP [id number] [employer] [place] Other 0 Self 0 Medicare Part B [facility] Other 0 Se lf 0 VNA HOMECARE OPTIONS [id number] [place] [id number] ANSI-Commercial [id number] ANSI-Medicare Part B [id number] ANSI-Commercial [id number] ANSI-Medicare Part B [id number] ANSI-Medicare Part B [id number] ANSI-Commercial [id number] ANSI-Commercial [id number] ANSI-Medicare Part B [id number] ANSI-Medicare Part B [id number] ANSI-Commercial [id number] ANSI-Commercial [id number] ANSI-Medicare Part B [id number] ANSI-Medicare Part B [id number] ANSI-Commercial [id number] MEDICARE [id number] SP [id number] ANSI-Commercial [id number] ANSI-Medicare Part B [id number] ANSI-Commercial [id number] ANSI-Medicare Part B [id number] ANSI-Medicare Part B [id number] ANSI-Commercial [id number] MEDICAID [id number] SP [id number] [facility] [id number] SP [id number] MEDICARE [id number] SP [id number] ANSI-Medicare Part B [id number] ANSI-Commercial [id number] MEDICARE [id number] SP [id number] A ANSI-Commercial [id number] ANSI-Medicare Part B [id number] MEDICAID [id number] SP [id number] VNA HOMECARE OPTIONS [id number] SP [id number] [facility] [id number] SP [id number] Medicare Part B of [facility] Other 0 Se lf 0 Medicare Part B of [facility] Other 0 Se lf 0 Medicare Part B of [facility] Other 0 Se lf 0 Medicare Part B of [facility] Other 0 Se lf 0 Medicare Part B of [facility] Other 0 Se lf 0 Medicare Part B of [facility] Other 0 Se lf 0 Medicare Part B of [facility] Other 0 Se lf 0 Medicare Part B of [facility] Other 0 Se lf 0 Medicare Part B of [facility] Other 0 Se lf 0 Medicare Part B of [place] Other 0 Se lf 0 Medicaid Medigap Part B [id number] Self [id number] Medicare Medicare Primary [id number] Self [id number] [place] Medigap Part B [id number] Self [id number] MEDICARE [id number] SP [id number] A [facility] [id number] SP [id number] MEDICARE PART A [id number] Patient [id number] MEDICARE C [id number] S [id number] A MEDICAID M [id number] S [id number] [place] PPO O [id number] S [id number] Medicaid Medigap Part B [id number] Self [id number] Medicare Medicare Primary [id number] Self 05 [id number] [employer] O [id number] S [id number] MEDICAID-O/P [id number] [place]-O/P [id number] 18 [id number] [employer] MEDICARE O/P [id number] 18 [id number] MEDICARE COMPLETE [id number] [id number] [id number] SP [id number] [employer] MEDICARE-O/P [id number] 18 [id number] A [id number] Problems, Conditions, and Diagnoses Code Display Name Description Problem Type Effective Dates Data Source(s) R56.9 11113379 Seizure Problem 09/19/2019 12:00:00 AM ED T eCW1 ([facility]) K59.00 30597843 Constipation, unspecified constipation ty pe Problem 09/14/2019 12:00:00 AM EDT eCW1 ([facility]) I10 [id number] Hypertension, unspecified type Problem 07/13 12:00:00 AM EDT eCW1 ([facility]) I10 01234658 Hypertension, unspecified type Problem 07/13 12:00:00 AM EDT eCW1 ([facility]) E78.5 Dyslipidemia Dyslipidemia Problem 07/08/2019 12:00:00 A M EDT eCW1 ([facility]) E78.5 Dyslipidemia Dyslipidemia Problem 07/08/2019 12:00:00 A M EDT eCW1 ([facility]) D50.9 58612717 Iron deficiency anemia, unspecif ied iron deficiency anemia type Problem 04/09/2019 12:00:00 AM EST eCW1 ([facility]) D50.9 [id number] Iron deficiency anemia, unspecif ied iron deficiency anemia type Problem 04/09/2019 12:00:00 AM EST eCW1 ([facility]) R601 Generalized edema Generalized edema Diagnosis 01/13/2020 12:55:00 PM [facility] [id number] Pain in left foot Pain in left foot Diagnosis 01/13/2020 12:55:00 PM [facility] [id number] Pain in right foot Pain in right foot Diagnosis 06/2019 12:55:00 PM [facility] L84 Corns and callosities Corns and callosities Diagnosis 01/13/2020 12:55:00 PM [facility] B351 Tinea unguium Tinea unguium Diagnosis 01/13/2020 12:55:00 PM [facility] E1151 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 2 diabetes mellitus with diabetic p eripheral angiopathy without gangrene Diagnosis 01/13/2020 12:55:00 PM [facility] Surgeries/Procedures Procedure Description Date Indications Data Source(s) Immunization: Flublok Quadrivalent (18 years & older) 0.5mL IM (Influenza) 12/22/2019 12:00:00 AM EDT eCW1 ([facility]) Pare Hyperkeratotic Lesion, 2-4 10/28/2019 12:00:00 AM EDT MEDENT ([facility]) Debridement Nails Any Method 6 Or More 10/28/2019 12:0 0:00 AM EDT MEDENT ([facility]) Pare Hyperkeratotic Lesion, 2-4 08/19/2019 12:00:00 AM EDT MEDENT ([facility]) Debridement Nails Any Method 6 Or More 08/19/2019 12:0 0:00 AM EDT MEDENT ([facility]) Pare Hyperkeratotic Lesion, 2-4 06/10/2019 12:00:00 AM EDT MEDENT ([facility]) Debridement Nails Any Method 6 Or More 06/10/2019 12:0 0:00 AM EDT MEDENT ([facility]) TRANS CARE MGMT 7 DAY DISCH 06/09/2019 12:00:00 AM EDT eCW1 ([facility]) Transitional Care NO CHARGE Visit 06/08/2019 12:00:00 AM EDT eCW1 ([facility]) Office Visit, Est Pt., Level 2 FC 04/09/2019 12:00:00 AM EST eCW1 ([facility]) Office Visit, Est Pt., Level 3 PC 04/09/2019 12:00:00 AM EST eCW1 ([facility]) Pare Hyperkeratotic Lesion, 2-4 04/01/2019 12:00:00 AM EST MEDENT ([facility]) Debridement Nails Any Method 6 Or More 04/01/2019 12:0 0:00 AM EST MEDENT ([facility]) Colorectal cancer screening; fecal occul t blood test, immunoassay, 1-3 simultaneous 03/13/2019 12:00:00 AM EST eCW1 ([facility]) Office Visit, Est Pt., Level 4 PC 02/26/2019 12:00:00 AM EST eCW1 ([facility]) Pare Hyperkeratotic Lesion, 2-4 01/27/2019 12:00:00 AM EST MEDENT ([facility]) Debridement Nails Any Method 6 Or More 01/27/2019 12:0 0:00 AM EST MEDENT ([facility]) Results ID Date Data Source [id number] 07/09/2019 12:00:00 AM EDT eCW1 ([facility]) Name Value Range Interpretation Code Description Data Shabana rce(s) Supporting Document(s) Microalbumin/Creatinine [Mass Ratio] in Urine 127.0 CREATININE, URINE eCW1 ([facility]) Albumin/Creatinine [Mass Ratio] in Urine 146.0 MALB URINE SIEMENS eCW1 ([facility]) Microalbumin/Creatinine [Ratio] in Urine 114.9 0.0-30.0 CHIO/CREAT RATIO eCW1 ([facility]) ID Date Data Source Basic Metabolic Profile (BMP) 07/08/2019 12:00:00 AM EDT eCW 1 ([facility]) Name Value Range Interpretation Code Description Data Shabana rce(s) Supporting Document(s) 103 70-100 GLUCOSE, FASTING eCW1 ([facility]) 0.77 0.70-1.30 CREATININE FOR GFR eCW1 ([facility]) 23 7-18 BLOOD UREA NITROGEN eCW1 ([facility]) > 60.0 >35 GLOMERULAR FILTRATION RATE eCW 1 ([facility]) 136 136-145 SODIUM LEVEL eCW1 ([facility]) 3.9 3.5-5.1 POTASSIUM SERUM eCW1 ([facility]) 99 98-107 CHLORIDE LEVEL eCW1 ([facility]) 30 21-32 CARBON DIOXIDE LEVEL eCW1 ([facility]) 8.8 8.8-10.2 CALCIUM LEVEL eCW1 ([facility]) ID Date Data Source LIPID PANEL (CARDIAC RISK) 07/08/2019 12:00:00 AM EDT eCW1 ( [facility]) Name Value Range Interpretation Code Description Data Shabana rce(s) Supporting Document(s) Triglyceride [Mass/volume] in Serum or Plasma by calculation 73 <150 TRIGLYCERIDES LEVEL eCW1 ([facility]) Cholesterol in HDL [Moles/volume] in Serum or Plasma 35 >40 HDL CHOLESTEROL eCW1 ([facility]) Cholesterol [Moles/volume] in Serum or Plasma 105 <200 CHOLESTEROL LEVEL eCW1 ([facility]) Cholesterol in LDL [Mass/volume] in Serum or Plasma by calculation 55 <100 LDL CHOLESTEROL eCW1 ([facility]) 3.000 <5 CHOLESTEROL RISK RATIO eCW1 ([facility]) 70 NON-HDL-C eCW1 ([facility]) ID Date Data Source [id number] 07/08/2019 12:00:00 AM EDT eCW1 ([facility]) Name Value Range Interpretation Code Description Data Shabana rce(s) Supporting Document(s) Hemoglobin A1c/Hemoglobin.total in Blood 6.7 HEMOGLOBIN A1c eCW1 ([facility]) ID Date Data Source CBC with Differential 07/08/2019 12:00:00 AM EDT eCW1 ([facility]) Name Value Range Interpretation Code Description Data Shabana rce(s) Supporting Document(s) 4.77 4.30-6.10 RED BLOOD COUNT eCW1 ([facility]) 10.8 4.0-10.0 WHITE BLOOD COUNT eCW1 ([facility]ending sale to [facility]) 89.5 80.0-96.0 MEAN CORPUSCULAR VOLUME e CW1 ([facility]) 42.7 42.0-52.0 HEMATOCRIT eCW1 ([facility]) 13.5 13.5-17.5 HEMOGLOBIN eCW1 ([facility]) 14.4 11.5-14.5 RED CELL DISTRIBUTION WID TH eCW1 ([facility]) 203 150-450 PLATELET COUNT, AUTOMATED eCW1 ([facility]) 28.3 27.0-33.0 MEAN CORPUSCULAR HEMOGLOB IN eCW1 ([facility]) 31.6 32.0-36.5 MEAN CORPUSCULAR HGB CONC eCW1 ([facility]) 3.1 0.0-3.0 EOS % eCW1 ([facility]) 14.0 0.0-5.0 MONO % eCW1 ([facility]) 26.5 24.0-44.0 LYMPH % eCW1 ([facility]) 55.2 36.0-66.0 NEUTROPHILS % eCW1 ([facility]) 6.0 1.5-8.5 NEUTROPHILS # eCW1 ([facility]) 0.6 0.0-1.0 BASO % eCW1 ([facility]) 1.5 0.0-0.8 MONO # eCW1 ([facility]) 2.9 1.5-5.0 LYMPH # eCW1 ([facility]) 0.3 0.0-0.5 EOS # eCW1 ([facility]) 0.1 0.0-0.2 BASO # eCW1 ([facility]) ID Date Data Source TOTAL IRON BINDING CAPACIT 02/26/2019 12:00:00 AM EST eCW1 ( [facility]) Name Value Range Interpretation Code Description Data Shabana rce(s) Supporting Document(s) 52 65-175 IRON (FE) eCW1 ([facility]) 19.8 19.7-50.0 PERCENT SATURATION eCW1 ([facility]) 262 250-450 TOTAL IRON BINDING CAPACI TY eCW1 ([facility]) ID Date Data Source FERRITIN 02/26/2019 12:00:00 AM EST eCW1 ([facility]) Name Value Range Interpretation Code Description Data Shabana rce(s) Supporting Document(s) 62 55-388 FERRITIN eCW1 ([facility]) Procedure Social History Code Duration Value Status Description Data Source(s ) Smoking 01/13/2020 12:00:00 AM EST Never Smoked A Pipe complet ed Never Smoked A Pipe MEDENT ([facility]) Smoking 12/22/2019 12:00:00 AM EDT Never Smoker completed Never S moker eCW1 ([facility]) Smoking 12/22/2019 12:00:00 AM EDT Never Smoker completed Never S moker eCW1 ([facility]) Smoking 09/14/2019 12:00:00 AM EDT Never Smoker completed Never S moker eCW1 ([facility]) Vital Signs ID Date Data Source UNK Name Value Range Interpretation Code Description Data Source(s) Diastolic blood pressure 71 mm[Hg] 71 mm[Hg] eCW1 ([facility]) Systolic blood pressure 120 mm[Hg] 120 mm[Hg] e CW1 ([facility]) Body temperature 96.0 [degF] 96.0 [degF] eCW1 ( [facility]) Respiratory rate 18 /min 18 /min eCW1 ([facility]) Heart rate 60 /min 60 /min eCW1 ([facility]) Body mass index (BMI) [Ratio] 22.43 kg/m2 22.43 kg/m2 eCW1 ([facility]) Body height 73 [in_i] 73 [in_i] eCW1 ([facility]) Body weight 170 [lb_av] 170 [lb_av] eCW1 ([facility]) Diastolic blood pressure 71 mm[Hg] 71 mm[Hg] eCW1 ([facility]) Systolic blood pressure 135 mm[Hg] 135 mm[Hg] e CW1 ([facility]) Body temperature 97.8 [degF] 97.8 [degF] eCW1 ( [facility]) Respiratory rate 18 /min 18 /min eCW1 ([facility]) Heart rate 68 /min 68 /min eCW1 ([facility]) Body mass index (BMI) [Ratio] 22.95 kg/m2 22.95 kg/m2 eCW1 ([facility]) Body height 73 [in_i] 73 [in_i] eCW1 ([facility]) Body weight 174 [lb_av] 174 [lb_av] eCW1 ([facility]) Diastolic blood pressure 71 mm[Hg] 71 mm[Hg] eCW1 ([facility]) Systolic blood pressure 163 mm[Hg] 163 mm[Hg] e CW1 ([facility]) Body temperature 97.1 [degF] 97.1 [degF] eCW1 ( [facility]) Respiratory rate 18 /min 18 /min eCW1 ([facility]) Heart rate 60 /min 60 /min eCW1 ([facility]) Body mass index (BMI) [Ratio] 23.61 kg/m2 23.61 kg/m2 eCW1 ([facility]) Body height 73 [in_us] 73 [in_us] eCW1 ([facility]) Body weight Measured 179 [lb_av] 179 [lb_av] eC W1 ([facility]) Diastolic blood pressure 72 mm[Hg] 72 mm[Hg] eCW1 ([facility]) Systolic blood pressure 130 mm[Hg] 130 mm[Hg] e CW1 ([facility]) Body temperature 97.2 [degF] 97.2 [degF] eCW1 ( [facility]) Respiratory rate 18 /min 18 /min eCW1 ([facility]) Heart rate 60 /min 60 /min eCW1 ([facility]) Body mass index (BMI) [Ratio] 23.75 kg/m2 23.75 kg/m2 eCW1 ([facility]) Body height 73 [in_us] 73 [in_us] eCW1 ([facility]) Body weight Measured 180 [lb_av] 180 [lb_av] eC W1 ([facility]) Diastolic blood pressure 76 mm[Hg] 76 mm[Hg] eCW1 ([facility]) Systolic blood pressure 142 mm[Hg] 142 mm[Hg] e CW1 ([facility]) Body temperature 99.1 [degF] 99.1 [degF] eCW1 ( [facility]) Respiratory rate 18 /min 18 /min eCW1 ([facility]) Heart rate 60 /min 60 /min eCW1 ([facility]) Body mass index (BMI) [Ratio] 24.01 kg/m2 24.01 kg/m2 eCW1 ([facility]) Body height 73 [in_us] 73 [in_us] eCW1 ([facility]) Body weight Measured 182 [lb_av] 182 [lb_av] eC W1 ([facility]) Diastolic blood pressure 65 mm[Hg] 65 mm[Hg] eCW1 ([facility]) Systolic blood pressure 136 mm[Hg] 136 mm[Hg] e CW1 ([facility]) Body temperature 97.3 [degF] 97.3 [degF] eCW1 ( [facility]) Respiratory rate 17 /min 17 /min eCW1 ([facility]) Heart rate 64 /min 64 /min eCW1 ([facility]) Body mass index (BMI) [Ratio] 25.09 kg/m2 25.09 kg/m2 eCW1 ([facility]) Body height 73 [in_us] 73 [in_us] eCW1 ([facility]) Body weight Measured 190.2 [lb_av] 190.2 [lb_av ] eCW1 ([facility]) Diastolic blood pressure 55 mm[Hg] 55 mm[Hg] eCW1 ([facility]) Systolic blood pressure 91 mm[Hg] 91 mm[Hg] e CW1 ([facility]) Body temperature 97.8 [degF] 97.8 [degF] eCW1 ( [facility]) Respiratory rate 17 /min 17 /min eCW1 ([facility]) Heart rate 101 /min 101 /min eCW1 ([facility]) Body mass index (BMI) [Ratio] 25.65 kg/m2 25.65 kg/m2 eCW1 ([facility]) Body height 73 [in_us] 73 [in_us] eCW1 ([facility]) Body weight Measured 194.4 [lb_av] 194.4 [lb_av ] eCW1 ([facility]) Patient Treatment Plan of Care Planned Activity Planned Date Details Description Data Source (s) InfraSearchTouch Ultra 2 w/Device 08/06/2019 12:00:00 AM EDT eCW1 ([facility]) Timolol 0.005 MG/MG Ophthalmic Gel 07/10/2018 12:00:00 AM EDT RENA (Emile Gao MD [facility]) Brimonidine tartrate 2 MG/ML Ophthalmic Solution 07/07/2018 12:00:0 0 AM EDT RENA (Emile Gao MD [facility])
[2020-03-24 13:17] LABS: BASO # 0.1 10^3/uL (0.0-0.2); BASO % 0.9 % (0.0-1.0); EOS # 0.4 10^3/uL (0.0-0.5); EOS % 3.7 % (0.0-3.0); HEMATOCRIT 37.3 % (42.0-52.0); HEMOGLOBIN 11.4 g/dl (13.5-17.5); LYMPH # 2.9 10^3/uL (1.5-5.0); LYMPH % 29.1 % (24.0-44.0); MEAN CORPUSCULAR HEMOGLOBIN 26.8 pg (27.0-33.0); MEAN CORPUSCULAR HGB CONC 30.6 g/dl (32.0-36.5); MEAN CORPUSCULAR VOLUME 87.8 fl (80.0-96.0); MONO # 1.2 10^3/uL (0.0-0.8); NEUTROPHILS # 5.3 10^3/uL (1.5-8.5); NEUTROPHILS % 53.3 % (36.0-66.0); PLATELET COUNT, AUTOMATED 247 10^3/uL (150-450); RED BLOOD COUNT 4.25 10^6/uL (4.30-6.10); WHITE BLOOD COUNT 9.9 10^3/uL (4.0-10.0)
--- NOTE | 2020-03-24 13:28 | REP ---
INDICATION: Altered Mental Status COMPARISON: 11/18/2017 TECHNIQUE: Portable AP view of the chest FINDINGS: The mediastinum and cardiac silhouette are stable and within normal limits for portable technique. The lung cline demonstrate stable chronic interstitial changes without obvious acute consolidation, effusion, or pneumothorax. Skeletal structures stable. IMPRESSION: Chronic stable changes similar to prior examination. No obvious acute consolidation or effusion. <Electronically signed by Francisco Trejo > 03/24/20 1452
[2020-03-24 13:41] LABS: OSMOLALITY SERUM 293 MOSM/KG (280-301)
[2020-03-24 13:52] LABS: ALBUMIN 2.5 GM/DL (3.2-5.2); ALT/SGPT 15 U/L (12-78); BILIRUBIN,DIRECT 0.1 MG/DL (0.0-0.2); BILIRUBIN,TOTAL 0.4 MG/DL (0.2-1.0); BLOOD UREA NITROGEN 23 MG/DL (7-18); CALCIUM LEVEL 8.6 MG/DL (8.8-10.2); CARBON DIOXIDE LEVEL 33 MEQ/L (21-32); CHLORIDE LEVEL 100 MEQ/L (98-107); CK-MB VALUE MASS < 1.0 NG/ML (<3.6); CPK CREATINE PHOSPHOKINASE 20 U/L (39-308); CREATININE FOR GFR 0.72 MG/DL (0.70-1.30); GLOMERULAR FILTRATION RATE > 60.0 (>35); GLUCOSE, FASTING 143 MG/DL (70-100); POTASSIUM SERUM 3.8 MEQ/L (3.5-5.1); SODIUM LEVEL 138 MEQ/L (136-145); TOTAL PROTEIN 6.5 GM/DL (6.4-8.2); TROPONIN I < 0.02 NG/ML (< 0.10); VALPROIC ACID (DEPAKOTE) 41.8 UG/ML (50.0-100.0)
--- NOTE | 2020-03-24 15:11 | REPVR ---
PROCEDURE INFORMATION: Exam: CT Head Without Contrast Exam date and time: 03/24/2020 2:55 PM Age: 84 years old Clinical indication: Altered mental status/memory loss TECHNIQUE: Imaging protocol: Computed tomography of the head without contrast. Radiation optimization: All CT scans at this facility use at least one of these dose optimization techniques: automated exposure control; mA and/or kV adjustment per patient size (includes targeted exams where dose is matched to clinical indication); or iterative reconstruction. COMPARISON: CT Head without contrast 06/04/2019 11:41 AM FINDINGS: Brain: Moderate hypoattenuating foci are noted in the posterior superior periatrial and anterior lateral ventricular periventricular white matter bilaterally. No intracranial hemorrhage. No mass or acute cortical infarction identified. Cerebral ventricles: Prominence of the ventricular system and subarachnoid spaces is consistent with the patient's age of 84 years. Bones/joints: No acute abnormality identified. No acute fracture. Paranasal sinuses: Visualized sinuses are unremarkable. No fluid levels. Mastoid air cells: Visualized mastoid air cells are well aerated. Orbital cavity: Bilateral prior cataract surgery. Vasculature: Atherosclerotic calcifications are present involving the carotid artery siphons bilaterally and the left vertebral artery. Soft tissues: Unremarkable. IMPRESSION: 1. Age appropriate supratentorial and infratentorial atrophy. 2. Moderate chronic white matter microvascular ischemic disease. 3. No acute intracranial abnormality identified. Electronically signed by: Hemanth Campbell On 03/24/2020 15:11:36 PM
[2020-03-24] MEDS ORDERED: cefTRIAXone SOD 1 GM in D5W MINI-BAG PLUS 50 ML IV ONE (15:15)
--- NOTE | 2020-03-24 15:33 | HPEPDOC ---
[facility] Medical History & Physical Date of Admission Mar 24, 2020 Date of Service: Mar 24, 2020 Attending Physician: Gay Faustin MD History and Physical CHIEF COMPLAINT: Not receiving enough care at home HISTORY OF PRESENT ILLNESS: Patient is an 84-year-old male with past medical history of diabetes mellitus type 2, hypertension, dementia, glaucoma, hyperlipidemia, history of AAA, CKD stage unknown who presented to [facility] emergency room after being brought in by family. The patient lives with his elderly who requires several home health aides and she is also compromised. The patient is assigned 8 hours by a home health aide but recently the family has noticed when coming to check on him that he has been left soiled and his briefs for long periods of time. He has been less active as he is not getting out of bed much due to not having people to help them do so. They also noticed he has had decreased appetite and been nonverbal with them at times. He has a history of GI bleed was getting worked up as outpatient by his primary care provider, referral has outpatient for him to see someone for additional testing. At one point the family states that they were told he may "need a transfusion" but that has not occurred. He has had no noticeable bleeding. He is to go to adult daycare; however, with Covid the patient has been mostly home and does not get out of the house. Although the patient is confused at times with a diagnosis of dementia, he was very cooperative and was able to tell us that he has no acute complaints and denies chest pain, fevers, chills, nausea, vomiting, abdominal pain, shortness of breath, lightheadedness or dizziness. Emergency room vital signs were stable. H&H 11/37, blood sugar 143, creatinine within normal limits. UA positive and was sent for culture. Covid negative, chest x-ray showed chronic changes, CT of the head was negative. ECG showed old right bundle-branch block with PACs otherwise sinus rhythm. On exam the patient was cooperative and responsive with what he could remember. He had some confusion but was awake alert oriented 2. He did not know the year, president, reason for being at the hospital but was able to tell me his name, his birthday and his family member at the bedside. His daughter were explained to us that the patient's niece is his healthcare proxy, Stacy Coleman [phone]. Due to patient's living situation and inability to have enough care to safely discharge, the patient was admitted to the hospital for further care. PFS consulted. REVIEW OF SYSTEMS: Neg except what is mentioned above PAST MEDICAL HISTORY: Diabetes mellitus type 2 Hypertension Dementia Glaucoma Hyperlipidemia AAA, 5.3 cm Chronic diarrhea ? dysphagia CKD PAST SURGICAL HISTORY: Hernia repair Bilateral cataract Left neck cyst removal SOCIAL HISTORY: Marital status: Resides in: home Children: 2 daughters and one son Employment: Retired Tobacco use: Lifelong nonsmoker ETOH: No recent alcohol use Illicit drug use: History of illicit drug use, including IV drug use or marijuana. Other relevant social factors: Advanced dementia, requires assistance with daily activities, HOME HEALTH comes in 8 hrs weekly. HCP is shaquille Fisherx [phone] FAMILY HISTORY: Mother- TB. in 30's Father- colon cancer. 70s ALLERGIES: Please see below. HOME MEDICATIONS: Please see below. PHYSICAL EXAMINATION: VS: Please see below CONSTITUTIONAL: No acute distress, resting comfortably, AAO x 2 EYES: PERRLA, EOM intact HENT, MOUTH: Normocephalic, atraumatic, moist mucous membranes NECK: SUPPLE, no JVD, no lymphadenopathy, no carotid bruit CV: Regular rate and rhythm, S1S2 normal, no murmurs/rubs/gallops RESPIRATORY: Clear to auscultation bilaterally, no rales/rhonchi/wheezes GI: BS positive in 4 quadrants, soft, nontender, nondistended, no rebound or guarding, no organomegaly : Deferred MUSCULOSKELETAL: ROM at baesline for lower ext. No cyanosis, clubbing, swelling, joint deformity, extremity edema INTEGUMENTARY: 2 small Stage I ulcers on both buttocks, otherwise intact, no rashes, no lesions, no erythema NEUROLOGIC: Cranial Nerves II-XII are intact, no focal deficits PSYCHIATRIC: Mood and affect are normal, pleasantly confused at times LABORATORY DATA: Please see below IMAGING: CT head: No acute intracranial abnormalities CXR: Chronic changes ASSESSMENT:84-year-old male with past medical history of diabetes mellitus type 2, hypertension, dementia, glaucoma, hyperlipidemia, history of AAA, CKD stage unknown admitted to the hospital due to increased weakness, family unable to care for him at home. PLAN: Generalized weakness, worsening physical deconditioning per family -Family can no longer care for him at home, requiring more skilled care than 8 hrs weekly given by home health aids -Decreased appetite, incontinent of bowel and bladder -Not moving around much at home but has walker, decond -PT/OT -? dysphagia, swallowing evaluation ordered. Also ordered full nutritional assessment -Family would like placement at this time. PFS consulted to evaluate. HCP is niece, number above Diarrhea, chronic -Daughter states that this is likely due to fact that father eats only "soft" foods, a texture that she says he prefers -Will monitor for increased stool production, no recent hospitalization or abx use so will not order infectious workup -Adding probiotic and seeing what speech says about diet texture GI bleed, chronic? -No cyanosis, pallor -Per daughter this has been getting worked up for months -Was taken off ASA by PCP -REferral was being put in by PCP for either surgery or GI -H/H, although showing anemia at , not at transfusable range. -F/u daily CBC, hold AC. PPI BID. Not emergent need to consult surgery at this time. Watch for s/s of bleeding Dysphagia -Swallowing eval -Starting on soft diet for now UTI -Ucx pending, WBC wnl, afebrile, urinary incontinence -Ceftriaxone DM type II -ISS, FS AC/HS, consistent carb diet HTN -Stable -C/w home meds, low salt diet Dementia -Not off baseline, able to answer many questions but still forgetful at times -C/w home medications Glaucoma -C/w eye drops Hyperlipidemia -C/w statin AAA -F/u by PCP BPH -C/w tamsulosin GI px -PPI BID DVT px -SCD, teds DISPOSITION: Admitted as acute inpatient. Placement needed. PT/OT ordered. PFS consulted. Vital Signs Vital Signs Date Time Temp Pulse Resp B/P (MAP) Pulse Ox O2 Delivery O2 Flow Rate FiO2 03/24/20 13:42 Room Air 03/24/20 12:58 97.6 63 20 146/64 (91) 100 Laboratory Data Labs 24H Laboratory Tests 2 03/24/20 13:02: Immature Granulocyte % (Auto) 1.0, Neutrophils (%) (Auto) 53.3, Lymphocytes (%) (Auto) 29.1, Monocytes (%) (Auto) 12.0H, Eosinophils (%) (Auto) 3.7H, Basophils (%) (Auto) 0.9, Neutrophils # (Auto) 5.3, Lymphocytes # (Auto) 2.9, Monocytes # (Auto) 1.2H, Eosinophils # (Auto) 0.4, Basophils # (Auto) 0.1, Nucleated Red Blood Cells % (auto) 0.0, Ammonia 15 03/24/20 13:03: Anion Gap 5L, Glomerular Filtration Rate > 60.0, Osmolality 293, Lactic Acid Level 1.0, Calcium Level 8.6L, Total Bilirubin 0.4, Direct Bilirubin 0.1, Aspartate Amino Transf (AST/SGOT) 13, Alanine Aminotransferase (ALT/SGPT) 15, Alkaline Phosphatase 65, Total Creatine Kinase 20L, Creatine Kinase MB < 1.0, Creatine Kinase MB Relative Index 5.00H, Troponin I < 0.02, Total Protein 6.5, Albumin 2.5L, Albumin/Globulin Ratio 0.6, Thyroid Stimulating Hormone (TSH) 2.890, Valproic Acid (Depakene) Level 41.8L 03/24/20 13:41: Urine Color [place], Urine Appearance CLOUDYH, Urine pH 6.0, Urine Specific [place] 1.021, Urine Protein 1+H, Urine Glucose (UA) NEGATIVE, Urine Ketones TRACEH, Urine Blood NEGATIVE, Urine Nitrite NEGATIVE, Urine Bilirubin NEGATIVE, Urine Urobilinogen 0.2, Urine Leukocyte Esterase 1+H, Urine WBC (Auto) TNTCH, Urine RBC (Auto) 0, Urine Hyaline Casts (Auto) 0, Urine Bacteria (Auto) 3+H, Urine Squamous Epithelial Cells 0, Urine Mucus (Auto) SMALL, Urine Sperm (Auto) CBC/BMP Laboratory Tests 03/24/20 13:02 03/24/20 13:03 Microbiology Microbiology 03/24/20 Blood Culture, Received Pending 03/24/20 Urine Culture, Received Pending 03/24/20 Respiratory Virus Panel (PCR) ([facility]) - Final, Complete 03/24/20 Blood Culture, Received Pending Home Medications Scheduled Brimonidine Tartrate (Brimonidine Tartrate) 0.2 % Betty, 1 DROP OU TID Cetirizine HCl (Cetirizine HCl) 10 Mg Tablet, 10 MG PO QHS Divalproex Sodium (Divalproex Sodium ER) 500 Mg Tab.er.24h, 500 MG PO QHS Docusate Sodium (Docusate Sodium) 100 Mg Cap, 100 MG PO BID Finasteride (Finasteride) 5 Mg Tab, 5 MG PO QHS Furosemide (Furosemide) 40 Mg Tab, 40 MG PO DAILY Ketotifen Fumarate (Alaway) 0.025 % Seymour, 1 DROP OU BID L.acidoph/L.bulg/B.bif/S.therm (Bacid Caplet) 1 Tab Tab, 1 TAB PO QHS Latanoprost (Xalatan) 0.005% 2.5ML Drops, 1 DROP OU QHS Linagliptin (Tradjenta) 5 Mg Tab, 5 MG PO QHS Memantine HCl (Namenda) 10 Mg Tab, 10 MG PO BID Multivit-Min/FA/Lycopen/Lutein (Centrum Silver Ultra Men's Tab) 1 Each Tablet, 1 TAB PO DAILY Simvastatin (Zocor) 20 Mg Tab, 20 MG PO QHS Sodium Chloride (Sodium Chloride) 1 Gm Tablet, 1 GM PO DAILY Tamsulosin HCl (Flomax) 0.4 Mg Cap, 0.4 MG PO QHS Timolol Maleate (Timolol Maleate) 0.25% Betty.gel, 1 DROP OU DAILY Scheduled PRN Propylene Glycol/Peg 400 (Lubricating Eye Drop) 15 Ml Drops, 1 DROP OU QID PRN for DRY EYES Sodium Chloride (Saline Nasal [place]) 88 Ml [place], 1 SPRAY NARES QID PRN for NASAL CONGESTION Allergies Coded Allergies: SEASONAL ALLERGIES (Verified Allergy, Unknown, 06/04/19) EDUARDO Inhibitors (Verified Adverse Reaction, Unknown, "sick", 05/15/19) A-FIB/CHADSVASC A-FIB History Current/History of A-Fib/PAF?: No Current PO Anticoag Therapy: No Age/Risk Factor Scoring CHADSVASC: CHADSVASC Response (Comments) Value Age Risk Factor Age >/= 75 years old 2 Gender Risk Factor Male 0 Hx of CHF No 0 Hx of HTN Yes 1 Hx of Stroke/TIA/or VTE No 0 Hx of Diabetes Yes 1 Hx of Vascular Disease No 0 Total 4 Treatment Treatment ordered: Other Other anticoagulant ordered: scd Gay Faustin MD Mar 24, 2020 15:33
[2020-03-24] MEDS ORDERED: DIVA500T9 PO (15:53)
[2020-03-24] MEDS ORDERED: PROP15DR12 OU (15:54)
--- OUTSIDE RECORDS SUMMARY | 2020-03-24 16:13 | CCD ---
Author Author [facility] Organization [facility] Address Unknown Phone Unavailable Care Team Providers Care Geothermal Hvac Technician Name Role Phone Ron ANTONIO DPM [facility] [...] MARISELA, J ALFONSO DPM PC Unavailable Unavailable Fish, J Ga [...] Unavailable Teresa Waterman MD Unavailable Unavailable Teresa Watermna MD Unavailable Unavailable Teresa Waterman MD Unavailable [...] is protected by Article 27-F of the [facility] Public Health law. If you continue you may have access to information: Regarding HIV / AIDS; Provided by facilities licensed or operated by the [facility] Office of Mental Health; or Provided by the [facility] Office for People With Developmental Disabilities. If such information is present, then the following [facility] mandated warning applies: This information has [...] law may result in a fine or shelter sentence or both. A general authorization for the release of medical or other information is NOT sufficient authorization for further disc losure. Allergies and Adverse Reactions Type Description Substance Reaction Status Data Source(s ) Drug allergy Amiloride HCl Amiloride Rash Active eCW1 ([facility]) Family History Family Member Name Family Member Gender Family Member Status Date o f Status Description Data Source(s) Unknown Male Problem MEDENT ([facility] Encounters Encounter Providers Location Date Indications Data Source(s ) Office Visit Attender: Teresa Waterman MD Main office - [place] 01/26/2020 11:15:00 AM EST MEDENT ([facility] DAVID Sapp) [place] [address] [place] [address] 01/21/2020 12:00:00 AM EST eCW1 ([facility]) Outpatient Attender: ALFONSO ANTONIO DPM PCConsultant: Vero Jade 01/19/2020 12:55:00 PM EST - 01/13/2020 12:55:00 PM EST [facility] Patient discharged. [place] [address] [place] [address] 12/22/2019 12:00:00 AM EDT eCW1 ([facility]) Outpatient Attender: ALFONSO ANTONIO DPM 10/28/2019 03:32:00 PM EDT - 10/28/2019 03:32:00 PM EDT [facility] Outpatient [address] [place] [address] 09/14/2019 12:00:00 AM EDT eCW1 ([facility]) [facility] [place] [address] [place] [address] 09/01/2019 12:00:00 AM EDT eCW1 ([facility]) Office Visit Attender: Teresa Waterman MD Main office - [place] 08/26/2019 12:45:00 PM EDT MEDENT ([facility] ) Outpatient Attender: ALFONSO ANTONIO DPM PCConsultant: Vero Jade 08/19/2019 03:25:00 PM EDT - 08/19/2019 03:25:00 PM EDT [facility] [place] [address] [place] [address] 08/06/2019 12:00:00 AM EDT eCW1 ([facility]) [facility] [place] [address] [place] [address] 07/15/2019 12:00:00 AM EDT eCW1 ([facility]) [facility] [place] [address] [address] 07/08/2019 12:00:00 AM EDT eCW1 ([facility]) [facility] [address] [place] [address] 07/06/2019 12:00:00 AM EDT eCW1 ([facility]) [facility] [address] [place] [address] 07/01/2019 12:00:00 AM EDT eCW1 ([facility]) [facility] [address] [place] [address] 06/29/2019 12:00:00 AM EDT eCW1 ([facility]) [facility] [address] [place] [address] 06/22/2019 12:00:00 AM EDT eCW1 ([facility]) [facility] [address] [place] [address] 06/17/2019 12:00:00 AM EDT eCW1 ([facility]) [facility] [address] [place] [address] 06/12/2019 12:00:00 AM EDT eCW1 ([facility]) Outpatient Attender: ALFONSO ANTONIO DPM PCConsultant: Vero Jade 06/10/2019 03:28:00 PM EDT - 06/10/2019 03:28:00 PM EDT [facility] [address] [place] [address] 06/09/2019 12:00:00 AM EDT eCW1 ([facility]) [facility] [address] [place] [address] [address] 06/08/2019 12:00:00 AM EDT eCW1 ([facility]) [facility] [address] [place] [address] [address] 06/04/2019 12:00:00 AM EDT eCW1 ([facility]) [facility] [address] [place] [address] 05/21/2019 12:00:00 AM EDT eCW1 ([facility]) [facility] [address] [place] [address] 05/21/2019 12:00:00 AM EDT eCW1 ([facility]) [facility] [address] [place] [address] 04/09/2019 12:00:00 AM EST eCW1 ([facility]) Outpatient Attender: ALFONSO ANTONIO DPM 04/01/2019 09:18:00 AM EST - 04/01/2019 09:18:00 AM EST [facility] [address] [place] [address] [address] 03/20/2019 12:00:00 AM EST eCW1 ([facility]) [facility] [address] [place] [address], [place] [address] 03/13/2019 12:00:00 AM EST eCW1 ([facility]) [facility] [address] [place] [address], [place] [address] 03/13/2019 12:00:00 AM EST eCW1 ([facility]) [facility] [address] [place] [address], [place] [address] 02/26/2019 12:00:00 AM EST eCW1 ([facility]) [facility] [address] [place] [address], [place] [address] 02/26/2019 12:00:00 AM EST eCW1 ([facility]) [facility] [address] [place] [address] 02/24/2019 12:00:00 AM EST eCW1 ([facility]) Outpatient Attender: ALFONSO ANTONIO DPM PCConsultant: Vero cheatham Fish 01/27/2019 03:42:00 PM EST - 01/27/2019 03:42:00 PM [facility] Immunizations Vaccine Date Status Description Data Source(s) influenza, recombinant, quadrIvalent,injectable, prese rvative free 12/22/2019 03:23:00 PM EDT completed eCW1 ([facility]) influenza, recombinant, quadrIvalent,injectable, prese rvative free 12/22/2019 03:23:00 PM EDT completed eCW1 ([facility]) Medications Medication Brand Name Start Date Product Form Dose Route Admi nistrative Instructions Pharmacy Instructions Status Indications Reaction Description Data Source(s) 24 HR Divalproex Sodium 500 MG Extended Release Oral T ablet Divalproex Sodium ER 08/26/2019 12:00:00 AM EDT ORAL active MEDENT ([facility], ) OneTouch Ultra 2 w/Device OneTouch [...] MG/MG Ophthalmic Gel RENA ([facility] G[facility]) Brimonidine tartrate 2 MG/ML Ophthalmic Solution Brimonidine Tartrate 0.2% Ophthalmic Solution Brimonidine Tartrate 0.2% Ophthalmic Solution 07/08/19 19 12:00:00 AM EDT active Brimonidine tartrate 2 MG/ML Ophthalmic Solution RENA ([facility]) Insurance Providers Payer name Policy type / Coverage type Policy ID Covered libertarian ID Covered libertarian's relationship to eckert Policy Eckert Plan Information MEDICARE [id number] SP [id number] [facility] [id number] SP [id number] [facility] [id number] SP [id number] MEDICAID -PHYSICIAN [id number] MEDICAID [id number] [facility] [id number] 18 [id number] MEDICARE PART A [facility] [id number] 18 [id number] [facility] [id number] SP [id number] [employer]IONS [id number] SP [id number] [employer] [place] Other 0 Self 0 Medicare Part B [facility] Other 0 Se lf 0 [place]NA HOMECARE OPTIONS [id number] SP [id number] ANSI-Commercial [id number] ANSI-Medicare Part B [id number] ANSI-Commercial [id number] ANSI-Medicare Part B [id number] ANSI-Medicare Part B [id number] ANSI-Commercial [id number] ANSI-Commercial [id number] ANSI-Medicare Part B [id number] ANSI-Medicare Part B [id number] ANSI-Commercial [id number] ANSI-Commercial [id number] ANSI-Medicare Part B [id number] ANSI-Medicare Part B [id number] ANSI-Commercial [id number] MEDICARE [id number] SP [id number] ANSI-Commercial [id number] ANSI-Medicare Part B [id number] ANSI-Commercial [id number] ANSI-Medicare Part B [id number] ANSI-Medicare Part B [id number] ANSI-Commercial [id number] MEDICAID [id number] SP [id number] [facility] [id number] SP [id number] MEDICARE [id number] SP [id number] ANSI-Medicare Part B [id number] ANSI-Commercial [id number] MEDICARE [id number] SP [id number] A ANSI-Commercial [id number] ANSI-Medicare Part B [id number] MEDICAID [id number] SP [id number] VNA HOMECARE OPTIONS [id number] SP [id number] [facility] [id number] SP [id number] Medicare Part B of [facility] Other 0 Se lf 0 Medicare Part B of [facility] Other 0 Se lf 0 Medicare Part B of [facility] Other 0 Se lf 0 Medicare Part B of [facility] Other 0 Se lf 0 Medicare Part B of [facility] Other 0 Se lf 0 Medicare Part B of [facility] Other 0 Se lf 0 Medicare Part B of [facility] Other 0 Se lf 0 Medicare Part B of [facility] Other 0 Se lf 0 Medicare Part B of [facility] Other 0 Se lf 0 Medicare Part B of [place] Other 0 Se lf 0 Medicaid Medigap Part B [id number] Self [id number] Medicare Medicare Primary [id number] Self 05 [id number] [place] Medigap Part B [id number] Self [id number] MEDICARE [id number] SP [id number] A [facility] [id number] SP [id number] MEDICARE PART A [id number] Patient [id number] MEDICARE C [id number] S [id number] A MEDICAID M [id number] S [id number] [place] PPO O [id number] S [id number] Medicaid Medigap Part B [id number] Self [id number] Medicare Medicare Primary [id number] Self 05 [id number] [employer] O [id number] S [id number] MEDICAID-O/P [id number] 18 [id number] [place]-O/P [id number] 18 [id number] [employer] MEDICARE O/P [id number] 18 [id number] MEDICARE COMPLETE [id number] SP [id number] [id number] SP [id number] [employer] MEDICARE-O/P [id number] 18 [id number] A [id number] Problems, Conditions, and Diagnoses Code Display Name Description Problem Type Effective Dates Data Source(s) R56.9 [id number] Seizure Problem 09/19/2019 12:00:00 AM ED T eCW1 ([facility]) K59.00 99003791 Constipation, unspecified constipation ty pe Problem 09/14/2019 12:00:00 AM EDT eCW1 ([facility]) I10 [id number] Hypertension, unspecified type Problem 07/13 12:00:00 AM EDT eCW1 ([facility]) I10 [id number] Hypertension, unspecified type Problem 07/13 12:00:00 AM EDT eCW1 ([facility]) E78.5 Dyslipidemia Dyslipidemia Problem 07/08/2019 12:00:00 A M EDT eCW1 ([facility]) E78.5 Dyslipidemia Dyslipidemia Problem 07/08/2019 12:00:00 A M EDT eCW1 ([facility]) D50.9 [id number] Iron deficiency anemia, unspecif ied iron deficiency anemia type Problem 04/09/2019 12:00:00 AM EST eCW1 ([facility]) D50.9 [id number] Iron deficiency anemia, unspecif ied iron deficiency anemia type Problem 04/09/2019 12:00:00 AM EST eCW1 ([facility]) R601 Generalized edema Generalized edema Diagnosis 01/13/2020 12:55:00 PM [facility] F49598 Pain in left foot Pain in left foot Diagnosis 01/13/2020 12:55:00 PM [facility] E82687 Pain in right foot Pain in right foot Diagnosis 06/2019 12:55:00 PM [facility] L84 Corns and callosities Corns and callosities Diagnosis 01/13/2020 12:55:00 PM [facility] B351 Tinea unguium Tinea unguium Diagnosis 01/13/2020 12:55:00 PM [facility] E1151 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 2 diabetes mellitus with diabetic p eripheral angiopathy without gangrene Diagnosis 01/13/2020 12:55:00 PM [facility] Surgeries/Procedures Procedure Description Date Indications Data Source(s) Immunization: Flublok Quadrivalent (18 years & older) 0.5mL IM (Influenza) 12/22/2019 12:00:00 AM EDT eCW1 ([facility]) Pare Hyperkeratotic Lesion, 2-4 10/28/2019 12:00:00 AM EDT MEDENT ([facility]) Debridement Nails Any Method 6 Or More 10/28/2019 12:0 0:00 AM EDT MEDENT ([facility]) Pare Hyperkeratotic Lesion, 2-4 08/19/2019 12:00:00 AM EDT MEDENT ([facility]) Debridement Nails Any Method 6 Or More 08/19/2019 12:0 0:00 AM EDT MEDENT ([facility]) Pare Hyperkeratotic Lesion, 2-4 06/10/2019 12:00:00 AM EDT MEDENT ([facility]) Debridement Nails Any Method 6 Or More 06/10/2019 12:0 0:00 AM EDT MEDENT ([facility]) TRANS CARE MGMT 7 DAY DISCH 06/09/2019 [...] Lesion, 2-4 04/01/2019 12:00:00 AM EST MEDENT ([facility]) Debridement Nails Any Method 6 Or More 04/01/2019 12:0 0:00 AM EST MEDENT ([facility]) Colorectal cancer screening; fecal occul t blood test, immunoassay, 1-3 simultaneous 03/13/2019 12:00:00 AM EST eCW1 ([facility]) Office Visit, Est Pt., Level 4 PC 02/26/2019 12:00:00 AM EST eCW1 ([facility]) Pare Hyperkeratotic Lesion, 2-4 01/27/2019 12:00:00 AM EST MEDENT ([facility]) Debridement Nails Any Method 6 Or More 01/27/2019 12:0 0:00 AM EST MEDENT ([facility]) Results ID Date Data Source [id number] 07/09/2019 12:00:00 AM EDT eCW1 ([facility]) Name Value Range Interpretation Code Description Data [...] Supporting Document(s) 103 70-100 GLUCOSE, FASTING eCW1 ([facility]) 0.77 0.70-1.30 CREATININE FOR GFR eCW1 ([facility]) 23 7-18 BLOOD UREA NITROGEN eCW1 ([facility]) > 60.0 >35 GLOMERULAR FILTRATION RATE eCW 1 ([facility]) 136 136-145 SODIUM LEVEL eCW1 ([facility]) 3.9 3.5-5.1 POTASSIUM SERUM eCW1 ([facility]) 99 98-107 CHLORIDE LEVEL eCW1 ([facility]) 30 21-32 CARBON DIOXIDE LEVEL eCW1 ([facility]) 8.8 8.8-10.2 CALCIUM LEVEL eCW1 [facility]) 3.000 <5 CHOLESTEROL RISK RATIO eCW1 ([facility]) 70 NON-HDL-C eCW1 ([facility]) ID Date Data Source [id number] 07/08/2019 12:00:00 AM EDT eCW1 ([facility]) Name Value Range Interpretation Code Description Data Shabana rce(s) Supporting Document(s) Hemoglobin A1c/Hemoglobin.total in Blood 6.7 HEMOGLOBIN A1c eCW1 ([facility]) ID Date Data Source CBC with Differential 07/08/2019 12:00:00 AM EDT eCW1 ([facility]) Name Value Range Interpretation Code Description Data Shabana rce(s) Supporting Document(s) 4.77 4.30-6.10 RED BLOOD COUNT eCW1 ([facility]) 10.8 4.0-10.0 WHITE BLOOD COUNT eCW1 ([facility]) 89.5 80.0-96.0 MEAN CORPUSCULAR VOLUME e CW1 [...] [facility]) 3.1 0.0-3.0 EOS % eCW1 ([facility]) 14.0 0.0-5.0 MONO % eCW1 ([facility]) 26.5 24.0-44.0 LYMPH % eCW1 ([facility]) 55.2 36.0-66.0 NEUTROPHILS % eCW1 ([facility]) 6.0 1.5-8.5 NEUTROPHILS # eCW1 ([facility]) 0.6 0.0-1.0 BASO % eCW1 ([facility]) 1.5 0.0-0.8 MONO # eCW1 ([facility]) 2.9 1.5-5.0 LYMPH # eCW1 ([facility]) 0.3 0.0-0.5 EOS # eCW1 ([facility]) 0.1 0.0-0.2 BASO # eCW1 ([facility]) ID Date Data Source TOTAL IRON BINDING CAPACIT 02/26/2019 12:00:00 AM EST eCW1 ( [facility]) Name Value Range Interpretation Code Description Data Shabana rce(s) Supporting Document(s) 52 65-175 IRON (FE) eCW1 ([facility]) 19.8 19.7-50.0 PERCENT SATURATION eCW1 ([facility]) 262 250-450 TOTAL IRON BINDING CAPACI TY eCW1 ([facility]) ID Date Data Source FERRITIN 02/26/2019 12:00:00 AM EST eCW1 ([facility]) Name Value Range Interpretation Code Description Data Shabana rce(s) Supporting Document(s) 62 68-388 FERRITIN eCW1 ([facility]) Procedure Social History Code Duration Value Status Description Data Source(s ) Smoking 01/13/2020 12:00:00 AM EST Never Smoked A Pipe complet ed Never Smoked A Pipe MEDENT ([facility]) Smoking 12/22/2019 12:00:00 AM EDT Never Smoker [...] Respiratory rate 18 /min 18 /min eCW1 ([facility]) Heart rate 60 /min 60 /min eCW1 ([facility]) Body mass index (BMI) [Ratio] 22.43 kg/m2 22.43 kg/m2 eCW1 ([facility]) Body height 73 [in_i] 73 [in_i] eCW1 ([facility]) Body weight 170 [lb_av] 170 [lb_av] eCW1 ([facility]) Diastolic blood pressure 71 mm[Hg] 71 mm[Hg] eCW1 ([facility]) Systolic blood pressure 135 mm[Hg] 135 mm[Hg] e CW1 ([facility]) Body temperature 97.8 [degF] 97.8 [degF] eCW1 ( [facility]) Respiratory rate 18 /min 18 /min eCW1 ([facility]) Heart rate 68 /min 68 /min eCW1 ([facility]) Body mass index (BMI) [Ratio] 22.95 kg/m2 22.95 kg/m2 eCW1 ([facility]) Body height 73 [in_i] 73 [in_i] eCW1 ([facility]) Body weight 174 [lb_av] 174 [lb_av] eCW1 ([facility]) Diastolic blood pressure 71 mm[Hg] 71 mm[Hg] eCW1 ([facility]) Systolic blood pressure 163 mm[Hg] 163 mm[Hg] e CW1 ([facility]) Body temperature 97.1 [degF] 97.1 [degF] eCW1 ( [facility]) Respiratory rate 18 /min 18 /min eCW1 ([facility]) Heart rate 60 /min 60 /min eCW1 ([facility]) Body mass index (BMI) [Ratio] 23.61 kg/m2 23.61 kg/m2 eCW1 ([facility]) Body height 73 [in_us] 73 [in_us] eCW1 ([facility]) Body weight Measured 179 [lb_av] 179 [lb_av] eC W1 ([facility]) Diastolic blood pressure 72 mm[Hg] 72 mm[Hg] eCW1 ([facility]) Systolic blood pressure 130 mm[Hg] 130 mm[Hg] e CW1 ([facility]) Body temperature 97.2 [degF] 97.2 [degF] eCW1 ( [facility]) Respiratory rate 18 /min 18 /min eCW1 ([facility]) Heart rate 60 /min 60 /min eCW1 ([facility]) Body mass index (BMI) [Ratio] 23.75 kg/m2 23.75 kg/m2 eCW1 ([facility]) Body height 73 [in_us] 73 [in_us] eCW1 ([facility]) Body weight Measured 180 [lb_av] 180 [lb_av] eC W1 ([facility]) Diastolic blood pressure 76 mm[Hg] 76 mm[Hg] eCW1 ([facility]) Systolic blood pressure 142 mm[Hg] 142 mm[Hg] e CW1 ([facility]) Body temperature 99.1 [degF] 99.1 [degF] eCW1 ( [facility]) Respiratory rate 18 /min 18 /min eCW1 ([facility]) Heart rate 60 /min 60 /min eCW1 ([facility]) Body mass index (BMI) [Ratio] 24.01 kg/m2 24.01 kg/m2 eCW1 ([facility]) Body height 73 [in_us] 73 [in_us] eCW1 ([facility]) Body weight Measured 182 [lb_av] 182 [lb_av] eC W1 ([facility]) Diastolic blood pressure 65 mm[Hg] 65 mm[Hg] eCW1 ([facility]) Systolic blood pressure 136 mm[Hg] 136 mm[Hg] e CW1 ([facility]) Body temperature 97.3 [degF] 97.3 [degF] eCW1 ( [facility]) Respiratory rate 17 /min 17 /min eCW1 ([facility]) Heart rate 64 /min 64 /min eCW1 ([facility]) Body mass index (BMI) [Ratio] 25.09 kg/m2 25.09 kg/m2 eCW1 ([facility]) Body height 73 [in_us] 73 [in_us] eCW1 ([facility]) Body weight Measured 190.2 [lb_av] 190.2 [lb_av ] eCW1 ([facility]) Diastolic blood pressure 55 mm[Hg] 55 mm[Hg] eCW1 ([facility]) Systolic blood pressure 91 mm[Hg] 91 mm[Hg] e CW1 ([facility]) Body temperature 97.8 [degF] 97.8 [degF] eCW1 ( [facility]) Respiratory rate 17 /min 17 /min eCW1 ([facility]) Heart rate 101 /min 101 /min eCW1 ([facility]) Body mass index (BMI) [Ratio] 25.65 kg/m2 25.65 kg/m2 eCW1 ([facility]) Body height 73 [in_us] 73 [in_us] eCW1 ([facility]) Body weight Measured 194.4 [lb_av] 194.4 [lb_av ] eCW1 ([facility]) Patient Treatment Plan of Care Planned Activity Planned Date Details Description Data Source (s) [employer] GuideTouch Ultra 2 w/Device 08/06/2019 12:00:00 AM EDT eCW1 ([facility]) Timolol 0.005 MG/MG Ophthalmic Gel 07/10/2018 12:00:00 AM EDT RENA (Emile Gao MD [facility]) Brimonidine tartrate 2 MG/ML Ophthalmic Solution 07/07/2018 12:00:0 0 AM EDT RENA (Emile Gao MD [facility])
[2020-03-24] MEDS ORDERED: SODIUM CHLORIDE NASAL 0.65% SPRAY BTL (OCEAN) PRN (16:30)
[2020-03-24] MEDS ORDERED: POLYVINYL ALCOHOL OPHTH SOLN 15 ML(LIQUITEARS) OU PRN (16:30)
--- NOTE | 2020-03-24 16:42 | ECGEPIP ---
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
[2020-03-24] MEDS ORDERED: DEXTROSE 50% 50 ML SYRINGE IV PRN (16:45)
[2020-03-24] MEDS ORDERED: GLUCOSE 4GM CHEW TABLET PO PRN (16:45)
[2020-03-24] MEDS ORDERED: GLUCAGON INJ 1MG VIAL SC PRN (16:45)
[2020-03-24] MEDS: HumaLOG INSULIN (NovoLOG) PER UNIT SC SCH ×2 (17:30→20:35)
[2020-03-24 20:27] VITALS: BP 104/83
[2020-03-24] MEDS: LACTOBACILLUS ACIDOPHILUS CAP (BACID) PO SCH (20:33)
[2020-03-24] MEDS: FINASTERIDE 5 MG TAB PO SCH (20:33)
[2020-03-24] MEDS: DIVALPROEX 500MG *ER* TAB PO SCH (20:33)
[2020-03-24] MEDS: SIMVASTATIN 20 MG TAB PO SCH (20:33)
[2020-03-24] MEDS: PANTOPRAZOLE 40MG TAB (PROTONIX) PO SCH (20:34)
[2020-03-24] MEDS: MEMANTINE 5MG TABLET (NAMENDA) PO SCH (20:34)
[2020-03-24] MEDS: TAMSULOSIN 0.4 MG CAP PO SCH (20:34)
[2020-03-24] MEDS: BRIMONIDINE 0.15% OPHTH SOLN 5 ML OU SCH (20:34)
[2020-03-24] MEDS: CETIRIZINE (ZyrTEC) 10 MG TAB PO SCH (20:34)
[2020-03-24] MEDS: LATANOPROST 0.005% OPHTH SOLN 2.5 ML OU SCH (20:35)
[2020-03-25 05:58] VITALS: BP 123/51
[2020-03-25 06:24] LABS: HEMATOCRIT 34.2 % (42.0-52.0); HEMOGLOBIN 10.6 g/dl (13.5-17.5); MEAN CORPUSCULAR HEMOGLOBIN 27.1 pg (27.0-33.0); MEAN CORPUSCULAR VOLUME 87.5 fl (80.0-96.0); PLATELET COUNT, AUTOMATED 233 10^3/uL (150-450); RED BLOOD COUNT 3.91 10^6/uL (4.30-6.10); WHITE BLOOD COUNT 9.3 10^3/uL (4.0-10.0)
[2020-03-25 06:55] LABS: ALBUMIN 2.2 GM/DL (3.2-5.2); ALT/SGPT 13 U/L (12-78); BILIRUBIN,TOTAL 0.4 MG/DL (0.2-1.0); BLOOD UREA NITROGEN 18 MG/DL (7-18); CALCIUM LEVEL 8.1 MG/DL (8.8-10.2); CARBON DIOXIDE LEVEL 32 MEQ/L (21-32); CHLORIDE LEVEL 100 MEQ/L (98-107); CREATININE FOR GFR 0.62 MG/DL (0.70-1.30); GLOMERULAR FILTRATION RATE > 60.0 (>35); GLUCOSE, FASTING 126 MG/DL (70-100); POTASSIUM SERUM 3.8 MEQ/L (3.5-5.1); SODIUM LEVEL 139 MEQ/L (136-145); TOTAL PROTEIN 6.2 GM/DL (6.4-8.2)
[2020-03-25] MEDS: FUROSEMIDE 40 MG TAB PO SCH (08:57)
[2020-03-25] MEDS: MEMANTINE 5MG TABLET (NAMENDA) PO SCH ×2 (08:57→21:30)
[2020-03-25] MEDS: MULTIVITAMINS/MINERALS THERAP 1 TAB PO SCH (08:58)
[2020-03-25] MEDS: PANTOPRAZOLE 40MG TAB (PROTONIX) PO SCH ×2 (08:58→21:30)
[2020-03-25] MEDS: HumaLOG INSULIN (NovoLOG) PER UNIT SC SCH ×4 (08:58→21:00)
[2020-03-25] MEDS: OLOPATADINE 0.1% OPHTH SOL 5ML(PATANOL) OU SCH ×2 (08:59→16:54)
[2020-03-25] MEDS: BRIMONIDINE 0.15% OPHTH SOLN 5 ML OU SCH ×3 (08:59→21:31)
[2020-03-25] MEDS: TIMOLOL MALEATE 0.25% OPHTH SOLN 5 ML OU SCH (08:59)
[2020-03-25] MEDS: SODIUM CHLORIDE 1 GM TAB PO SCH (13:37)
[2020-03-25 14:00] VITALS: BP 141/77
[2020-03-25] MEDS ORDERED: cefTRIAXone SOD 1 GM in D5W MINI-BAG PLUS 50 ML IV SCH (16:00)
--- NOTE | 2020-03-25 17:48 | IPNPDOC ---
Date Seen The patient was seen on 03/25/20. Progress Note SUBJECTIVE: No events overnight. Labs stable, UCx pending. OBJECTIVE PHYSICAL EXAMINATION: VS: Please see below CONSTITUTIONAL: No acute distress, resting comfortably, AAO x 2 EYES: PERRLA, EOM intact HENT, MOUTH: Normocephalic, atraumatic, moist mucous membranes NECK: SUPPLE, no JVD, no lymphadenopathy, no carotid bruit CV: Regular rate and rhythm, S1S2 normal, no murmurs/rubs/gallops RESPIRATORY: Clear to auscultation bilaterally, no rales/rhonchi/wheezes GI: BS positive in 4 quadrants, soft, nontender, nondistended, no rebound or guarding, no organomegaly : Deferred [facility]OS[facility]. No cyanosis, clubbing, swelling, joint deformity, extremity edema INTEGUMENTARY: 2 small Stage I ulcers on both buttocks, otherwise intact, no rashes, no lesions, no erythema NEUROLOGIC: Cranial Nerves II-XII are intact, no focal deficits PSYCHIATRIC: Mood and affect are normal, pleasantly confused at times LABORATORY DATA: Please see below IMAGING: CT head: No acute intracranial abnormalities CXR: Chronic changes ASSESSMENT:84-year-old male with past medical history of diabetes mellitus type 2, hypertension, dementia, glaucoma, hyperlipidemia, history of AAA, CKD stage unknown admitted to the hospital due to increased weakness, family unable to care for him at home. PLAN: Generalized weakness, worsening physical deconditioning per family -Family can no longer care for him at home, requiring more skilled care than 8 hrs weekly given by home health aids -Decreased appetite, incontinent of bowel and bladder -Not moving around much at home but has walker, decond -PT: Pt is limited by cognitive deficits, stating he does not use a RW, however reaching for RW once standing to mobilize. Pt currently requires Min A for mobility and based on family reporting recent decline in function/strength, recommend cont rehab at D/C. -Family would like placement at this time. PFS consulted. HCP is niece, number above. Updated her this AM. Diarrhea/soft stool, chronic -1 stool since admission -Daughter states that this is likely due to fact that father eats only "soft" foods, a texture that she says he prefers -Will monitor for increased stool production, no recent hospitalization or abx use so will not order infectious workup -Adding probiotic -Speech therapy: thin liquids, pureed foods GI bleed, chronic? -No cyanosis, pallor -Occult blood ordered -Per daughter this has been getting worked up for months -Was taken off ASA by PCP -Referral was being put in by PCP for either surgery or GI -H/H not at transfusable range. -F/u daily CBC, hold AC. PPI BID. Not emergent need to consult surgery at this time. Watch for s/s of bleeding Dysphagia -Swallowing eval: c/w thin liquids, pureed diet UTI -Ucx pending, WBC wnl, afebrile, urinary incontinence -D/c ceftriaxone, switched to ceftin 500 mg PO BID x 5 days DM type II -ISS, FS AC/HS, consistent carb diet HTN -Stable -C/w home meds, low salt diet Dementia -Not off baseline, able to answer many questions but still forgetful at times -C/w home medications Glaucoma -C/w eye drops Hyperlipidemia -C/w statin AAA -F/u by PCP BPH -C/w tamsulosin GI px -PPI BID DVT px -SCD, teds DISPOSITION: Placement needed. PT/OT ordered. PFS consulted. Made ALC today VS, I&O, 24H, Fishbone Vital Signs/I&O Vital Signs Date Time Temp Pulse Resp B/P (MAP) Pulse Ox O2 Delivery O2 Flow Rate FiO2 03/25/20 14:00 96.4 80 18 141/77 (98) 96 Room Air I&O- Last 24 Hours up to 6 AM 03/25/20 06:00 Intake Total 60 ml Output Total 100 ml Balance -40 ml Laboratory Data 24H LABS Laboratory Tests 2 03/24/20 18:31: Bedside Glucose (Misc Panel) 148H 03/24/20 20:34: Bedside Glucose (Misc Panel) 154H 03/25/20 05:56: Nucleated Red Blood Cells % (auto) 0.0, Anion Gap 7L, Glomerular Filtration Rate > 60.0, Calcium Level 8.1L, Total Bilirubin 0.4, Aspartate Amino Transf (AST/SG OT) 13, Alanine Aminotransferase (ALT/SGPT) 13, Alkaline Phosphatase 63, Total Protein 6.2L, Albumin 2.2L, Albumin/Globulin Ratio 0.6 03/25/20 12:15: Bedside Glucose (Misc Panel) 205H 03/25/20 16:53: Bedside Glucose (Misc Panel) 102 CBC/BMP Laboratory Tests 03/25/20 05:56 Microbiology Microbiology 03/24/20 Blood Culture - Preliminary, Resulted No growth after 24 hours . All specim... 03/24/20 Urine Culture, Received Pending 03/24/20 Respiratory Virus Panel (PCR) (ALEKSANDAR) - Final, Complete 03/24/20 Blood Culture - Preliminary, Resulted No growth after 24 hours . All specim... Current Medications Current Medications Medications (Trade) Dose Ordered Sig/Natalya Route PRN Reason Start Time Stop Time Status Last Admin Dose Admin Artificial Tears (Akwa Tears) 2 drop QIDP PRN OU DRY EYES 03/24/20 16:30 Brimonidine Tartrate (Alphagan P 0.15%) 1 drop TID OU 03/24/20 21:00 03/25/20 16:54 Ceftriaxone Sodium 1 gm/ Dextrose 50 ml @ 100 mls/hr Q24H IV 03/25/20 16:00 03/25/20 16:53 Cetirizine HCl (ZyrTEC) 10 mg QHS PO 03/24/20 21:00 03/24/20 20:34 Dextrose (Dextrose 50%) 25 ml ASDIRECTED PRN IV SEE LABEL COMMENTS 03/24/20 16:45 Divalproex Sodium (Depakote Er) 500 mg QHS PO 03/24/20 21:00 03/24/20 20:33 Finasteride (Proscar) 5 mg QHS PO 03/24/20 21:00 03/24/20 20:33 Furosemide (Lasix) 40 mg DAILY PO 03/25/20 09:00 03/25/20 08:57 Glucagon (Glucagon) 1 mg ASDIRECTED PRN SC SEE LABEL COMMENTS 03/24/20 16:45 Glucose (Glucose) 16 GM ASDIRECTED PRN PO SEE LABEL COMMENTS 03/24/20 16:45 Home Med (Med Rec Complete!) ASDIRECTED XX 03/24/20 16:00 03/24/20 15:57 DC Insulin Human Lispro (HumaLOG INSULIN) SEE PROTOCOL TABLE AC SC 03/24/20 17:30 03/25/20 13:35 Insulin Human Lispro (HumaLOG INSULIN) SEE PROTOCOL TABLE QHS SC 03/24/20 21:00 Lactobacillus Acidophilus (Bacid) 1 ea QHS PO 03/24/20 21:00 03/24/20 20:33 Latanoprost (Xalatan 0.005% Op Soln) 1 drop QHS OU 03/24/20 21:00 03/24/20 20:35 Memantine (Namenda) 10 mg BID PO 03/24/20 21:00 03/25/20 08:57 Multivitamins (Theragram-M) 1 tab DAILY PO 03/25/20 09:00 03/25/20 08:58 Olopatadine HCl (Patanol) 1 drop BID@09,17 OU 03/25/20 09:00 03/25/20 16:54 Pantoprazole Sodium (Protonix) 40 mg BID PO 03/24/20 21:00 03/25/20 08:58 Simvastatin (Zocor) 20 mg QHS PO 03/24/20 21:00 03/24/20 20:33 Sodium Chloride ([place] Nasal [place]frey) 1 spray QIDP PRN NA NASAL CONGESTION 03/24/20 16:30 Sodium Chloride (Sodium Chloride) 1 gm DAILY PO 03/25/20 09:00 03/25/20 13:37 Tamsulosin HCl (Flomax) 0.4 mg QHS PO 03/24/20 21:00 03/24/20 20:34 Timolol Maleate (Timoptic 0.25% Ophth Betty) 1 drop DAILY OU 03/25/20 09:00 03/25/20 08:59 Allergies Coded Allergies: SEASONAL ALLERGIES (Verified Allergy, Unknown, 06/04/19) EDUARDO Inhibitors (Verified Adverse Reaction, Unknown, "sick", 05/15/19) Gay Faustin MD Mar 25, 2020 17:48
[2020-03-25 20:17] VITALS: BP 102/59
[2020-03-25] MEDS: LACTOBACILLUS ACIDOPHILUS CAP (BACID) PO SCH (21:30)
[2020-03-25] MEDS: FINASTERIDE 5 MG TAB PO SCH (21:30)
[2020-03-25] MEDS: DIVALPROEX 500MG *ER* TAB PO SCH (21:30)
[2020-03-25] MEDS: TAMSULOSIN 0.4 MG CAP PO SCH (21:30)
[2020-03-25] MEDS: CETIRIZINE (ZyrTEC) 10 MG TAB PO SCH (21:30)
[2020-03-25] MEDS: SIMVASTATIN 20 MG TAB PO SCH (21:30)
[2020-03-25] MEDS: LATANOPROST 0.005% OPHTH SOLN 2.5 ML OU SCH (21:31)
[2020-03-26 06:00] VITALS: BP 104/54
[2020-03-26 06:51] LABS: HEMATOCRIT 33.2 % (42.0-52.0); HEMOGLOBIN 10.4 g/dl (13.5-17.5); MEAN CORPUSCULAR HEMOGLOBIN 26.8 pg (27.0-33.0); MEAN CORPUSCULAR HGB CONC 31.3 g/dl (32.0-36.5); MEAN CORPUSCULAR VOLUME 85.6 fl (80.0-96.0); PLATELET COUNT, AUTOMATED 231 10^3/uL (150-450); RED BLOOD COUNT 3.88 10^6/uL (4.30-6.10); WHITE BLOOD COUNT 8.5 10^3/uL (4.0-10.0)
[2020-03-26 07:21] LABS: ALBUMIN 2.1 GM/DL (3.2-5.2); ALT/SGPT 12 U/L (12-78); BILIRUBIN,TOTAL 0.5 MG/DL (0.2-1.0); BLOOD UREA NITROGEN 17 MG/DL (7-18); CALCIUM LEVEL 8.3 MG/DL (8.8-10.2); CARBON DIOXIDE LEVEL 32 MEQ/L (21-32); CHLORIDE LEVEL 99 MEQ/L (98-107); CREATININE FOR GFR 0.75 MG/DL (0.70-1.30); GLOMERULAR FILTRATION RATE > 60.0 (>35); GLUCOSE, FASTING 123 MG/DL (70-100); POTASSIUM SERUM 3.5 MEQ/L (3.5-5.1); SODIUM LEVEL 135 MEQ/L (136-145); TOTAL PROTEIN 6.5 GM/DL (6.4-8.2)
[2020-03-26] MEDS: MULTIVITAMINS/MINERALS THERAP 1 TAB PO SCH (08:11)
[2020-03-26] MEDS: SODIUM CHLORIDE 1 GM TAB PO SCH (08:11)
[2020-03-26] MEDS: MEMANTINE 5MG TABLET (NAMENDA) PO SCH ×2 (08:11→21:07)
[2020-03-26] MEDS: FUROSEMIDE 40 MG TAB PO SCH (08:11)
[2020-03-26] MEDS: HumaLOG INSULIN (NovoLOG) PER UNIT SC SCH ×4 (08:11→21:00)
[2020-03-26] MEDS: PANTOPRAZOLE 40MG TAB (PROTONIX) PO SCH ×2 (08:11→21:07)
[2020-03-26] MEDS: TIMOLOL MALEATE 0.25% OPHTH SOLN 5 ML OU SCH (08:12)
[2020-03-26] MEDS: OLOPATADINE 0.1% OPHTH SOL 5ML(PATANOL) OU SCH ×2 (08:12→17:09)
[2020-03-26] MEDS: BRIMONIDINE 0.15% OPHTH SOLN 5 ML OU SCH ×3 (08:12→21:07)
[2020-03-26] MEDS ORDERED: CEFUROXIME 500 MG TAB PO SCH (09:00)
[2020-03-26] MEDS ORDERED: cefTRIAXone SOD 1 GM in D5W MINI-BAG PLUS 50 ML IV SCH (12:00)
[2020-03-26 12:12] LABS: MEAN CORPUSCULAR HEMOGLOBIN 26.8 pg (27.0-33.0); MEAN CORPUSCULAR HGB CONC 30.8 g/dl (32.0-36.5); MEAN CORPUSCULAR VOLUME 87.1 fl (80.0-96.0); PLATELET COUNT, AUTOMATED 267 10^3/uL (150-450); RED BLOOD COUNT 4.48 10^6/uL (4.30-6.10); WHITE BLOOD COUNT 9.2 10^3/uL (4.0-10.0)
[2020-03-26] MEDS: GASTROGRAFIN SOLUTION 30ML PO SCH ×2 (13:50→14:31)
[2020-03-26 14:46] VITALS: BP 129/67
[2020-03-26] MEDS ORDERED: ISOVUE-370 76% 100ML VIAL As Ordered ONE (14:55)
--- NOTE | 2020-03-26 15:47 | REP ---
INDICATION: diarrhea,gi bleed COMPARISON: 10/22/2017. TECHNIQUE: CT Scan of the abdomen and pelvis was performed with intravenous administration of 100 cc of Isovue 370, and oral contrast. FINDINGS: Lung bases: There are stable fibrotic changes in both lung bases. There are calcified pleural plaques on the left, and to a minimal extent on the right.. There is a small hiatal hernia. Liver: Normal Gallbladder: Unremarkable. Spleen: Normal. Adrenals: Normal. Pancreas: Normal. Kidneys: There is a 2.7 cm cyst in the upper pole the left kidney. There are smaller scattered cysts seen throughout both kidneys. There is no hydronephrosis. Small and large bowel: There is a 5 cm mass of the sigmoid colon. There are multiple sigmoid and left colonic diverticula. Free fluid: None. Abdominal aorta: Aneurysm of the distal abdominal aorta has slightly increased in size measuring 5.2 cm in AP dimension. Adenopathy: None. Appendix: Not inflamed. Osseous structures: There are degenerative changes of the spine without compression deformity. Pelvis: There is diffuse bladder wall thickening with multiple posterior diverticula. IMPRESSION: There is a mass of the sigmoid colon 5 centimetres in diameter. No bowel obstruction. No free air or free fluid. Distal abdominal aortic aneurysm 5.2 cm in diameter has slightly increased in size since the prior study. Diffuse bladder wall thickening with multiple diverticula. <Electronically signed by Sancho Mccain > 03/26/20 [id number]
[2020-03-26] MEDS: cefTRIAXone SOD 1 GM in D5W MINI-BAG PLUS 50 ML IV SCH (17:08)
[2020-03-26] MEDS: LACTOBACILLUS ACIDOPHILUS CAP (BACID) PO SCH (21:06)
[2020-03-26] MEDS: TAMSULOSIN 0.4 MG CAP PO SCH (21:06)
[2020-03-26] MEDS: SIMVASTATIN 20 MG TAB PO SCH (21:06)
[2020-03-26] MEDS: CETIRIZINE (ZyrTEC) 10 MG TAB PO SCH (21:06)
[2020-03-26] MEDS: LATANOPROST 0.005% OPHTH SOLN 2.5 ML OU SCH (21:07)
[2020-03-26] MEDS: FINASTERIDE 5 MG TAB PO SCH (21:07)
[2020-03-26] MEDS: DIVALPROEX 500MG *ER* TAB PO SCH (21:07)
[2020-03-26 22:00] VITALS: BP 105/50
[2020-03-27 00:19] LABS: HEMATOCRIT 33.3 % (42.0-52.0); HEMOGLOBIN 10.3 g/dl (13.5-17.5); MEAN CORPUSCULAR HEMOGLOBIN 26.2 pg (27.0-33.0); MEAN CORPUSCULAR HGB CONC 30.9 g/dl (32.0-36.5); MEAN CORPUSCULAR VOLUME 84.7 fl (80.0-96.0); PLATELET COUNT, AUTOMATED 239 10^3/uL (150-450); RED BLOOD COUNT 3.93 10^6/uL (4.30-6.10); WHITE BLOOD COUNT 9.6 10^3/uL (4.0-10.0)
[2020-03-27 04:04] VITALS: BP 123/54
[2020-03-27 07:11] LABS: ALBUMIN 2.2 GM/DL (3.2-5.2); ALT/SGPT 15 U/L (12-78); BILIRUBIN,TOTAL 0.3 MG/DL (0.2-1.0); BLOOD UREA NITROGEN 16 MG/DL (7-18); CALCIUM LEVEL 8.1 MG/DL (8.8-10.2); CARBON DIOXIDE LEVEL 34 MEQ/L (21-32); CHLORIDE LEVEL 100 MEQ/L (98-107); CREATININE FOR GFR 0.73 MG/DL (0.70-1.30); GLOMERULAR FILTRATION RATE > 60.0 (>35); GLUCOSE, FASTING 105 MG/DL (70-100); POTASSIUM SERUM 3.9 MEQ/L (3.5-5.1); SODIUM LEVEL 138 MEQ/L (136-145)
[2020-03-27] MEDS: HumaLOG INSULIN (NovoLOG) PER UNIT SC SCH ×4 (07:30→21:00)
[2020-03-27] MEDS: PANTOPRAZOLE 40MG TAB (PROTONIX) PO SCH ×2 (10:38→21:13)
[2020-03-27] MEDS: SODIUM CHLORIDE 1 GM TAB PO SCH (10:38)
[2020-03-27] MEDS: MEMANTINE 5MG TABLET (NAMENDA) PO SCH ×2 (10:38→21:13)
[2020-03-27] MEDS: BRIMONIDINE 0.15% OPHTH SOLN 5 ML OU SCH ×3 (10:43→21:14)
[2020-03-27] MEDS: TIMOLOL MALEATE 0.25% OPHTH SOLN 5 ML OU SCH (10:43)
[2020-03-27] MEDS: OLOPATADINE 0.1% OPHTH SOL 5ML(PATANOL) OU SCH ×2 (10:43→17:05)
[2020-03-27] MEDS: MULTIVITAMINS/MINERALS THERAP 1 TAB PO SCH (10:43)
[2020-03-27] MEDS: FUROSEMIDE 40 MG TAB PO SCH (10:44)
[2020-03-27 11:48] LABS: HEMATOCRIT 32.5 % (42.0-52.0); HEMOGLOBIN 10.4 g/dl (13.5-17.5); MEAN CORPUSCULAR HEMOGLOBIN 27.4 pg (27.0-33.0); MEAN CORPUSCULAR VOLUME 85.5 fl (80.0-96.0); PLATELET COUNT, AUTOMATED 228 10^3/uL (150-450)
[2020-03-27 14:00] VITALS: BP 120/69
--- NOTE | 2020-03-27 16:44 | CR ---
CONSULTATION DATE: 03/24/2020 CHIEF COMPLAINT: History of rectal bleeding. HISTORY OF PRESENT ILLNESS: Patient is an 84-year-old man who was admitted because of failure to thrive, progressive dementia issues and has had some decreased appetite and there is a question of a history of a gastrointestinal (GI) bleed that was planned to be worked up as an outpatient; however, not sure of the status of this, nor do I see any evidence of any workup as of yet. Patient has had some bright red blood per rectum and I was asked to see him for possible GI workup. Given that this has been going on for a while and he has had a history of anemia with all his comorbidities without a significant history to go by, I do feel that we need additional information. PAST MEDICAL HISTORY: Significant for: 1. Diabetes mellitus. 2. Hypertension. 3. Dementia. 4. Glaucoma. 5. Hyperlipidemia. 6. Abdominal aortic aneurysm. 7. Chronic diarrhea. 8. Dysphagia. 9. Chronic kidney disease. 10. Hernia repair. 11. Bilateral cataract surgery. 12. Left neck cyst removal. PHYSICAL EXAMINATION: Reveals a demented 84-year-old who looks stated age. He has had significant problems with incontinence of stool and is not oriented to place or time; however, pleasant and agreeable. HEENT: Unremarkable. LUNGS: Clear anteriorly. HEART: Regular. ABDOMEN: Soft, non-distended, nontender. No guarding. No rebound. No peritoneal signs are appreciated. IMPRESSION/PLAN: Patient has evidence of lower GI bleed of undetermined etiology. He has had some incontinence issues with also some bright red blood per rectum, as well as some diarrhea that has been going on for a while as well. At this time, given those issues associated with the diarrhea, as well as GI bleed, as well as anemia, all concerning for possible lower GI issue, possible benign versus malignant etiology and thus, at this point, given his overall status, I would recommend that we proceed with a CAT scan of the abdomen and pelvis, given my suspicion is moderately high that he may have some significant abnormality going on. Nothing that needs emergent operative intervention, given his presentation, but that may change our GI workup plans. DD: / / /ashley
[2020-03-27] MEDS: cefTRIAXone SOD 1 GM in D5W MINI-BAG PLUS 50 ML IV SCH (17:05)
--- NOTE | 2020-03-27 18:08 | IPNPDOC ---
Date Seen The patient was seen on 03/27/20. Progress Note SUBJECTIVE: No events overnight. Labs stable, UCx pending. OBJECTIVE PHYSICAL EXAMINATION: VS: Please see below CONSTITUTIONAL: No acute distress, resting comfortably, AAO x 2 EYES: PERRLA, EOM intact HENT, MOUTH: Normocephalic, atraumatic, moist mucous membranes NECK: SUPPLE, no JVD, no lymphadenopathy, no carotid bruit CV: Regular rate and rhythm, S1S2 normal, no murmurs/rubs/gallops RESPIRATORY: Clear to auscultation bilaterally, no rales/rhonchi/wheezes GI: BS positive in 4 quadrants, soft, nontender, nondistended, no rebound or guarding, no organomegaly : Deferred MUSCULOSKELETAL: ROM at [facility] for lower ext. No cyanosis, clubbing, swelling, joint deformity, extremity edema INTEGUMENTARY: 2 small Stage I ulcers on both buttocks, otherwise intact, no rashes, no lesions, no erythema NEUROLOGIC: Cranial Nerves II-XII are intact, no focal deficits PSYCHIATRIC: Mood and affect are normal, pleasantly confused at times LABORATORY DATA: Please see below IMAGING: CT abd/pelvis: Mass sigmoid colon 5 centimeters in diameter. No bowel obstruction. No free air or free fluid. Distal abdominal aortic aneurysm 5.2 cm in diameter has slightly increased in size since the prior study. Diffuse bladder wall thickening with multiple diverticula CT head: No acute intracranial abnormalities CXR: Chronic changes ASSESSMENT:84-year-old male with past medical history of diabetes mellitus type 2, hypertension, dementia, glaucoma, hyperlipidemia, history of AAA, CKD stage unknown admitted to the hospital due to increased weakness, family unable to care for him at home. PLAN: Mass of the sigmoid colon -CT abd/pelvis above -Discussed with family multiple times over 24 hours. -Options for treatment given to them after discussing with surgery. -Decision is to do nothing at this time and bring patient back home to be with family -Will update general surgery and PFS in the AM. -Keeping DNR/DNI. Generalized weakness, worsening physical deconditioning per family -Likely 2/2 to mass, chronically worsening state, dementia -Family now wishes to care for him at home, they would like to request more care if possible through their insurance company -Decreased appetite, incontinent of bowel and bladder -Not moving around much at home but has walker, decond -PT: Pt is limited by cognitive deficits, stating he does not use a RW, however reaching for RW once standing to mobilize. Pt currently requires Min A for mobility and based on family reporting recent decline in function/strength -Will discuss with PFS GI bleed, chronic and likely 2/2 to colon mass seen on CT -no more bloody bowel movements since one 03/26/20 -H/H 10.333 -No cyanosis, pallor -Transfuse PRN, nothing else to be done by surgery at this time per family's request -CBC daily Dysphagia -Swallowing eval: c/w thin liquids, pureed diet E. coli and Aerococcus urinae UTI -C/w ceftin 500 mg PO BID x 4 additional days DM type II -ISS, FS AC/HS, consistent carb diet HTN -Stable -C/w home meds, low salt diet Dementia -Not off baseline, very confused -C/w home medications Glaucoma -C/w eye drops Hyperlipidemia -C/w statin AAA -Stable on CT above -F/u by PCP BPH -C/w tamsulosin GI px -PPI BID DVT px -SCD, teds Resolved issue: Diarrhea/soft stool DISPOSITION: Family wants to now bring patient home. Will discuss with PFS. Currently inpatient status. VS, I&O, 24H, Fishbone Vital Signs/I&O Vital Signs Date Time Temp Pulse Resp B/P (MAP) Pulse Ox O2 Delivery O2 Flow Rate FiO2 03/27/20 14:00 96.0 82 20 120/69 (86) 91 Room Air I&O- Last 24 Hours up to 6 AM 03/27/20 05:59 Intake Total 620 ml Output Total 0 ml Balance 620 ml Laboratory Data 24H LABS Laboratory Tests 2 03/26/20 21:03: Bedside Glucose (Misc Panel) 77L 03/26/20 23:44: Nucleated Red Blood Cells % (auto) 0.0 03/27/20 06:31: Anion Gap 4L, Glomerular Filtration Rate > 60.0, Calcium Level 8.1L, Total Bilirubin 0.3, Aspartate Amino Transf (AST/SGOT) 19, Alanine Aminotransferase (ALT/SGPT) 15, Alkaline Phosphatase 61, Total Protein 6.0L, Albumin 2.2L, Albumin/Globulin Ratio 0.6 03/27/20 11:34: Nucleated Red Blood Cells % (auto) 0.0 03/27/20 11:47: Bedside Glucose (Misc Panel) 126H 03/27/20 17:00: Bedside Glucose (Misc Panel) 183H CBC/BMP Laboratory Tests 03/26/20 23:44 03/27/20 06:31 03/27/20 11:34 Microbiology Microbiology 03/26/20 Stool Occult Blood (ALEKSANDAR) - Final, Complete 03/24/20 Blood Culture - Preliminary, Resulted No Growth after 72 hours. All specime... 03/24/20 Urine Culture - Final, Complete Escherichia Coli Aerococcus Urinae 03/24/20 Respiratory Virus Panel (PCR) (ALEKSANDAR) - Final, Complete 03/24/20 Blood Culture - Preliminary, Resulted No Growth after 72 hours. All specime... Current Medications Current Medications Medications (Trade) Dose Ordered Sig/Natalya Route PRN Reason Start Time Stop Time Status Last Admin Dose Admin Artificial Tears (Akwa Tears) 2 drop QIDP PRN OU DRY EYES 03/24/20 16:30 Brimonidine Tartrate (Alphagan P 0.15%) 1 drop TID OU 03/24/20 21:00 03/27/20 17:05 Ceftriaxone Sodium 1 gm/ Dextrose 50 ml @ 100 mls/hr Q24H IV 03/25/20 16:00 03/26/20 08:17 DC 03/25/20 16:53 Ceftriaxone Sodium 1 gm/ Dextrose 50 ml @ 100 mls/hr Q24H IV 03/26/20 12:00 Cancel Ceftriaxone Sodium 1 gm/ Dextrose 50 ml @ 100 mls/hr Q24H IV 03/26/20 16:00 03/27/20 17:05 Cefuroxime Axetil (Ceftin) 500 mg BID PO 03/26/20 09:00 03/26/20 11:42 DC 03/26/20 10:15 Cetirizine HCl (ZyrTEC) 10 mg QHS PO 03/24/20 21:00 03/26/20 21:06 Dextrose (Dextrose 50%) 25 ml ASDIRECTED PRN IV SEE LABEL COMMENTS 03/24/20 16:45 Diatrizoate Meglum/ Diatrizoate Sod (Gastrografin) 10 ml Q30M PO 03/26/20 13:45 03/26/20 14:16 DC 03/26/20 14:31 Divalproex Sodium (Depakote Er) 500 mg QHS PO 03/24/20 21:00 03/26/20 21:07 Finasteride (Proscar) 5 mg QHS PO 03/24/20 21:00 03/26/20 21:07 Furosemide (Lasix) 40 mg DAILY PO 03/25/20 09:00 03/27/20 10:44 Glucagon (Glucagon) 1 mg ASDIRECTED PRN SC SEE LABEL COMMENTS 03/24/20 16:45 Glucose (Glucose) 16 GM ASDIRECTED PRN PO SEE LABEL COMMENTS 03/24/20 16:45 Home Med (Med Rec Complete!) ASDIRECTED XX 03/24/20 16:00 03/24/20 15:57 DC Insulin Human Lispro (HumaLOG INSULIN) SEE PROTOCOL TABLE AC SC 03/24/20 17:30 03/26/20 17:08 Insulin Human Lispro (HumaLOG INSULIN) SEE PROTOCOL TABLE QHS SC 03/24/20 21:00 Lactobacillus Acidophilus (Bacid) 1 ea QHS PO 03/24/20 21:00 03/26/20 21:06 Latanoprost (Xalatan 0.005% Op Soln) 1 drop QHS OU 03/24/20 21:00 03/26/20 21:07 Memantine (Namenda) 10 mg BID PO 03/24/20 21:00 03/27/20 10:38 Multivitamins (Theragram-M) 1 tab DAILY PO 03/25/20 09:00 03/27/20 10:43 Olopatadine HCl (Patanol) 1 drop BID@,17 OU 03/25/20 09:00 03/27/20 17:05 Pantoprazole Sodium (Protonix) 40 mg BID PO 03/24/20 21:00 03/27/20 10:38 Simvastatin (Zocor) 20 mg QHS PO 03/24/20 21:00 03/26/20 21:06 Sodium Chloride ([place] Nasal [place]) 1 spray QIDP PRN NA NASAL CONGESTION 03/24/20 16:30 Sodium Chloride (Sodium Chloride) 1 gm DAILY PO 03/25/20 09:00 03/27/20 10:38 Tamsulosin HCl (Flomax) 0.4 mg QHS PO 03/24/20 21:00 03/26/20 21:06 Timolol Maleate (Timoptic 0.25% Ophth Betty) 1 drop DAILY OU 03/25/20 09:00 03/27/20 10:43 Allergies Coded Allergies: SEASONAL ALLERGIES (Verified Allergy, Unknown, 06/04/19) EDUARDO Inhibitors (Verified Adverse Reaction, Unknown, "sick", 05/15/19) Gay Faustin MD Mar 27, 2020 18:08
--- NOTE | 2020-03-27 20:25 | IPN ---
PROGRESS NOTE DATE: 03/27/2020 SUBJECTIVE: The patient has been stable overnight. Hematocrit is low and his vital signs have been stable. He did have some hypotension overnight and his I.'s and O.'s reveal that he is having some incontinent bowel movements, probably associated with the contrast that he was given previously. His CAT scan was performed yesterday and reveals a mass in the sigmoid colon. The aneurysm was 5.2 cm in diameter. It describes that this is slightly larger than previously although it has been noted at 5.3, has been in the H&P. Otherwise no other significant abnormalities, although I do feel that the liver is hard to assess for metastatic disease. There are some lymph nodes in the mesentery surrounding this lesion in the sigmoid colon. IMPRESSION PLAN: The patient has evidence of an abnormality in the sigmoid colon. The question is whether this benign or malignant. Given the prolonged history associated with this, I have concerns that this may be a malignancy. A CEA was ordered and obviously the question is how to proceed with intervention, whether a colonoscopy for definitive diagnostic purposes is warranted, whether endoscopy and stenting could be performed to open up this area to avoid any obstructive component, whether palliative comfort care is warranted, given his overall comorbidities and other issues that are significantly problematic at this time. I would defer these discussions for the Primary Care with the family at this time, however I can assist with proceeding with a colonoscopy if necessary. However I do feel that he would be an extremely poor operative candidate for resection and anastomosis and I would recommend that at most he should have a colonic resection and a colostomy and if the colonoscopy indeed confirms the concerning diagnosis.
[2020-03-27] MEDS: TAMSULOSIN 0.4 MG CAP PO SCH (21:13)
[2020-03-27] MEDS: CETIRIZINE (ZyrTEC) 10 MG TAB PO SCH (21:13)
[2020-03-27] MEDS: FINASTERIDE 5 MG TAB PO SCH (21:13)
[2020-03-27] MEDS: SIMVASTATIN 20 MG TAB PO SCH (21:13)
[2020-03-27] MEDS: LACTOBACILLUS ACIDOPHILUS CAP (BACID) PO SCH (21:13)
[2020-03-27] MEDS: LATANOPROST 0.005% OPHTH SOLN 2.5 ML OU SCH (21:14)
[2020-03-27] MEDS: DIVALPROEX 500MG *ER* TAB PO SCH (21:14)
[2020-03-27 22:00] VITALS: BP 151/90
[2020-03-27 23:24] LABS: HEMATOCRIT 33.6 % (42.0-52.0); HEMOGLOBIN 10.3 g/dl (13.5-17.5); MEAN CORPUSCULAR HEMOGLOBIN 26.2 pg (27.0-33.0); MEAN CORPUSCULAR HGB CONC 30.7 g/dl (32.0-36.5); MEAN CORPUSCULAR VOLUME 85.5 fl (80.0-96.0); PLATELET COUNT, AUTOMATED 223 10^3/uL (150-450); RED BLOOD COUNT 3.93 10^6/uL (4.30-6.10); WHITE BLOOD COUNT 9.6 10^3/uL (4.0-10.0)
[2020-03-28 06:00] VITALS: BP 132/69
[2020-03-28 06:56] LABS: ALBUMIN 2.2 GM/DL (3.2-5.2); ALT/SGPT 18 U/L (12-78); BILIRUBIN,TOTAL 0.5 MG/DL (0.2-1.0); BLOOD UREA NITROGEN 17 MG/DL (7-18); CALCIUM LEVEL 8.3 MG/DL (8.8-10.2); CARBON DIOXIDE LEVEL 34 MEQ/L (21-32); CHLORIDE LEVEL 97 MEQ/L (98-107); GLOMERULAR FILTRATION RATE > 60.0 (>35); GLUCOSE, FASTING 98 MG/DL (70-100); POTASSIUM SERUM 3.2 MEQ/L (3.5-5.1); SODIUM LEVEL 136 MEQ/L (136-145); TOTAL PROTEIN 6.7 GM/DL (6.4-8.2)
[2020-03-28] MEDS: HumaLOG INSULIN (NovoLOG) PER UNIT SC SCH ×4 (07:30→21:00)
[2020-03-28] MEDS ORDERED: POTASSIUM CHLORIDE 10 MEQ SR TABLET PO ONE (07:45)
[2020-03-28] MEDS: PANTOPRAZOLE 40MG TAB (PROTONIX) PO SCH ×2 (08:25→21:42)
[2020-03-28] MEDS: MEMANTINE 5MG TABLET (NAMENDA) PO SCH ×2 (08:25→21:42)
[2020-03-28] MEDS: FUROSEMIDE 40 MG TAB PO SCH (08:25)
[2020-03-28] MEDS: OLOPATADINE 0.1% OPHTH SOL 5ML(PATANOL) OU SCH ×2 (08:25→16:10)
[2020-03-28] MEDS: BRIMONIDINE 0.15% OPHTH SOLN 5 ML OU SCH ×3 (08:25→21:43)
[2020-03-28] MEDS: TIMOLOL MALEATE 0.25% OPHTH SOLN 5 ML OU SCH (08:25)
[2020-03-28] MEDS: MULTIVITAMINS/MINERALS THERAP 1 TAB PO SCH (08:25)
[2020-03-28] MEDS: SODIUM CHLORIDE 1 GM TAB PO SCH (10:49)
[2020-03-28 12:13] LABS: HEMATOCRIT 37.2 % (42.0-52.0); HEMOGLOBIN 11.6 g/dl (13.5-17.5); MEAN CORPUSCULAR HEMOGLOBIN 27.1 pg (27.0-33.0); MEAN CORPUSCULAR HGB CONC 31.2 g/dl (32.0-36.5); MEAN CORPUSCULAR VOLUME 86.9 fl (80.0-96.0); PLATELET COUNT, AUTOMATED 231 10^3/uL (150-450); RED BLOOD COUNT 4.28 10^6/uL (4.30-6.10); WHITE BLOOD COUNT 7.7 10^3/uL (4.0-10.0)
[2020-03-28] MEDS: cefTRIAXone SOD 1 GM in D5W MINI-BAG PLUS 50 ML IV SCH (16:09)
--- NOTE | 2020-03-28 17:30 | IPNPDOC ---
Date Seen The patient was seen on 03/28/20. Progress Note SUBJECTIVE: No events overnight. No increased bleeding overnight. CEA ordered, pending. Labs stable. Confused, denies any complaints. OBJECTIVE PHYSICAL EXAMINATION: VS: Please see below CONSTITUTIONAL: No acute distress, resting comfortably, AAO x 1 this AM EYES: PERRLA, EOM intact HENT, MOUTH: Normocephalic, atraumatic, moist mucous membranes NECK: SUPPLE, no JVD, no lymphadenopathy, no carotid bruit CV: Regular rate and rhythm, S1S2 normal, no murmurs/rubs/gallops RESPIRATORY: Clear to auscultation bilaterally, no rales/rhonchi/wheezes GI: BS positive in 4 quadrants, soft, nontender, nondistended, no rebound or guarding, no organomegaly : Deferred MUSCULOSKELETAL: ROM at baesline for lower ext. No cyanosis, clubbing, swelling, joint deformity, extremity edema INTEGUMENTARY: 2 small Stage I ulcers on both buttocks, otherwise intact, no rashes, no lesions, no erythema NEUROLOGIC: Cranial Nerves II-XII are intact, no focal deficits PSYCHIATRIC: Mood and affect are normal, pleasantly confused at times LABORATORY DATA: Please see below IMAGING: CT abd/pelvis: Mass sigmoid colon 5 centimeters in diameter. No bowel obstruction. No free air or free fluid. Distal abdominal aortic aneurysm 5.2 cm in diameter has slightly increased in size since the prior study. Diffuse bladder wall thickening with multiple diverticula CT head: No acute intracranial abnormalities CXR: Chronic changes ASSESSMENT:84-year-old male with past medical history of diabetes mellitus type 2, hypertension, dementia, glaucoma, hyperlipidemia, history of AAA, CKD stage unknown admitted to the hospital due to increased weakness, family unable to care for him at home. PLAN: Mass of the sigmoid colon -CT abd/pelvis above -Discussed with family, options for treatment given to them after discussing with surgery. -Decision is to do nothing at this time and bring patient back home to be with family -Uupdated general surgery and PFS. Please refer to general surgery note -Keeping DNR/DNI. Generalized weakness, worsening physical deconditioning per family -Likely 2/2 to mass, chronically worsening state, dementia -Family now wishes to care for him at home, they would like to request more care if possible through their insurance company -Decreased appetite, incontinent of bowel and bladder -Not moving around much at home but has walker -PT: Pt is limited by cognitive deficits, stating he does not use a RW, however reaching for RW once standing to mobilize. Pt currently requires Min A for mobility and based on family reporting recent decline in function/strength -Home with services GI bleed, chronic and likely 2/2 to colon mass seen on CT -no more bloody bowel movements since one 03/26/20 -H/H stable -No cyanosis, pallor -Transfuse PRN, nothing else to be done by surgery at this time per family's request -CBC daily Dysphagia -Swallowing eval: c/w thin liquids, pureed diet E. coli and Aerococcus urinae UTI -C/w levofloxacin 500 mg PO BID x 3 additional days DM type II -ISS, FS AC/HS, consistent carb diet HTN -Stable -C/w home meds, low salt diet Dementia -Not off baseline, very confused -C/w home medications Glaucoma -C/w eye drops Hyperlipidemia -C/w statin AAA -Stable on CT above -F/u by PCP BPH -C/w tamsulosin GI px -PPI BID DVT px -SCD, teds Resolved issue: Diarrhea/soft stool DISPOSITION: Family wants to now bring patient home, likely can be arranged by 03/29/20 per PFS. VS, I&O, 24H, Fishbone Vital Signs/I&O Vital Signs Date Time Temp Pulse Resp B/P (MAP) Pulse Ox O2 Delivery O2 Flow Rate FiO2 03/28/20 06:00 98.6 72 18 132/69 (90) 93 Room Air I&O- Last 24 Hours up to 6 AM 03/28/20 06:00 Intake Total 1070 ml Output Total 200 ml Balance 870 ml Laboratory Data 24H LABS Laboratory Tests 2 03/27/20 21:07: Bedside Glucose (Misc Panel) 139H 03/27/20 23:19: Nucleated Red Blood Cells % (auto) 0.0 03/28/20 06:07: Anion Gap 5L, Glomerular Filtration Rate > 60.0, Calcium Level 8.3L, Total Bilirubin 0.5#, Aspartate Amino Transf (AST/SGOT) 25, Alanine Aminotransferase (ALT/SGPT) 18, Alkaline Phosphatase 60, Total Protein 6.7, Albumin 2.2L, Albumin/Globulin Ratio 0.5 03/28/20 11:45: Bedside Glucose (Misc Panel) 143H 03/28/20 12:02: Nucleated Red Blood Cells % (auto) 0.0 03/28/20 17:00: CBC/BMP Laboratory Tests 03/27/20 23:19 03/28/20 06:07 03/28/20 12:02 Microbiology Microbiology 03/26/20 Stool Occult Blood (ALEKSANDAR) - Final, Complete 03/24/20 Blood Culture - Preliminary, Resulted No Growth after 72 hours. All specime... 03/24/20 Urine Culture - Final, Complete Escherichia Coli Aerococcus Urinae 03/24/20 Respiratory Virus Panel (PCR) (ALEKSANDAR) - Final, Complete 03/24/20 Blood Culture - Preliminary, Resulted No Growth after 72 hours. All specime... Current Medications Current Medications Medications (Trade) Dose Ordered Sig/Natalya Route PRN Reason Start Time Stop Time Status Last Admin Dose Admin Artificial Tears (Akwa Tears) 2 drop QIDP PRN OU DRY EYES 03/24/20 16:30 Brimonidine Tartrate (Alphagan P 0.15%) 1 drop TID OU 03/24/20 21:00 03/28/20 16:10 Ceftriaxone Sodium 1 gm/ Dextrose 50 ml @ 100 mls/hr Q24H IV 03/25/20 16:00 03/26/20 08:17 DC 03/25/20 16:53 Ceftriaxone Sodium 1 gm/ Dextrose 50 ml @ 100 mls/hr Q24H IV 03/26/20 12:00 Cancel Ceftriaxone Sodium 1 gm/ Dextrose 50 ml @ 100 mls/hr Q24H IV 03/26/20 16:00 03/28/20 16:09 Cefuroxime Axetil (Ceftin) 500 mg BID PO 03/26/20 09:00 03/26/20 11:42 DC 03/26/20 10:15 Cetirizine HCl (ZyrTEC) 10 mg QHS PO 03/24/20 21:00 03/27/20 21:13 Dextrose (Dextrose 50%) 25 ml ASDIRECTED PRN IV SEE LABEL COMMENTS 03/24/20 16:45 Diatrizoate Meglum/ Diatrizoate Sod (Gastrografin) 10 ml Q30M PO 03/26/20 13:45 03/26/20 14:16 DC 03/26/20 14:31 Divalproex Sodium (Depakote Er) 500 mg QHS PO 03/24/20 21:00 03/27/20 21:14 Finasteride (Proscar) 5 mg QHS PO 03/24/20 21:00 03/27/20 21:13 Furosemide (Lasix) 40 mg DAILY PO 03/25/20 09:00 03/28/20 08:25 Glucagon (Glucagon) 1 mg ASDIRECTED PRN SC SEE LABEL COMMENTS 03/24/20 16:45 Glucose (Glucose) 16 GM ASDIRECTED PRN PO SEE LABEL COMMENTS 03/24/20 16:45 Home Med (Med Rec Complete!) ASDIRECTED XX 03/24/20 16:00 03/24/20 15:57 DC Insulin Human Lispro (HumaLOG INSULIN) SEE PROTOCOL TABLE AC SC 03/24/20 17:30 03/26/20 17:08 Insulin Human Lispro (HumaLOG INSULIN) SEE PROTOCOL TABLE QHS SC 03/24/20 21:00 Lactobacillus Acidophilus (Bacid) 1 ea QHS PO 03/24/20 21:00 03/27/20 21:13 Latanoprost (Xalatan 0.005% Op Soln) 1 drop QHS OU 03/24/20 21:00 03/27/20 21:14 Memantine (Namenda) 10 mg BID PO 03/24/20 21:00 03/28/20 08:25 Multivitamins (Theragram-M) 1 tab DAILY PO 03/25/20 09:00 03/28/20 08:25 Olopatadine HCl (Patanol) 1 drop BID@09,17 OU 03/25/20 09:00 03/28/20 16:10 Pantoprazole Sodium (Protonix) 40 mg BID PO 03/24/20 21:00 03/28/20 08:25 Simvastatin (Zocor) 20 mg QHS PO 03/24/20 21:00 03/27/20 21:13 Sodium Chloride (Weld Nasal Florence) 1 spray QIDP PRN NA NASAL CONGESTION 03/24/20 16:30 Sodium Chloride (Sodium Chloride) 1 gm DAILY PO 03/25/20 09:00 03/28/20 10:49 Tamsulosin HCl (Flomax) 0.4 mg QHS PO 03/24/20 21:00 03/27/20 21:13 Timolol Maleate (Timoptic 0.25% Ophth Betty) 1 drop DAILY OU 03/25/20 09:00 03/28/20 08:25 Allergies Coded Allergies: SEASONAL ALLERGIES (Verified Allergy, Unknown, 06/04/19) EDUARDO Inhibitors (Verified Adverse Reaction, Unknown, "sick", 05/15/19) Gay Faustin MD Mar 28, 2020 17:29
[2020-03-28] MEDS ORDERED: LevoFLOXacin 250 MG TABLET PO SCH (18:00)
[2020-03-28] MEDS: TAMSULOSIN 0.4 MG CAP PO SCH (21:42)
[2020-03-28] MEDS: LACTOBACILLUS ACIDOPHILUS CAP (BACID) PO SCH (21:42)
[2020-03-28] MEDS: DIVALPROEX 500MG *ER* TAB PO SCH (21:42)
[2020-03-28] MEDS: CETIRIZINE (ZyrTEC) 10 MG TAB PO SCH (21:43)
[2020-03-28] MEDS: LATANOPROST 0.005% OPHTH SOLN 2.5 ML OU SCH (21:43)
[2020-03-28] MEDS: SIMVASTATIN 20 MG TAB PO SCH (21:43)
[2020-03-28] MEDS: FINASTERIDE 5 MG TAB PO SCH (21:43)
[2020-03-29 06:00] VITALS: BP 106/48
[2020-03-29] MEDS: HumaLOG INSULIN (NovoLOG) PER UNIT SC SCH ×2 (07:30→12:54)
[2020-03-29 08:23] LABS: HEMATOCRIT 33.7 % (42.0-52.0); HEMOGLOBIN 10.4 g/dl (13.5-17.5); MEAN CORPUSCULAR HEMOGLOBIN 26.5 pg (27.0-33.0); MEAN CORPUSCULAR HGB CONC 30.9 g/dl (32.0-36.5); PLATELET COUNT, AUTOMATED 224 10^3/uL (150-450); RED BLOOD COUNT 3.92 10^6/uL (4.30-6.10); WHITE BLOOD COUNT 7.9 10^3/uL (4.0-10.0)
[2020-03-29] MEDS: SODIUM CHLORIDE 1 GM TAB PO SCH (08:46)
[2020-03-29] MEDS: PANTOPRAZOLE 40MG TAB (PROTONIX) PO SCH (08:46)
[2020-03-29] MEDS: MEMANTINE 5MG TABLET (NAMENDA) PO SCH (08:46)
[2020-03-29] MEDS: FUROSEMIDE 40 MG TAB PO SCH (08:46)
[2020-03-29] MEDS: MULTIVITAMINS/MINERALS THERAP 1 TAB PO SCH (08:46)
[2020-03-29] MEDS: TIMOLOL MALEATE 0.25% OPHTH SOLN 5 ML OU SCH (08:47)
[2020-03-29] MEDS: BRIMONIDINE 0.15% OPHTH SOLN 5 ML OU SCH (08:47)
[2020-03-29] MEDS: OLOPATADINE 0.1% OPHTH SOL 5ML(PATANOL) OU SCH (08:47)
[2020-03-29 08:48] LABS: ALBUMIN 2.3 GM/DL (3.2-5.2); ALT/SGPT 20 U/L (12-78); BILIRUBIN,TOTAL 0.3 MG/DL (0.2-1.0); BLOOD UREA NITROGEN 16 MG/DL (7-18); CALCIUM LEVEL 8.4 MG/DL (8.8-10.2); CARBON DIOXIDE LEVEL 33 MEQ/L (21-32); CHLORIDE LEVEL 101 MEQ/L (98-107); CREATININE FOR GFR 0.76 MG/DL (0.70-1.30); GLOMERULAR FILTRATION RATE > 60.0 (>35); GLUCOSE, FASTING 90 MG/DL (70-100); POTASSIUM SERUM 3.9 MEQ/L (3.5-5.1); SODIUM LEVEL 141 MEQ/L (136-145); TOTAL PROTEIN 6.2 GM/DL (6.4-8.2)
--- NOTE | 2020-03-29 12:08 | IPNPDOC ---
Text Note Date of Service The patient was seen on 03/29/20. NOTE HOSPITAL BED The beneficiary has a medical condition which requires positioning of the body and where is not feasible with an ordinary bed. The beneficiary requires frequent changes in body position and has an immediate need for change in body position. VS,Fishbone, I+O VS, Fishbone, I+O Laboratory Tests 03/28/20 12:02 03/29/20 07:38 Vital Signs Date Time Temp Pulse Resp B/P (MAP) Pulse Ox O2 Delivery O2 Flow Rate FiO2 03/29/20 06:00 97.0 55 17 106/48 (67) 94 Room Air I&O- Last 24 Hours up to 6 AM0 03/29/20 06:00 Intake Total 920 ml Output Total 150 ml Balance 770 ml GEORGETTE RECINOS MD Mar 29, 2020 12:08
[2020-03-29] MEDS ORDERED: LEVO250T12 PO (12:12)
--- NOTE | 2020-04-12 06:27 | DS.PDOC ---
Discharge Summary General Date of Admission Mar 24, 2020 at 15:34 Date of Discharge 03/29/20 Discharge Summary PROCEDURES PERFORMED DURING STAY: [None]. DISCHARGE DIAGNOSES: Mass of the sigmoid colon - suspicion for malignancy- patient to decide on desired plan of care - to discuss with pcp and family Generalized weakness GI bleed, chronic and likely 2/2 to colon mass seen on CT Dysphagia E. coli and Aerococcus urinae UTI DM type II HTN Dementia Glaucoma Hyperlipidemia AAA BPH COMPLICATIONS/CHIEF COMPLAINT: Metabolic Encephalopathy, Uti. HISTORY OF PRESENT ILLNESS: Patient is an 84-year-old male with past medical history of diabetes mellitus type 2, hypertension, dementia, glaucoma, hyperlipidemia, history of AAA, CKD stage unknown who presented to [facility] emergency room after being brought in by family. The patient lives with his elderly who requires several home health aides and she is also compromised. The patient is assigned 8 hours by a home health aide but recently the family has noticed when coming to check on him that he has been left soiled and his briefs for long periods of time. He has been less active as he is not getting out of bed much due to not having people to help them do so. They also noticed he has had decreased appetite and been nonverbal with them at times. He has a history of GI bleed was getting worked up as outpatient by his primary care provider, referral has outpatient for him to see someone for additional testing. At one point the family states that they were told he may "need a transfusion" but that has not occurred. He has had no noticeable bleeding. He is to go to adult daycare; however, with Covid the patient has been mostly home and does not get out of the house. Although the patient is confused at times with a diagnosis of dementia, he was very fox ative and was able to tell us that he has no acute complaints and denies chest pain, fevers, chills, nausea, vomiting, abdominal pain, shortness of breath, lightheadedness or dizziness. Emergency room vital signs were stable. H&H 11/37, blood sugar 143, creatinine within normal limits. UA positive and was sent for culture. Covid negative, chest x-ray showed chronic changes, CT of the head was negative. ECG showed old right bundle-branch block with PACs otherwise sinus rhythm. On exam the patient was cooperative and responsive with what he could remember. He had some confusion but was awake alert oriented 2. He did not know the year, president, reason for being at the hospital but was able to tell me his name, his birthday and his family member at the bedside. His daughter were explained to us that the patient's niece is his healthcare proxy, Satcy Coleman [phone]. Due to patient's living situation and inability to have enough care to safely discharge, the patient was admitted to the hospital for further care. PFS consulted. HOSPITAL COURSE: 84-year-old male with past medical history of diabetes mellitus type 2, hypertension, dementia, glaucoma, hyperlipidemia, history of AAA, CKD stage unknown admitted to the hospital due to increased weakness, family unable to care for him at home. Mass of the sigmoid colon -CT abd/pelvis above -Discussed with family, options for treatment given to them after discussing with surgery. -Decision is to do nothing at this time and bring patient back home to be with susannah zabala - Please refer to general surgery note -Keeping DNR/DNI. Generalized weakness, worsening physical deconditioning per family -Likely 2/2 to mass, chronically worsening state, dementia -Family now wishes to care for him at home, they would like to request more care if possible through their insurance company -Decreased appetite, incontinent of bowel and bladder -Not moving around much at home but has walker -PT: Pt is limited by cognitive deficits, stating he does not use a RW, however reaching for RW once standing to mobilize. Pt currently requires Min A for mobility and based on family reporting recent decline in function/strength -Home with services GI bleed, chronic and likely 2/2 to colon mass seen on CT -no more bloody bowel movements since one 03/26/20 -H/H stable -No cyanosis, pallor Dysphagia -Swallowing eval: c/w thin liquids, pureed diet E. coli and Aerococcus urinae UTI -completed levaquin DM type II -ISS, FS AC/HS, consistent carb diet HTN -Stable -C/w home meds, low salt diet Dementia -Not off baseline, very confused -C/w home medications Glaucoma -C/w eye drops Hyperlipidemia -C/w statin AAA -Stable on CT above -F/u by PCP BPH -C/w tamsulosin DISCHARGE MEDICATIONS: Please see below. ALLERGIES: Please see below. PHYSICAL EXAMINATION ON DISCHARGE: VS: Please see below CONSTITUTIONAL: No acute distress, resting comfortably EYES: PERRLA, EOM intact HENT, MOUTH: Normocephalic, atraumatic, moist mucous membranes NECK: SUPPLE, no JVD, no lymphadenopathy, no carotid bruit CV: Regular rate and rhythm, S1S2 normal, no murmurs/rubs/gallops RESPIRATORY: Clear to auscultation bilaterally, no rales/rhonchi/wheezes GI: BS positive in 4 quadrants, soft, nontender, nondistended, no rebound or guarding, no organomegaly LABORATORY DATA: Please see below. ACTIVITY: [As tolerated]. DISPOSITION: Home Health Service. DISCHARGE INSTRUCTIONS: 1 follow up with pcp pin 3-5 days 2. follow up with srugery as scheduled 3. to decide on plan of care regarding mass - to discuss further with pcp and family - follow up with surgery as indicated depending on plan of care DISCHARGE CONDITION: [Stable]. TIME SPENT ON DISCHARGE: 35 minutes. Discharge Medications Scheduled Brimonidine Tartrate (Brimonidine Tartrate) 0.2 % Betty, 1 DROP OU TID, (Reported) Cetirizine HCl (Cetirizine HCl) 10 Mg Tablet, 10 MG PO QHS, (Reported) Divalproex Sodium (Divalproex Sodium ER) 500 Mg Tab.er.24h, 500 MG PO QHS, (Reported) Docusate Sodium (Docusate Sodium) 100 Mg Cap, 100 MG PO BID, (Reported) Finasteride (Finasteride) 5 Mg Tab, 5 MG PO QHS, (Reported) Furosemide (Furosemide) 40 Mg Tab, 40 MG PO DAILY, (Reported) Ketotifen Fumarate (Alaway) 0.025 % Seymour, 1 DROP OU BID, (Reported) L.acidoph/L.bulg/B.bif/S.therm (Bacid Caplet) 1 Tab Tab, 1 TAB PO QHS, (Reported) Latanoprost (Xalatan) 0.005% 2.5ML Drops, 1 DROP OU QHS, (Reported) Levofloxacin (Levofloxacin) 250 Mg Tablet, 250 MG PO DAILY@1800 Linagliptin (Tradjenta) 5 Mg Tab, 5 MG PO QHS, (Reported) Memantine HCl (Namenda) 10 Mg Tab, 10 MG PO BID, (Reported) Multivit-Min/FA/Lycopen/Lutein (Centrum Silver Ultra Men's Tab) 1 Each Tablet, 1 TAB PO DAILY, (Reported) Simvastatin (Zocor) 20 Mg Tab, 20 MG PO QHS, (Reported) Sodium Chloride (Sodium Chloride) 1 Gm Tablet, 1 GM PO DAILY, (Reported) Tamsulosin HCl (Flomax) 0.4 Mg Cap, 0.4 MG PO QHS, (Reported) Timolol Maleate (Timolol Maleate) 0.25% Betty.gel, 1 DROP OU DAILY, (Reported) Scheduled PRN Propylene Glycol/Peg 400 (Lubricating Eye Drop) 15 Ml Drops, 1 DROP OU QID PRN for DRY EYES, (Reported) Sodium Chloride (Saline Nasal Tamms) 88 Ml Tamms, 1 SPRAY NARES QID PRN for NASAL CONGESTION, (Reported) Allergies Coded Allergies: SEASONAL ALLERGIES (Verified Allergy, Unknown, 06/04/19) EDUARDO Inhibitors (Verified Adverse Reaction, Unknown, "sick", 05/15/19) GEORGETTE RECINOS MD Apr 12, 2020 06:27
== END 2020-03-29 14:55 | disposition home health service (06) | DRG 375 ==
LOC: EDBD 12:22 → M ED 12:22 → M MS5PR 15:34 → M ED INP 15:34 → M MS5PR 18:40
PROVIDERS: ADMIT Internal Medicine; ATTEND Internal Medicine
DX: C18.7 Malignant neoplasm of sigmoid colon (principal); K92.2 Gastrointestinal hemorrhage, unspecified; N39.0 Urinary tract infection, site not specified; F03.90 Unspecified dementia, unspecified severity, without behavioral disturbance, psychotic disturbance, mood disturbance, and anxiety; I12.9 Hypertensive chronic kidney disease with stage 1 through stage 4 chronic kidney disease, or unspecified chronic kidney disease; H40.9 Unspecified glaucoma; E78.5 Hyperlipidemia, unspecified; I71.4 Abdominal aortic aneurysm, without rupture; K52.9 Noninfective gastroenteritis and colitis, unspecified; N18.9 Chronic kidney disease, unspecified; Z66 Do not resuscitate; E11.22 Type 2 diabetes mellitus with diabetic chronic kidney disease; B96.20 Unspecified Escherichia coli [E. coli] as the cause of diseases classified elsewhere; R53.1 Weakness; J30.2 Other seasonal allergic rhinitis; B96.89 Other specified bacterial agents as the cause of diseases classified elsewhere; R32 Unspecified urinary incontinence; R15.9 Full incontinence of feces; R13.10 Dysphagia, unspecified; N40.1 Benign prostatic hyperplasia with lower urinary tract symptoms; Z11.52 Encounter for screening for COVID-19; Z98.41 Cataract extraction status, right eye; Z98.42 Cataract extraction status, left eye; Z88.8 Allergy status to other drugs, medicaments and biological substances; Z74.1 Need for assistance with personal care; Z74.09 Other reduced mobility; Z20.822 Contact with and (suspected) exposure to COVID-19

== ENCOUNTER 2020-05-19 13:26 | Inpatient (IN) | payer MEDICARE, OTHER ==
[~2020-05-19] VITALS: Ht 185.4 cm; Wt 70.2 kg
[~2020-05-19 13:26] MED LIST changes: +DIVA500T9 PO; +LEVO250T12 PO; +PROP15DR12 OU
--- NOTE | 2020-05-19 14:07 | REP ---
INDICATION: CVA - Nursing interventions must not delay CT COMPARISON: 03/24/2020 TECHNIQUE: Axial noncontrast images from the skull base to the thoracic inlet with coronal reformations. This CT examination was performed using the following dose reduction techniques: Automated exposure control, adjustment of mA and/or kv according to the patient's size, and use of iterative reconstruction technique. FINDINGS: Age-related atrophy and microvascular ischemic changes are appreciated. The ventricles and sulci are symmetric. Mccain-white differentiation is maintained. There is no evidence for acute intracranial hemorrhage, mass/mass effect, pathology or infarction. No extra-axial fluid collection. Calvarium is intact. Paranasal sinuses and mastoid air cells are clear. IMPRESSION: Age related atrophy and microvascular ischemic changes. No acute intracranial hemorrhage, infarction, or mass/mass effect. <Electronically signed by Francisco Trejo > 05/19/20 [id number]
[2020-05-19 14:19] LABS: BASO # 0.1 10^3/uL (0.0-0.2); BASO % 0.8 % (0.0-1.0); EOS # 0.1 10^3/uL (0.0-0.5); EOS % 1.3 % (0.0-3.0); HEMATOCRIT 32.6 % (42.0-52.0); HEMOGLOBIN 10.6 g/dl (13.5-17.5); LYMPH # 1.1 10^3/uL (1.5-5.0); LYMPH % 12.9 % (24.0-44.0); MEAN CORPUSCULAR HEMOGLOBIN 26.9 pg (27.0-33.0); MEAN CORPUSCULAR HGB CONC 32.5 g/dl (32.0-36.5); MEAN CORPUSCULAR VOLUME 82.7 fl (80.0-96.0); MONO # 1.1 10^3/uL (0.0-0.8); MONO % 12.1 % (2.0-8.0); NEUTROPHILS # 6.3 10^3/uL (1.5-8.5); NEUTROPHILS % 72.3 % (36.0-66.0); PLATELET COUNT, AUTOMATED 227 10^3/uL (150-450); RED BLOOD COUNT 3.94 10^6/uL (4.30-6.10); WHITE BLOOD COUNT 8.7 10^3/uL (4.0-10.0)
--- NOTE | 2020-05-19 14:28 | REP ---
INDICATION: CVA COMPARISON: 03/24/2020 TECHNIQUE: Portable AP view of the chest FINDINGS: Mediastinum and cardiac silhouette are stable. Lung cline demonstrate diffuse chronic interstitial changes. Superimposed lower lobe airspace disease is suspected. No effusion. No pneumothorax. Skeletal structures are stable. IMPRESSION: Chronic changes. Superimposed acute left lower lobe airspace disease cannot be excluded. <Electronically signed by Francisco Trejo > 05/19/20 [id number]
[2020-05-19 14:30] LABS: PROTHROMBIN TIME 13.4 SECONDS (12.5-14.3)
[2020-05-19 14:31] LABS: PARTIAL THROMBOPLASTIN TIME 28.9 SECONDS (24.2-38.5)
[2020-05-19 14:50] LABS: ALBUMIN 2.7 GM/DL (3.2-5.2); ALT/SGPT 18 U/L (12-78); BILIRUBIN,DIRECT 0.2 MG/DL (0.0-0.2); BILIRUBIN,TOTAL 0.5 MG/DL (0.2-1.0); BLOOD UREA NITROGEN 13 MG/DL (7-18); CALCIUM LEVEL 8.8 MG/DL (8.8-10.2); CARBON DIOXIDE LEVEL 31 MEQ/L (21-32); CHLORIDE LEVEL 95 MEQ/L (98-107); CK-MB VALUE MASS < 1.0 NG/ML (<3.6); CPK CREATINE PHOSPHOKINASE 14 U/L (39-308); CREATININE FOR GFR 0.75 MG/DL (0.70-1.30); GLOMERULAR FILTRATION RATE > 60.0 (>35); GLUCOSE, FASTING 131 MG/DL (70-100); MB/CK RELATIVE INDEX 7.14 (< OR =4); SODIUM LEVEL 130 MEQ/L (136-145); TOTAL PROTEIN 7.3 GM/DL (6.4-8.2); TROPONIN I < 0.02 NG/ML (< 0.10); VALPROIC ACID (DEPAKOTE) 45.9 UG/ML (50.0-100.0)
[2020-05-19] MEDS ORDERED: TIMO0.5S29 OU (15:58)
[2020-05-19] MEDS ORDERED: SODIUM CHLORIDE NASAL 0.65% SPRAY BTL (OCEAN) PRN (16:15)
[2020-05-19] MEDS ORDERED: ACETAMINOPHEN TAB 650MG DOSE (2X325MG) PO PRN (16:15)
[2020-05-19] MEDS ORDERED: ASPIRIN 81 MG CHEW TABLET PO ONE ×2 (16:15→17:00)
[2020-05-19 16:35] LABS: RSV AMPLIFICATION NEGATIVE (NEGATIVE)
[2020-05-19] MEDS ORDERED: GLUCOSE 4GM CHEW TABLET PO PRN (16:40)
[2020-05-19] MEDS ORDERED: DEXTROSE 50% 50 ML SYRINGE IV PRN (16:40)
[2020-05-19] MEDS ORDERED: GLUCAGON INJ 1MG VIAL SC PRN (16:40)
--- NOTE | 2020-05-19 16:41 | HPEPDOC ---
General Date of Admission 05/19/20 Date of Service: May 19, 2020 Chief Complaint The patient is a 84-year-old male admitted with a reason for visit of S/S Stroke. 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 The patient lives with his elderly who requires several home health aides and she is also compromised. His daughter was on the bedside and provided most of the history. According to her in the morning, the patient was in the toilet, he developed slurred speech associated with left arm weakness lasted around 20 minutes. Patient and family members did not notice any other neurological symptoms. After 20 minutes his symptoms completely resolved. Patient did not have any fever, chills, nausea, vomiting, diarrhea or dysuria. No chest pain reported. In ER patient was found to have negative head CT scan, chest x-ray did not show any acute infiltrate. Labs pertinent for sodium level of 130, hemoglobin 10.6, urine analysis unremarkable Home Medications Scheduled Brimonidine Tartrate (Brimonidine Tartrate) 0.2 % Betty, 1 DROP OU TID, (Reported) Cetirizine HCl (Cetirizine HCl) 10 Mg Tablet, 10 MG PO QHS, (Reported) Divalproex Sodium (Divalproex Sodium ER) 500 Mg Tab.er.24h, 500 MG PO QHS, (Reported) Docusate Sodium (Docusate Sodium) 100 Mg Cap, 100 MG PO BID, (Reported) Finasteride (Finasteride) 5 Mg Tab, 5 MG PO QHS, (Reported) Furosemide (Furosemide) 40 Mg Tab, 40 MG PO DAILY, (Reported) Latanoprost (Xalatan) 0.005% 2.5ML Drops, 1 DROP OU QHS, (Reported) Linagliptin (Tradjenta) 5 Mg Tab, 5 MG PO QHS, (Reported) Memantine HCl (Namenda) 10 Mg Tab, 10 MG PO BID, (Reported) Multivit-Min/FA/Lycopen/Lutein (Centrum Silver Ultra Men's Tab) 1 Each Tablet, 1 TAB PO DAILY, (Reported) Simvastatin (Zocor) 20 Mg Tab, 20 MG PO QHS, (Reported) Sodium Chloride (Sodium Chloride) 1 Gm Tablet, 1 GM PO DAILY, (Reported) Tamsulosin HCl (Flomax) 0.4 Mg Cap, 0.4 MG PO QHS, (Reported) Timolol Maleate (Timolol Maleate) 0.5% 5ML Drops, 1 DROP OU BID, (Reported) Scheduled PRN Propylene Glycol/Peg 400 (Lubricating Eye Drop) 15 Ml Drops, 1 DROP OU QID PRN for DRY EYES, (Reported) Sodium Chloride (Saline Nasal Austin) 88 Ml Austin, 1 SPRAY NARES QID PRN for NASAL CONGESTION, (Reported) Allergies Coded Allergies: SEASONAL ALLERGIES (Verified Allergy, Unknown, 06/04/19) EDUARDO Inhibitors (Verified Adverse Reaction, Unknown, "sick", 05/15/19) Past Medical History Medical History Diabetes mellitus type 2 Hypertension Dementia Glaucoma Hyperlipidemia AAA WITHOUT SURGERY, INFRARENAL ABDOMINAL AORTIC ANEURYSM MEASURING 5.3 CM MAXIMAL DIAMETER 04/2017 Chronic diarrhea ? dysphagia CKD Sigmoid cancer on palliative care EMPHYSEMA Seizure Surgical History HERNIAS BILATERAL CATARAC CYST REMOVED OFF LEFT NECK Family History I personally reviewed family history and found not pertinent Social History * Smoker: Denies Alcohol: Denies Drugs: denies A-FIB/CHADSVASC A-FIB History Current/History of A-Fib/PAF?: No Current PO Anticoag Therapy: No Review of Systems Constitutional: Denies: Chills, Fever Eyes: Denies: Pain ENT: Denies: Head Aches Skin: Denies: Rash Pulmonary: Denies: Dyspnea Cardiovascular: Denies: Chest Pain Gastrointestinal: Denies: Nausea Genitourinary: Denies: Dysuria Hematologic: Denies: Bruising Endocrine: Denies: Polydipsia Musculoskeletal: Denies: Neck Pain Neurological: Reports: Weakness (left arm), Change in speech Psych: Reports: Mood Normal Physical Examination General Exam: Positive: Alert, Cooperative Eye Exam: Positive: PERRLA ENT Exam: Positive: Atraumatic Neck Exam: Positive: Supple; Negative: JVD Chest Exam: Positive: Clear to auscultation Heart Exam: Positive: Rate Normal Telemetry: Positive: No significant arrhythmia Abdomen Exam: Positive: Normal bowel sounds Extremity Exam: Negative: Clubbing Skin Exam: Positive: Nl turgor and temperature Neuro Exam: Positive: Strength at 5/5 X4 ext Psych Exam: Positive: Mental status NL; Negative: Anxiety, Memory Intact Vital Signs Vital Signs Date Time Temp Pulse Resp B/P (MAP) Pulse Ox O2 Delivery O2 Flow Rate FiO2 05/19/20 15:45 102/52 (69) 05/19/20 15:41 65 97 05/19/20 13:43 98.3 20 Room Air Laboratory Data Labs 24H Laboratory Tests 2 05/19/20 13:50: Prothrombin Time 13.4, Prothromb Time International Ratio 1.00, Activated Partial Thromboplast Time 28.9 05/19/20 14:03: Immature Granulocyte % (Auto) 0.6, Neutrophils (%) (Auto) 72.3H, Lymphocytes (%) (Auto) 12.9L, Monocytes (%) (Auto) 12.1H, Eosinophils (%) (Auto) 1.3, Basophils (%) (Auto) 0.8, Neutrophils # (Auto) 6.3, Lymphocytes # (Auto) 1.1L, Monocytes # (Auto) 1.1H, Eosinophils # (Auto) 0.1, Basophils # (Auto) 0.1, Nucleated Red Blood Cells % (auto) 0.0, Anion Gap 4L, Glomerular Filtration Rate > 60.0, Calcium Level 8.8, Total Bilirubin 0.5, Direct Bilirubin 0.2, Aspartate Amino Transf (AST/SGOT) 16, Alanine Aminotransferase (ALT/SGPT) 18, Alkaline Phosphatase 70, Total Creatine Kinase 14L, Creatine Kinase MB < 1.0, Creatine Kinase MB Relative Index 7.14H, Troponin I < 0.02, Total Protein 7.3, Albumin 2.7L, Albumin/Globulin Ratio 0.6, Valproic Acid (Depakene) Level 45.9L 05/19/20 15:41: Urine Color YELLOW, Urine Appearance CLEAR, Urine pH 7.0, Urine Specific [place] 1.012, Urine Protein 1+H, Urine Glucose (UA) NEGATIVE, Urine Ketones 1+H, Urine Blood NEGATIVE, Urine Nitrite NEGATIVE, Urine Bilirubin NEGATIVE, Urine Uro bilinogen 0.2, Urine Leukocyte Esterase NEGATIVE, Urine WBC (Auto) 1, Urine RBC (Auto) 7H, Urine Hyaline Casts (Auto) 0, Urine Bacteria (Auto) NEGATIVE, Urine Squamous Epithelial Cells 0, Urine Sperm (Auto) CBC/BMP Laboratory Tests 05/19/20 14:03 Assessment/Plan Patient is 84 years old male with past history of diabetes mellitus type 2, hypertension, Alzheimer dementia, glaucoma, hyperlipidemia, history of AAA, 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 The patient lives with his elderly who requires several home health aides and she is also compromised. His daughter was on the bedside and provided most of the history. According to her in the morning, the patient was in the toilet, he developed slurred speech associated with left arm weakness lasted around 20 minutes. Patient and family members did not notice any other neurological symptoms. After 20 minutes his symptoms completely resolved. Patient did not have any fever, chills, nausea, vomiting, diarrhea or dysuria. No chest pain reported. In ER patient was found to have negative head CT scan, chest x-ray did not show any acute infiltrate. Labs pertinent for sodium level of 130, hemoglobin 10.6, urine analysis unremarkable Problems (1) TIA (transient ischemic attack) Status: Acute Problem Text: Differential diagnosis includes TIA versus CVA CT head negative Unlikely CVA given transient nature of the symptoms Will proceed with MRI and MRA Aspirin, statin Telemetry (2) Dementia Status: Acute Problem Text: Continue home meds (3) Physical deconditioning Status: Chronic Problem Text: Due to multiple comorbidities including advanced age, colon cancer, Alzheimer's dementia PT/OT (4) Diabetes mellitus Status: Chronic Problem Text: Diabetes diet Insulin sliding scale Glucose level under control (5) Hypertension Status: Chronic Problem Text: Blood pressures under control Continue cardioprotective medication (6) Abdominal aneurysm Status: Chronic Problem Text: Patient is not candidate for surgical intervention Continue to monitor Plan / VTE VTE Prophylaxis Ordered?: Yes MAXIMILIANO CASTILLO DO May 19, 2020 16:41
[2020-05-19] MEDS: HumaLOG INSULIN (NovoLOG) PER UNIT SC SCH ×2 (17:30→21:00)
--- NOTE | 2020-05-19 17:34 | ECGEPIP ---
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
--- NOTE | 2020-05-19 18:38 | REP ---
INDICATION: CVA COMPARISON: None. TECHNIQUE: Mccain scale and color Doppler evaluation using linear high frequency transducer Findings: FINDINGS: Two-dimensional mccain scale and color images demonstrate moderate mixed atheromatous plaquing (left greater than right). Color Doppler interrogation demonstrates normal arterial wave patterns and velocities with scattered spectral broadening. Normal flow direction is appreciated in the bilateral vertebral arteries. ICA peak systolic velocity: Right 133 cm/s; Left 94.4 cm/s ICA diastolic velocity: Right 24.1 cm/s; Left 22.6 cm/s ECA peak systolic velocity: Right 134 cm/s; Left 88 cm/s CCA peak systolic velocity: Right 109 cm/s; Left 144 cm/s ICA/CCA ratio: Right 1.22 cm/s; Left 0.66 cm/s IMPRESSION: Based on set standards narrowing falls within the less than 50% range. Narrowing through the left common carotid artery is also suggested. <Electronically signed by Francisco Trejo > 05/19/20 [id number]
[2020-05-19 19:20] VITALS: BP 128/60
--- NOTE | 2020-05-19 19:22 | REPVR ---
PROCEDURE INFORMATION: Exam: MR Angiogram Head Without Contrast, Arteries Exam date and time: 05/19/2020 6:30 PM Age: 84 years old Clinical indication: Cognitive deficit; Altered mental status; Patient HX: AMS; Additional info: CVA TECHNIQUE: Imaging protocol: MR angiogram head without contrast. Exam focused on the arteries. 3D rendering (Not supervised by radiologist): MIP and/or 3D reconstructed images were created by the technologist. COMPARISON: CT Head without contrast 05/19/2020 1:57 PM FINDINGS: ANTERIOR CIRCULATION: Right internal carotid artery: Mild stenoses of the petrous right internal carotid artery. No aneurysm. Right middle cerebral artery: No occlusion or significant stenosis. No aneurysm. Right anterior cerebral artery: No occlusion or significant stenosis. No aneurysm. Left internal carotid artery: Intracranial segment is patent with no significant stenosis. No aneurysm. Left middle cerebral artery: No occlusion or significant stenosis. No aneurysm. Left anterior cerebral artery: No occlusion or significant stenosis. No aneurysm. POSTERIOR CIRCULATION: Right vertebral artery: No occlusion or significant stenosis. No aneurysm. Left vertebral artery: No occlusion or significant stenosis. No aneurysm. Basilar artery: No occlusion or significant stenosis. No aneurysm. 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 There is focal hypoplasia or stenosis of the right posterior communicating artery. No aneurysm. Left posterior cerebral artery: No occlusion or significant stenosis. No aneurysm. IMPRESSION: 1. Mild stenoses of the petrous right internal carotid artery. 2. 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 There is focal hypoplasia or stenosis of the right posterior communicating artery. Electronically signed by: Asa Mariee On 05/19/2020 19:23:30 PM
--- NOTE | 2020-05-19 19:39 | REPVR ---
PROCEDURE INFORMATION: Exam: MR Head Without Contrast Exam date and time: 05/19/2020 6:30 PM Age: 84 years old Clinical indication: Altered mental status/memory loss; Confusion or disorientation; Patient HX: AMS; Additional info: CVA TECHNIQUE: Imaging protocol: MR of the head without contrast. COMPARISON: 1. CT Head without contrast 05/19/2020 1:[address] Head without contrast 03/24/2020 2:57:38 PM FINDINGS: Brain: No restricted diffusion within the brain to suggest an acute infarct. There is mild asymmetric increased signal intensity on FLAIR within the left parietal lobe, without abnormal signal intensity on the remaining sequences. This can be contributed by artifact. There are scattered foci of FLAIR hyperintensity within the cerebral white matter. There is no mass effect or restricted diffusion associated with these foci. In a patient this age, this likely represents chronic small vessel ischemic disease. Mild chronic midline deviation to the left identified. The degree deviation is approximately 6 mm. No cerebral edema. Magnetic susceptibility mineralization or hemosiderin identified within the bilateral basal ganglia. The vertebral arteries cause impressions on the adjacent medulla, left side greater than right. Cerebral ventricles: There is moderate prominence of the ventricles and sulci, compatible with atrophy. Bones/joints: Unremarkable, as visualized. Paranasal sinuses: Minimal mucosal thickening of ethmoid air cells bilaterally. Mastoid air cells: No mastoid effusion. Orbital cavity: Bilateral orbital lens implants. Soft tissues: Within the soft tissues of the upper neck posteriorly, there is a cystic collection of fluid or nodule measuring 1.4 cm in diameter. Evaluation of this finding is limited. IMPRESSION: 1. No acute infarct. 2. Mild white matter disease, likely representing chronic small vessel ischemic disease. 3. Moderate atrophy. 4. Within the soft tissues of the upper neck posteriorly, there is a cystic collection of fluid or nodule measuring 1.4 cm in diameter. Evaluation of this finding is limited. Clinical correlation is recommended. 5. Additional findings described above. Electronically signed by: Asa Mariee On 05/19/2020 19:40:37 PM
[2020-05-19 20:00] VITALS: BP 128/60
[2020-05-19] MEDS: DOCUSATE SODIUM 100MG CAPSULE PO SCH (21:00)
[2020-05-19] MEDS: TIMOLOL MALEATE 0.5% OPHTH SOLN 5 ML OU SCH (21:12)
[2020-05-19] MEDS: LATANOPROST 0.005% OPHTH SOLN 2.5 ML OU SCH (21:12)
[2020-05-19] MEDS: MEMANTINE 5MG TABLET (NAMENDA) PO SCH (21:12)
[2020-05-19] MEDS: CETIRIZINE (ZyrTEC) 10 MG TAB PO SCH (21:12)
[2020-05-19] MEDS: DIVALPROEX 500MG *ER* TAB PO SCH (21:13)
[2020-05-19] MEDS: SIMVASTATIN 20 MG TAB PO SCH (21:13)
[2020-05-19] MEDS: FINASTERIDE 5 MG TAB PO SCH (21:13)
[2020-05-19] MEDS: TAMSULOSIN 0.4 MG CAP PO SCH (21:13)
[2020-05-20] VITALS (7 sets, daily range): BP systolic 106–138; BP diastolic 56–64
[2020-05-20 06:32] LABS: HEMATOCRIT 30.9 % (42.0-52.0); HEMOGLOBIN 9.9 g/dl (13.5-17.5); MEAN CORPUSCULAR HEMOGLOBIN 26.9 pg (27.0-33.0); PLATELET COUNT, AUTOMATED 221 10^3/uL (150-450); RED BLOOD COUNT 3.68 10^6/uL (4.30-6.10); WHITE BLOOD COUNT 8.2 10^3/uL (4.0-10.0)
[2020-05-20 06:56] LABS: ALBUMIN 2.5 GM/DL (3.2-5.2); ALT/SGPT 17 U/L (12-78); BILIRUBIN,TOTAL 0.4 MG/DL (0.2-1.0); BLOOD UREA NITROGEN 11 MG/DL (7-18); CALCIUM LEVEL 8.3 MG/DL (8.8-10.2); CARBON DIOXIDE LEVEL 31 MEQ/L (21-32); CHLORIDE LEVEL 96 MEQ/L (98-107); CREATININE FOR GFR 0.58 MG/DL (0.70-1.30); GLOMERULAR FILTRATION RATE > 60.0 (>35); GLUCOSE, FASTING 86 MG/DL (70-100); MAGNESIUM LEVEL 2.4 MG/DL (1.8-2.4); POTASSIUM SERUM 3.9 MEQ/L (3.5-5.1); SODIUM LEVEL 133 MEQ/L (136-145); TOTAL PROTEIN 6.4 GM/DL (6.4-8.2)
[2020-05-20] MEDS: HumaLOG INSULIN (NovoLOG) PER UNIT SC SCH ×4 (07:30→21:14)
[2020-05-20] MEDS: FUROSEMIDE 40 MG TAB PO SCH (09:00)
[2020-05-20] MEDS: MULTIVITAMINS/MINERALS THERAP 1 TAB PO SCH (09:00)
[2020-05-20] MEDS: MEMANTINE 5MG TABLET (NAMENDA) PO SCH ×2 (09:00→21:14)
[2020-05-20] MEDS: ENOXAPARIN 40MG/0.4ML SYRINGE (J1650 PER 10MG) SC SCH (09:00)
[2020-05-20] MEDS: SODIUM CHLORIDE 1 GM TAB PO SCH (09:00)
[2020-05-20] MEDS: DOCUSATE SODIUM 100MG CAPSULE PO SCH ×2 (09:00→21:15)
[2020-05-20] MEDS: TIMOLOL MALEATE 0.5% OPHTH SOLN 5 ML OU SCH ×2 (09:01→21:14)
--- NOTE | 2020-05-20 11:57 | IPNPDOC ---
Text Note Date of Service The patient was seen on 05/20/20. NOTE Subjective: No any acute events overnight. No fever, no chills, no neurological focal deficits has been observed overnight. 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 The patient lives with his elderly who requires several home health aides and she is also compromised. His daughter was on the bedside and provided most of the history. According to her in the morning, the patient was in the toilet, he developed slurred speech associated with left arm weakness lasted around 20 minutes. Patient and family members did not notice any other neurological symptoms. After 20 minutes his symptoms completely resolved. Patient did not have any fever, chills, nausea, vomiting, diarrhea or dysuria. No chest pain reported. In ER patient was found to have negative head CT scan, chest x-ray did not show any acute infiltrate. Labs pertinent for sodium level of 130, hemoglobin 10.6, urine analysis unremarkable Problems (1) TIA (transient ischemic attack) Differential diagnosis includes TIA versus CVA CT head negative Unlikely CVA given transient nature of the symptoms MRI negative for stroke and MRA Mild stenoses of the petrous right internal carotid artery. 2. 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 There is focal hypoplasia or stenosis of the right posterior communicating artery. 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 (3) Physical deconditioning Due to multiple comorbidities including advanced age, colon cancer, Alzheimer's dementia PT/OT (4) Diabetes mellitus Diabetes diet Insulin sliding scale Glucose level under control (5) Hypertension Blood pressures under control Continue cardioprotective medication (6) Abdominal aneurysm Patient is not candidate for surgical intervention Continue to monitor VS,Fishbone, I+O VS, Fishbone, I+O Laboratory Tests 3/11/21 14:03 05/20/20 05:30 Vital Signs Date Time Temp Pulse Resp B/P (MAP) Pulse Ox O2 Delivery O2 Flow Rate FiO2 05/20/20 06:00 98.3 53 18 112/56 (74) 96 05/20/20 05:00 Room Air I&O- Last 24 Hours up to 6 AM 05/20/20 06:00 Intake Total 60 ml Output Total 300 ml Balance -240 ml MAXIMILIANO CASTILLO May 20, 2020 11:57
[2020-05-20] MEDS ORDERED: ASPI81CH8 PO (12:36)
[2020-05-20] MEDS ORDERED: ASPIRIN 81 MG CHEW TABLET PO ONE (13:00)
[2020-05-20] MEDS: LATANOPROST 0.005% OPHTH SOLN 2.5 ML OU SCH (21:14)
[2020-05-20] MEDS: TAMSULOSIN 0.4 MG CAP PO SCH (21:14)
[2020-05-20] MEDS: SIMVASTATIN 20 MG TAB PO SCH (21:15)
[2020-05-20] MEDS: FINASTERIDE 5 MG TAB PO SCH (21:15)
[2020-05-20] MEDS: DIVALPROEX 500MG *ER* TAB PO SCH (21:15)
[2020-05-20] MEDS: CETIRIZINE (ZyrTEC) 10 MG TAB PO SCH (21:15)
[2020-05-21 02:00] VITALS: BP 115/56
[2020-05-21 06:00] VITALS: BP 106/52
[2020-05-21] MEDS: HumaLOG INSULIN (NovoLOG) PER UNIT SC SCH (07:30)
[2020-05-21] MEDS: MULTIVITAMINS/MINERALS THERAP 1 TAB PO SCH (08:37)
[2020-05-21] MEDS: FUROSEMIDE 40 MG TAB PO SCH (08:37)
[2020-05-21] MEDS: TIMOLOL MALEATE 0.5% OPHTH SOLN 5 ML OU SCH (08:37)
[2020-05-21] MEDS: ENOXAPARIN 40MG/0.4ML SYRINGE (J1650 PER 10MG) SC SCH (08:37)
[2020-05-21] MEDS: MEMANTINE 5MG TABLET (NAMENDA) PO SCH (08:37)
[2020-05-21] MEDS: DOCUSATE SODIUM 100MG CAPSULE PO SCH (08:37)
[2020-05-21] MEDS: SODIUM CHLORIDE 1 GM TAB PO SCH (08:37)
[2020-05-21] MEDS ORDERED: ASPIRIN 81 MG CHEW TABLET PO SCH (09:00)
--- NOTE | 2020-05-21 12:13 | DS.PDOC ---
Discharge Summary General Date of Admission May 19, 2020 at 16:13 Date of Discharge 05/21/20 Discharge Summary PROCEDURES PERFORMED DURING STAY: [None]. ADMITTING DIAGNOSES: TIA (transient ischemic attack) Dementia Physical deconditioning Diabetes mellitus Hypertension Abdominal aneurysm DISCHARGE DIAGNOSES: TIA (transient ischemic attack) Dementia Physical deconditioning Diabetes mellitus Hypertension Abdominal aneurysm COMPLICATIONS/CHIEF COMPLAINT: Dementia Tia. 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 The patient lives with his elderly who requires several home health aides and she is also compromised. His daughter was on the bedside and provided most of the history. According to her in the morning, the patient was in the toilet, he developed slurred speech associated with left arm weakness lasted around 20 minutes. Patient and family members did not notice any other neurological symptoms. After 20 minutes his symptoms completely resolved. Patient did not have any fever, chills, nausea, vomiting, diarrhea or dysuria. No chest pain reported. In ER patient was found to have negative head CT scan, chest x-ray did not show any acute infiltrate. Labs pertinent for sodium level of 130, hemoglobin 10.6, urine analysis unremarkable HOSPITAL COURSE: During the hospital stay the following issues addressed (1) TIA (transient ischemic attack) Differential diagnosis includes TIA versus CVA CT head negative Unlikely CVA given transient nature of the symptoms MRI negative for stroke and MRA Mild stenoses of the petrous right internal carotid artery. 2. 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 There is focal hypoplasia or stenosis of the right posterior communicat ing artery. Doppler ultrasound of carotid arteries showed less than 50% carotid stenosis Patient received Aspirin, statin Patient will need follow-up with neurologist in the outpatient settings (2) Dementia Continue home meds bilingual social worker on board (3) Physical deconditioning Due to multiple comorbidities including advanced age, colon cancer, Alzheimer's dementia PT/OT (4) Diabetes mellitus Diabetes diet Insulin sliding scale Glucose level under control (5) Hypertension Blood pressures under control Continue cardioprotective medication (6) Abdominal aneurysm Patient is not candidate for surgical intervention Continue to monitor DISCHARGE MEDICATIONS: Please see below. ALLERGIES: Please see below. PHYSICAL EXAMINATION ON DISCHARGE: VITAL SIGNS: Please see below. GENERAL APPEARANCE: NAD HEENT: no scleral icterus, no JVD, EOMI CARDIOVASCULAR: S1S2 LUNGS: Diminished lung sounds bilaterally ABDOMEN: soft & not tender w palpitation MUSCULOSKELETAL: no cyanosis, no swelling INTEGUMENT: no generalized pallor NEUROLOGICAL: cranial nerve function from 2-12 intact intact, follows commands LABORATORY DATA: Please see below. IMAGING: [facility] NAME: MALORIE PIEDRA DATE OF : 1935 BUSINESS NUMBER: [id number] AGE: 84 SEX: M REPORT #: [id number] ROOM: [facility] TECHNOLOGIST: WESLEY DOCTOR: MAXIMILIANO CASTILLO DO Ordered for Date&Time: 05/19/20 1613 cc: [~ rep ct ivnm] Service Date&Time: 05/19/20 1830 This report is in Signed status. Interpretation performed by [facility]. Thank you for having your radiology procedures performed at [facility] RADIOLOGY REPORT Date&Time printed: [~ rep prt dt last] [~ rep prt tm last] Page 2 of 2 [place] [id number] RADIOLOGY REPORT This report is in Signed status. Interpretation performed by [facility]. Thank you for having your radiology procedures performed at [facility] RADIOLOGY REPORT Date&Time printed: [~ rep prt dt last] [~ rep prt tm last] Page 1 of 2 PROCEDURE INFORMATION: Exam: MR Angiogram Head Without Contrast, Arteries Exam date and time: 05/19/2020 6:30 PM Age: 84 years old Clinical indication: Cognitive deficit; Altered mental status; Patient HX: AMS; Additional info: CVA TECHNIQUE: Imaging protocol: MR angiogram head without contrast. Exam focused on the arteries. 3D rendering (Not supervised by radiologist): MIP and/or 3D reconstructed images were created by the technologist. COMPARISON: CT Head without contrast 05/19/2020 1:57 PM FINDINGS: ANTERIOR CIRCULATION: Right internal carotid artery: Mild stenoses of the petrous right internal carotid artery. No aneurysm. Right middle cerebral artery: No occlusion or significant stenosis. No aneurysm. Right anterior cerebral artery: No occlusion or significant stenosis. No aneurysm. Left internal carotid artery: Intracranial segment is patent with no significant stenosis. No aneurysm. Left middle cerebral artery: No occlusion or significant stenosis. No aneurysm. Left anterior cerebral artery: No occlusion or significant stenosis. No aneurysm. POSTERIOR CIRCULATION: Right vertebral artery: No occlusion or significant stenosis. No aneurysm. Left vertebral artery: No occlusion or significant stenosis. No aneurysm. Basilar artery: No occlusion or significant stenosis. No aneurysm. 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 No significant stenosis or occlusion of the remaining right BREASTFEEDING PROGRAM COORDINATOR. There is focal hypoplasia or stenosis of the right posterior communicating artery. No aneurysm. Left posterior cerebral artery: No occlusion or significant stenosis. No aneurysm. IMPRESSION: 1. Mild stenoses of the petrous right internal carotid artery. 2. 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 There is focal hypoplasia or stenosis of the right posterior communicating artery. Electronically signed by: Asa Mars On 05/19/2020 19:23:30 PM DD: ASA MARS MD 05/19/201829 DT: TIESHA 05/19/201922 DS: CASEY 05/19/201922 [~ rep ct labl] PROGNOSIS: Guarded ACTIVITY: [As tolerated]. DIET: Cardiac DISPOSITION: Home with home health ITEMS TO FOLLOWUP ON ON OUTPATIENT: Follow-up with neurologist in the outpatient settings DISCHARGE CONDITION: [Stable]. TIME SPENT ON DISCHARGE: 30 minutes. Vital Signs/I&Os Vital Signs Date Time Temp Pulse Resp B/P (MAP) Pulse Ox O2 Delivery O2 Flow Rate FiO2 05/21/20 06:00 98.8 61 18 106/52 96 Room Air I&O- Last 24 Hours up to 6 AM0 05/21/20 06:00 Intake Total 760 ml Output Total 450 ml Balance 310 ml Laboratory Data Labs 24H Laboratory Tests 2 05/20/20 12:16: Bedside Glucose (Misc Panel) 164H 05/20/20 17:10: Bedside Glucose (Misc Panel) 65L 05/20/20 20:55: Bedside Glucose (Misc Panel) 279H 05/21/20 07:36: Bedside Glucose (Misc Panel) 97 FSBS Laboratory Tests Test 05/20/20 12:16 05/20/20 17:10 05/20/20 20:55 05/21/20 07:36 Range/Units Bedside Glucose (Misc Panel) 164 65 279 97 83-110 MG/DL Microbiology Microbiology 05/20/20 Stool Occult Blood (ALEKSANDAR) - Final, Complete Discharge Medications Scheduled Aspirin (Children's Aspirin) 81 Mg Tab.chew, 81 MG PO DAILY Brimonidine Tartrate (Brimonidine Tartrate) 0.2 % Betty, 1 DROP OU TID, (Reported) Cetirizine HCl (Cetirizine HCl) 10 Mg Tablet, 10 MG PO QHS, (Reported) Divalproex Sodium (Divalproex Sodium ER) 500 Mg Tab.er.24h, 500 MG PO QHS, (Reported) Docusate Sodium (Docusate Sodium) 100 Mg Cap, 100 MG PO BID, (Reported) Finasteride (Finasteride) 5 Mg Tab, 5 MG PO QHS, (Reported) Furosemide (Furosemide) 40 Mg Tab, 40 MG PO DAILY, (Reported) Latanoprost (Xalatan) 0.005% 2.5ML Drops, 1 DROP OU QHS, (Reported) Linagliptin (Tradjenta) 5 Mg Tab, 5 MG PO QHS, (Reported) Memantine HCl (Namenda) 10 Mg Tab, 10 MG PO BID, (Reported) Multivit-Min/FA/Lycopen/Lutein (Centrum Silver Ultra Men's Tab) 1 Each Tablet, 1 TAB PO DAILY, (Reported) Simvastatin (Zocor) 20 Mg Tab, 20 MG PO QHS, (Reported) Sodium Chloride (Sodium Chloride) 1 Gm Tablet, 1 GM PO DAILY, (Reported) Tamsulosin HCl (Flomax) 0.4 Mg Cap, 0.4 MG PO QHS, (Reported) Timolol Maleate (Timolol Maleate) 0.5% 5ML Drops, 1 DROP OU BID, (Reported) Scheduled PRN Propylene Glycol/Peg 400 (Lubricating Eye Drop) 15 Ml Drops, 1 DROP OU QID PRN for DRY EYES, (Reported) Sodium Chloride (Saline Nasal [place]) 88 Ml [place], 1 SPRAY NARES QID PRN for NASAL CONGESTION, (Reported) Allergies Coded Allergies: SEASONAL ALLERGIES (Verified Allergy, Unknown, 06/04/19) EDUARDO Inhibitors (Verified Adverse Reaction, Unknown, "sick", 05/15/19) MAXIMILIANO CASTILLO DO May 21, 2020 12:13
== END 2020-05-21 12:19 | disposition home health service (06) | DRG 69 ==
LOC: M ED 13:26 → M ED INP 16:13 → ENRESERV 17:50 → M MSPAV 19:17
PROVIDERS: ADMIT Internal Medicine; ATTEND Internal Medicine
DX: G45.9 Transient cerebral ischemic attack, unspecified (principal); C18.7 Malignant neoplasm of sigmoid colon; E11.22 Type 2 diabetes mellitus with diabetic chronic kidney disease; I12.9 Hypertensive chronic kidney disease with stage 1 through stage 4 chronic kidney disease, or unspecified chronic kidney disease; G30.9 Alzheimer's disease, unspecified; F02.80 Dementia in other diseases classified elsewhere, unspecified severity, without behavioral disturbance, psychotic disturbance, mood disturbance, and anxiety; H40.9 Unspecified glaucoma; E78.5 Hyperlipidemia, unspecified; R53.1 Weakness; R47.81 Slurred speech; N18.9 Chronic kidney disease, unspecified; Z51.5 Encounter for palliative care; Z66 Do not resuscitate; J30.2 Other seasonal allergic rhinitis; J43.9 Emphysema, unspecified; Z98.41 Cataract extraction status, right eye; Z98.42 Cataract extraction status, left eye; K52.9 Noninfective gastroenteritis and colitis, unspecified; R13.10 Dysphagia, unspecified; Z79.899 Other long term (current) drug therapy; Z88.8 Allergy status to other drugs, medicaments and biological substances